=== PATIENT | female | born 1960 | race Caucasian/White ===

== ENCOUNTER → 2017-03-07 | Outpatient (CLI) | payer BC ==
--- NOTE | 2017-03-08 10:47 | MM ---
Reason for exam: screening (asymptomatic). Last mammogram was performed 7 years ago. History: Patient is postmenopausal and is nulliparous. Taking estrogen for 12 years beginning at age 45. Physical Findings: A clinical breast exam by your physician is recommended on an annual basis and results should be correlated with mammographic findings. MG 3D Screening Mammo W/Cad Bilateral CC and MLO view(s) were taken. Prior study comparison: March 09, 2010, bilateral digital screening mammogram. February 21, 2007, CAD bilateral diagnostic mammogram. The breast tissue is heterogeneously dense. This may lower the sensitivity of mammography. Benign calcifications. New nodular density far posterior right breast. No significant changes when compared with prior studies. ASSESSMENT: Incomplete: need additional imaging evaluation, BI-RAD 0 RECOMMENDATION: Special view mammogram of the right breast. If lesion persists on supplemental views, image directed ultrasound is recommended. [facility] will attempt to contact patient to return for supplemental views and ultrasound if indicated.
== END | disposition home or self-care (01) ==
LOC: RADMAMWWP 08:23
PROVIDERS: ATTEND Family Medicine
DX: Z12.31 Encounter for screening mammogram for malignant neoplasm of breast (principal)
CPT/HCPCS: 77063; G0202

== ENCOUNTER → 2017-03-13 | Outpatient (CLI) | payer BC ==
--- NOTE | 2017-03-13 09:51 | MM ---
Reason for exam: additional evaluation requested from abnormal screening. Last mammogram was performed less than 1 month ago. History: Patient is postmenopausal and is nulliparous. Taking estrogen for 12 years beginning at age 45. Physical Findings: Nurse did not find any significant physical abnormalities on exam. MG 3D Work Up W/Cad RT CC, MLO, ML, spot compression CC, and spot compression MLO view(s) were taken of the right breast. Prior study comparison: March 07, 2017, bilateral MG 3d screening mammo w/cad. March 09, 2010, bilateral digital screening mammogram. Density is improved. 6 month follow up is recommended. These results were verbally communicated with the patient and result sheet given to the patient on 03/13/17. ASSESSMENT: Probably benign, BI-RAD 3 RECOMMENDATION: Follow-up diagnostic mammogram of the right breast in 6 months.
== END | disposition home or self-care (01) ==
LOC: RADMAMWWP 08:43
PROVIDERS: ATTEND Family Medicine
DX: R92.8 Other abnormal and inconclusive findings on diagnostic imaging of breast (principal)
CPT/HCPCS: G0206; G0279

== ENCOUNTER 2017-07-13 09:19 | Day surgery (SDC) | payer BC ==
[2017-07-10 14:58] VITALS: BMI 20.7
[~2017-07-13 09:19] MED LIST: LACTATED RINGERS 1,000 ML IV SCH; LIDOCAINE 1% 20 ML VIAL (10MG/ML) FOR IV START INTRADERMA PRN
[2017-07-13 10:18] VITALS: RESP 16
[2017-07-13] MEDS ORDERED: ONDANSETRON 4 MG/2 ML VIAL IVP ONE (10:53)
[2017-07-13] MEDS ORDERED: GLYCOPYRROLATE 0.2 MG/ML 2 ML VIAL ONE (11:26)
[2017-07-13] MEDS ORDERED: PROPOFOL 10 MG/ML 20 ML VIAL IV ONE (11:26)
[2017-07-13] MEDS ORDERED: LIDOCAINE 1% INJ 10MG/ML (20 ML MDV) ONE (11:26)
--- NOTE | 2017-07-13 11:40 | P.GSHP ---
History of Present Illness H&P Date: 07/13/17 Chief Complaint: Diarrhea This a 56-year-old female who's had issues with diarrhea. Patient has had diarrhea for proximal. She's had some mild abdominal pain. Her last colonoscopy was over 5 years ago. She's had a previous bowel resection. - Constitutional Constitutional: Reports as per HPI Past Medical History Past Medical History: Hyperlipidemia, Hypertension Additional Past Medical History / Comment(s): MOTHER HAS COLON CA. POS WATERY LOOSE STOOLS SINCE 04/2017; HX "TWISTED BOWL, AFTER HYSTERECTOMY 2004." History of Any Multi-Drug Resistant Organisms: None Reported Past Surgical History: Appendectomy, Bowel Resection, Hysterectomy, Orthopedic Surgery Additional Past Surgical History / Comment(s): Mitral Valve Repair 2005. JAYANT ANKLE LIGAMENT REPAIR; RT KNEE MENISCUS; RT SHOULDER SURG; JAYANT ELBOW TENDINITIS SURG. JAYANT CATARACTS. Past Anesthesia/Blood Transfusion Reactions: Family History of Problems w/ Anesthesia, Postoperative Nausea & Vomiting (PONV) Additional Past Anesthesia/Blood Transfusion Reaction / Comment(s): MOTHER HAD PONV. Smoking Status: Never smoker - Past Family History Mother Family Medical History: Cancer Medications and Allergies Home Medications Medication Instructions Recorded Confirmed Type Aspirin 325 mg PO DAILY 09/25/14 07/10/17 History Estrogens, Conjugated [Premarin] 0.3 mg PO DAILY 09/25/14 07/13/17 History Lisinopril [Prinivil] 40 mg PO DAILY 09/25/14 07/10/17 History Metoprolol Succinate (ER) [Toprol 25 mg PO DAILY 07/10/17 07/10/17 History Xl] Multivit with Calcium,Iron,Min 1 each PO DAILY 07/10/17 07/10/17 History [Women's Multivitamin] Simvastatin [Simvastatin] 40 mg PO HS 07/10/17 07/13/17 History Allergies Allergy/AdvReac Type Severity Reaction Status Date / Time latex Allergy Rash/Hives Verified 09/25/14 05:23 Penicillins Allergy Rash/Hives Verified 09/25/14 05:23 acetaminophen [From Vicodin] AdvReac Confusion Verified 09/25/14 05:23 codeine AdvReac Confusion Verified 09/25/14 05:23 hydrocodone bitartrate AdvReac Confusion, Verified 07/10/17 14:35 [From Vicodin] ELEV HR, RASH Surgical - Exam Vital Signs Pulse Resp BP Pulse Ox 59 L 16 122/82 100 07/13/17 10:15 07/13/17 10:15 07/13/17 10:15 07/13/17 10:15 - General well developed - Eyes PERRL - ENT normal pinna - Neck no masses - Respiratory normal expansion - Abdomen Abdomen: soft, non tender Assessment and Plan Plan: Diarrhea. We'll perform colonoscopy.
--- NOTE | 2017-07-13 12:02 | P.OP ---
Date of Procedure: 07/13/17 Preoperative Diagnosis: Diarrhea Postoperative Diagnosis: Diarrhea Procedure(s) Performed: Colonoscopy Implants: Anesthesia: MAC Surgeon: Mendez Bull Pathology: other (Rectum) Condition: stable Disposition: PACU Indications for Procedure: Operative Findings: Description of Procedure: The patient's placed on the endoscopy table in the lateral position. She received IV sedation. Digital rectal exam was performed which revealed no abnormalities. The flexible colonoscope was then placed patient anus passed throughout the entire colon. The ileocecal valve was visualized. The patient had a previous right colectomy. The ileocolonic anastomosis visualized. The scope was withdrawn the remainder the ascending colon and transverse colon appeared normal. In the descending; was a few scattered diverticula. Scope was then brought back the rectum and this was questioned inflamed. A biopsies performed. Scope was then withdrawn remainder the rectum appeared normal. Scope was withdrawn for patient.
[2017-07-13 12:32] VITALS: BP 123/71; PULSE 54
== END 2017-07-13 12:37 | disposition home or self-care (01) ==
LOC: ORWHC2ENDO 09:19
PROVIDERS: ATTEND Surgery
DX: K57.30 Diverticulosis of large intestine without perforation or abscess without bleeding (principal); R19.7 Diarrhea, unspecified; Z90.49 Acquired absence of other specified parts of digestive tract; E78.5 Hyperlipidemia, unspecified; I10 Essential (primary) hypertension; Z80.0 Family history of malignant neoplasm of digestive organs; Z79.82 Long term (current) use of aspirin; Z79.899 Other long term (current) drug therapy; Z88.0 Allergy status to penicillin; Z91.040 Latex allergy status
CPT/HCPCS: 88305; 45380; J2405; J2001; J2704

== ENCOUNTER 2019-02-20 04:29 | Emergency (ER) | payer BC ==
[2019-02-20] MEDS ORDERED: ONDANSETRON 4 MG/2 ML VIAL IVP STA (04:53)
[2019-02-20] MEDS ORDERED: SODIUM CHLORIDE 0.9% 500 ML 500 ML IV STA (04:53)
[2019-02-20 05:13] LABS: Basophils % (A) 0 %; Eosinophils # (A) 0.1 k/uL (0-0.7); Eosinophils % (A) 2 %; HCT 38.4 % (34.0-46.0); HGB 12.8 gm/dL (11.4-16.0); Lymphocytes % (A) 22 %; MCH 31.3 pg (25.0-35.0); MCHC 33.3 g/dL (31.0-37.0); Mean Platelet Volume 6.7; Monocytes # (A) 0.4 k/uL (0-1.0); Monocytes % (A) 7 %; Neutrophils # (A) 3.1 k/uL (1.3-7.7); Neutrophils % (A) 67 %; Platelet Count 215 k/uL (150-450); RBC 4.09 m/uL (3.80-5.40); RDW 13.4 % (11.5-15.5); WBC 4.7 k/uL (3.8-10.6)
--- NOTE | 2019-02-20 05:22 | ED ---
Nausea/Vomiting/Diarrhea HPI - General Chief complaint: Abdominal Pain Stated complaint: back pain/headache Time Seen by Provider: 02/20/19 04:36 Source: patient Mode of arrival: ambulatory Limitations: no limitations - History of Present Illness Initial comments: This patient's 58-year-old woman who presents to be evaluated for nausea, diarrhea, and abdominal pain. The patient states that this had started on Monday, with some generalized abdominal cramping, nausea and diarrhea. She states that she was feeling a little bit better and went to work last night. While she was at work however she began to have a recurrence of the diarrhea and the cramping. I states she was also feeling somewhat lightheaded and felt she may be a bit dehydrated. She felt she should be evaluated for this. Patient denies fever or chills. She has not had vomiting though is having nausea. No bright red blood or dark tarry stools. MD complaint: nausea, diarrhea, abdominal pain - Related Data Home Medications Medication Instructions Recorded Confirmed Aspirin 325 mg PO DAILY 09/25/14 07/10/17 Estrogens, Conjugated [Premarin] 0.3 mg PO DAILY 09/25/14 07/13/17 Lisinopril [Prinivil] 40 mg PO DAILY 09/25/14 07/10/17 Metoprolol Succinate (ER) [Toprol 25 mg PO DAILY 07/10/17 07/10/17 Xl] Multivit with Calcium,Iron,Min 1 each PO DAILY 07/10/17 07/10/17 [Women's Multivitamin] Simvastatin 40 mg PO HS 07/10/17 07/13/17 Allergies Allergy/AdvReac Type Severity Reaction Status Date / Time latex Allergy Rash/Hives Verified 02/20/19 04:40 Penicillins Allergy Rash/Hives Verified 02/20/19 04:40 acetaminophen [From Vicodin] AdvReac Confusion Verified 02/20/19 04:40 codeine AdvReac Confusion Verified 02/20/19 04:40 hydrocodone bitartrate AdvReac Confusion, Verified 02/20/19 04:40 [From Vicodin] ELEV HR, RASH Review of Systems ROS Statement: Those systems with pertinent positive or pertinent negative responses have been documented in the HPI. ROS Other: All systems not noted in ROS Statement are negative. Constitutional: Denies: fever, chills, weakness Respiratory: Denies: cough, dyspnea Cardiovascular: Denies: chest pain, palpitations, edema Gastrointestinal: Reports: abdominal pain, nausea, diarrhea. Denies: vomiting, constipation, melena, hematochezia Genitourinary: Denies: dysuria, hematuria Musculoskeletal: Denies: back pain Skin: Denies: rash Neurological: Denies: headache Past Medical History Past Medical History: Hyperlipidemia, Hypertension Additional Past Medical History / Comment(s): MOTHER HAS COLON CA. POS WATERY LOOSE STOOLS SINCE 04/2017; HX "TWISTED BOWeL, AFTER HYSTERECTOMY 2004." History of Any Multi-Drug Resistant Organisms: None Reported Past Surgical History: Appendectomy, Bowel Resection, Hysterectomy, Orthopedic Surgery Additional Past Surgical History / Comment(s): Mitral Valve Repair 2005. JAYANT ANKLE LIGAMENT REPAIR; RT KNEE MENISCUS; RT SHOULDER SURG; JAYANT ELBOW TENDINITIS SURG. JAYANT CATARACTS. Past Anesthesia/Blood Transfusion Reactions: Family History of Problems w/ Anesthesia, Postoperative Nausea & Vomiting (PONV) Additional Past Anesthesia/Blood Transfusion Reaction / Comment(s): MOTHER HAD PONV. Past Psychological History: No Psychological Hx Reported Smoking Status: Never smoker - Past Family History Mother Family Medical History: Cancer General Exam Limitations: no limitations General appearance: alert, in no apparent distress Head exam: Present: atraumatic, normocephalic Eye exam: Present: normal appearance. Absent: scleral icterus, conjunctival injection ENT exam: Present: mucous membranes dry Respiratory exam: Present: normal lung sounds bilaterally. Absent: respiratory distress, wheezes, rales, rhonchi, stridor Cardiovascular Exam: Present: regular rate, normal rhythm, normal heart sounds. Absent: systolic murmur, diastolic murmur, rubs, gallop GI/Abdominal exam: Present: soft. Absent: distended, tenderness, guarding, rebound, rigid, mass Extremities exam: Present: normal inspection, normal capillary refill. Absent: pedal edema, calf tenderness Back exam: Present: normal inspection. Absent: CVA tenderness (R), CVA tenderness (L) Neurological exam: Present: alert Skin exam: Present: warm, dry, intact, normal color. Absent: rash Course Vital Signs 02/20/19 02/20/19 02/20/19 04:37 06:31 07:14 Temperature 97.4 F L 97.8 F Pulse Rate 69 51 L Respiratory 16 18 16 Rate Blood Pressure 98/64 96/56 O2 Sat by Pulse 100 100 Oximetry Medical Decision Making - Lab Data Result diagrams: 02/20/19 05:00 02/20/19 05:00 Lab Results 02/20/19 02/20/19 Range/Units 05:00 05:00 WBC 4.7 (3.8-10.6) k/uL RBC 4.09 (3.80-5.40) m/uL Hgb 12.8 (11.4-16.0) gm/dL Hct 38.4 (34.0-46.0) % MCV 94.0 (80.0-100.0) fL MCH 31.3 (25.0-35.0) pg MCHC 33.3 (31.0-37.0) g/dL RDW 13.4 (11.5-15.5) % Plt Count 215 (150-450) k/uL Neutrophils % 67 % Lymphocytes % 22 % Monocytes % 7 % Eosinophils % 2 % Basophils % 0 % Neutrophils # 3.1 (1.3-7.7) k/uL Lymphocytes # 1.0 (1.0-4.8) k/uL Monocytes # 0.4 (0-1.0) k/uL Eosinophils # 0.1 (0-0.7) k/uL Basophils # 0.0 (0-0.2) k/uL Sodium 138 (137-145) mmol/L Potassium 4.1 (3.5-5.1) mmol/L Chloride 112 H (98-107) mmol/L Carbon Dioxide 18 L (22-30) mmol/L Anion Gap 8 mmol/L BUN 15 (7-17) mg/dL Creatinine 1.15 H (0.52-1.04) mg/dL Est GFR (CKD-EPI)AfAm 60 (>60 ml/min/1.73 sqM) Est GFR (CKD-EPI)NonAf 52 (>60 ml/min/1.73 sqM) Glucose 95 (74-99) mg/dL Calcium 10.9 H (8.4-10.2) mg/dL Total Bilirubin 0.5 (0.2-1.3) mg/dL AST 30 (14-36) U/L ALT 35 (9-52) U/L Alkaline Phosphatase 72 (38-126) U/L Total Protein 6.4 (6.3-8.2) g/dL Albumin 4.0 (3.5-5.0) g/dL Amylase 47 (30-110) U/L Lipase 161 (23-300) U/L Disposition Clinical Impression: Abdominal pain Disposition: HOME SELF-CARE Condition: Good Instructions (If sedation given, give patient instructions): Abdominal Pain (ED) Is patient prescribed a controlled substance at d/c from ED?: No Referrals: Francisco Javier Malone DO [Primary Care Provider] - 1-2 days
[2019-02-20 05:24] LABS: Calcium 10.9 mg/dL (8.4-10.2); Potassium 4.1 mmol/L (3.5-5.1); Total Bilirubin 0.5 mg/dL (0.2-1.3); Total Protein 6.4 g/dL (6.3-8.2)
[2019-02-20 07:15] VITALS: BP 96/56; PULSE 51; RESP 16; TEMP 97.8
--- NOTE | 2019-02-20 07:17 | CT ---
EXAM: CT Abdomen and Pelvis Without Intravenous Contrast CLINICAL HISTORY: Diarrhea, nausea and vomiting TECHNIQUE: Axial computed tomography images of the abdomen and pelvis without intravenous contrast. CTDI is 5.87 mGy and DLP is 307.9 mGy-cm. This CT exam was performed using one or more of the following dose reduction techniques: automated exposure control, adjustment of the mA and/or kV according to patient size, and/or use of iterative reconstruction technique. COMPARISON: No relevant prior studies available. FINDINGS: Lung bases: Unremarkable. No mass. No consolidation. Heart: Evidence of mitral valve replacement is suggested. ABDOMEN: Liver: Unremarkable. Gallbladder and bile ducts: Unremarkable. No calcified stones. No ductal dilation. Pancreas: Unremarkable. No ductal dilation. Spleen: Unremarkable. No splenomegaly. Adrenals: Unremarkable. No mass. Kidneys and ureters: Unremarkable. No obstructing stones. No hydronephrosis. Stomach and bowel: Evaluation of bowel mucosa is limited without contrast. Postsurgical changes noted in the right lower quadrant near the ileocecal valve region. The stomach is predominantly decompressed. Scattered diverticulosis noted involving the distal colon. No obstruction. PELVIS: Appendix: The appendix is not clearly identified and may be surgically absent. Bladder: Unremarkable. No stones. Reproductive: The uterus is surgically absent. ABDOMEN and PELVIS: Intraperitoneal space: Unremarkable. No free air. No significant fluid collection. Bones/joints: No acute fracture. No dislocation. Soft tissues: Unremarkable. Vasculature: Mild atherosclerotic changes involving the aorta are noted. No abdominal aortic aneurysm. Lymph nodes: Nonspecific scattered mesenteric lymph nodes noted. IMPRESSION: Postsurgical changes involving the right lower quadrant. Negative noncontrast CT examination of the abdomen and pelvis without evidence for bowel obstruction. No free intraperitoneal fluid or pneumoperitoneum.
== END 2019-02-20 07:30 | disposition home or self-care (01) ==
LOC: EC 04:29
DX: R10.84 Generalized abdominal pain (principal); M54.9 Dorsalgia, unspecified; R51 Headache; R19.7 Diarrhea, unspecified; R11.0 Nausea; Z79.82 Long term (current) use of aspirin; Z79.890 Hormone replacement therapy; Z79.899 Other long term (current) drug therapy; Z91.040 Latex allergy status; Z88.0 Allergy status to penicillin; Z88.6 Allergy status to analgesic agent; Z88.5 Allergy status to narcotic agent; E78.5 Hyperlipidemia, unspecified; I10 Essential (primary) hypertension; Z90.710 Acquired absence of both cervix and uterus; Z90.49 Acquired absence of other specified parts of digestive tract; Z98.890 Other specified postprocedural states; Z80.0 Family history of malignant neoplasm of digestive organs
CPT/HCPCS: 36415; 74176; 80053; 82150; 83690; 85025; 96361; 96374; 99284

== ENCOUNTER → 2019-03-19 | Outpatient (CLI) | payer BC ==
--- NOTE | 2019-03-19 15:45 | US ---
EXAMINATION TYPE: US abdomen complete DATE OF EXAM: 03/19/2019 COMPARISON: CLINICAL HISTORY: K81.9,Cholecystitis R19.7 Diarrhea. Diarrhea, pain after eating EXAM MEASUREMENTS: Liver Length: 14.0 cm Gallbladder Wall: 0.2 cm CBD: 0.2 cm Spleen: 8.1 cm Right Kidney: 8.6 x 2.9 x 3.2 cm Left Kidney: 8.5 x 3.4 x 4.0 cm Pancreas: wnl Liver: wnl Gallbladder: wnl, fold seen Evidence for sonographic Felipe's sign: neg CBD: wnl Spleen: wnl Right Kidney: prominent pyramids Left Kidney: prominent pyramids Upper IVC: wnl Abd Aorta: No AAA visualized. Aorta tapers through its visualized course. IMPRESSION: 1. Normal abdomen ultrasound
== END | disposition home or self-care (01) ==
LOC: RADUSWWP 06:52
PROVIDERS: ATTEND Family Medicine
DX: R19.7 Diarrhea, unspecified (principal); K81.9 Cholecystitis, unspecified
CPT/HCPCS: 76700

== ENCOUNTER → 2019-04-22 | Outpatient (CLI) | payer BC ==
--- NOTE | 2019-04-22 15:24 | NM ---
EXAMINATION TYPE: NM hepatobiliary w CCK DATE OF EXAM: 04/22/2019 COMPARISON: Abdominal ultrasound dated 03/19/2019 HISTORY: Biliary dyskinesia TECHNIQUE: After the intravenous administration of 4.67 mCi Tc 99m Mebrofenin hepatobiliary scintigra phy is performed. Immediate images post injection. FINDINGS: There is satisfactory initial accumulation of tracer by the liver. The gallbladder is visualized wit hin 26 minutes. The small bowel activity is noted within the minutes. At one hour CCK was administe red, patient was injected with 1.0 mcg of Kinevac, and gallbladder ejection fraction is calculated at 58 %, in the normal range. Therefore there is no scintigraphic evidence of cystic or common bile du ct obstruction to suggest acute cholecystitis or gallbladder dyskinesia. IMPRESSION: No scintigraphic evidence of acute cholecystitis, chronic cholecystitis or biliary dyskin esia.
== END ==
LOC: RADNMMAIN 12:28
PROVIDERS: ATTEND Surgery
DX: K82.8 Other specified diseases of gallbladder (principal)
CPT/HCPCS: 78227; A9537; J2805

== ENCOUNTER 2019-04-29 09:19 | Day surgery (SDC) | payer BC ==
[2019-04-24 13:17] VITALS: BMI 20.1
[~2019-04-29 09:19] MED LIST changes: -LIDOCAINE 1% 20 ML VIAL (10MG/ML) FOR IV START INTRADERMA PRN
[2019-04-29 10:05] VITALS: TEMP 97.8
[2019-04-29] MEDS ORDERED: LIDOCAINE 1% 20 ML VIAL (10MG/ML) FOR IV START INTRADERMA ONE (10:05)
[2019-04-29] MEDS ORDERED: LACTATED RINGERS 1,000 ML IV ONE (10:05)
[2019-04-29] MEDS ORDERED: ONDANSETRON 4 MG/2 ML VIAL IVP ONE (10:14)
[2019-04-29] MEDS ORDERED: PROPOFOL 10 MG/ML 20 ML VIAL IV ONE (10:50)
--- NOTE | 2019-04-29 10:56 | P.GSHP ---
History of Present Illness H&P Date: 04/29/19 Chief Complaint: Epigastric abdominal pain, nausea, diarrhea This a 58-year-old female who presents today for EGD and colonoscopy. She's had complaints of epigastric dull pain, nausea and diarrhea. Past Medical History Past Medical History: Hyperlipidemia, Hypertension Additional Past Medical History / Comment(s): MOTHER HAS COLON CA. POS WATERY LOOSE STOOLS SINCE 04/2017; HX "TWISTED BOWeL, AFTER HYSTERECTOMY 2004." History of Any Multi-Drug Resistant Organisms: None Reported Past Surgical History: Appendectomy, Bowel Resection, Hysterectomy, Orthopedic Surgery Additional Past Surgical History / Comment(s): Mitral Valve Repair 2005. JAYANT ANKLE LIGAMENT REPAIR; RT KNEE MENISCUS; RT SHOULDER SURG; JAYANT ELBOW TENDINITIS SURG. JAYANT CATARACTS. Past Anesthesia/Blood Transfusion Reactions: Family History of Problems w/ Anesthesia, Postoperative Nausea & Vomiting (PONV) Additional Past Anesthesia/Blood Transfusion Reaction / Comment(s): MOTHER HAD PONV. Smoking Status: Never smoker - Past Family History Mother Family Medical History: Cancer Additional Family Medical History / Comment(s): colon cancer Medications and Allergies Home Medications Medication Instructions Recorded Confirmed Type Aspirin 325 mg PO DAILY 09/25/14 04/24/19 History Estrogens, Conjugated [Premarin] 0.3 mg PO Q48H 09/25/14 04/24/19 History Lisinopril [Prinivil] 10 mg PO DAILY 09/25/14 04/24/19 History Metoprolol Succinate (ER) [Toprol 25 mg PO DAILY 07/10/17 04/24/19 History Xl] Multivit with Calcium,Iron,Min 1 each PO DAILY 07/10/17 04/24/19 History [Women's Multivitamin] Simvastatin 10 mg PO Q48H 07/10/17 04/24/19 History ALPRAZolam [Xanax] 0.25 mg PO HS 04/24/19 04/24/19 History Cholecalciferol (Vitamin D3) 500 unit PO DAILY 04/24/19 04/24/19 History [Vitamin D3] Escitalopram [Lexapro] 5 mg PO DAILY 04/24/19 04/24/19 History Allergies Allergy/AdvReac Type Severity Reaction Status Date / Time latex Allergy Rash/Hives Verified 04/24/19 13:08 Penicillins Allergy Rash/Hives Verified 04/24/19 13:08 acetaminophen [From Vicodin] AdvReac Confusion Verified 04/24/19 13:08 codeine AdvReac Confusion Verified 04/24/19 13:08 hydrocodone bitartrate AdvReac Confusion, Verified 04/24/19 13:08 [From Vicodin] ELEV HR, RASH Surgical - Exam Vital Signs Temp Pulse Resp BP Pulse Ox 97.8 F 66 18 142/70 100 04/29/19 10:05 04/29/19 10:05 04/29/19 10:05 04/29/19 10:05 04/29/19 10:05 - General well developed, well nourished, no distress - Eyes PERRL - ENT normal pinna - Neck no masses - Respiratory normal expansion - Cardiovascular Rhythm: regular - Abdomen Abdomen: soft, non tender Assessment and Plan Assessment: History of epigastric abdominal pain, nausea, diarrhea. We'll perform EGD and colonoscopy.
--- NOTE | 2019-04-29 11:16 | P.OP ---
Date of Procedure: 04/29/19 Preoperative Diagnosis: Epigastric dull pain Nausea Diarrhea Postoperative Diagnosis: Antral gastritis No evidence of hernia Mild esophagitis Procedure(s) Performed: EGD Anesthesia: MAC Surgeon: Mendez Bull Pathology: other (Antrum, esophagus) Condition: stable Disposition: PACU Description of Procedure: Patient's placed on the endoscopy table in the lateral position. She received IV sedation. The gastroscope placed oropharynx and passed in the esophagus and into the stomach. Scope then placed through the pylorus. First and second portion of the duodenum appeared normal. The scope was then brought back the antrum this appeared Mildly inflamed. A biopsies performed. The scope was then retroflexed and the remainder of the stomach appeared normal. There is no significant hiatal hernia. The GE junction was at 40 cm. The distal esophagus appeared mildly inflamed and a biopsies performed. The proximal esophagus appeared normal. Scope withdrawn patient. Next digital rectal exam was performed, this revealed no rales. The flexible colonoscope was then placed patient anus and passed with colon. The patient appears right colectomy. The ileocolonic anastomosis cannot be well visualized. Several times made to maneuver the colonoscope however this wasn't possible. At this point scope withdrawn. The remainder of the transverse colon descending colon and sigmoid colon appeared normal. There is known to any inflammation throughout the colon. The scope was then brought back the rectum this appeared normal. Scope withdrawn for patient.
[2019-04-29 12:08] VITALS: BP 107/67; PULSE 50; RESP 15
== END 2019-04-29 12:01 | disposition home or self-care (01) ==
LOC: ORWHC2ENDO 09:19
PROVIDERS: ATTEND Surgery
DX: K29.50 Unspecified chronic gastritis without bleeding (principal); K20.9 Esophagitis, unspecified; R19.7 Diarrhea, unspecified; Z90.49 Acquired absence of other specified parts of digestive tract; Z98.0 Intestinal bypass and anastomosis status; Z80.0 Family history of malignant neoplasm of digestive organs; I10 Essential (primary) hypertension; E78.5 Hyperlipidemia, unspecified; F32.9 Major depressive disorder, single episode, unspecified; F41.9 Anxiety disorder, unspecified; Z90.710 Acquired absence of both cervix and uterus; Z79.82 Long term (current) use of aspirin; Z79.899 Other long term (current) drug therapy; Z88.0 Allergy status to penicillin; Z88.5 Allergy status to narcotic agent; Z91.040 Latex allergy status
CPT/HCPCS: 45378; 43239; 88305; J2405; J2704

== ENCOUNTER 2021-10-07 11:58 | Inpatient (IN) | payer BC ==
--- NOTE | 2021-10-07 12:23 | ED ---
General Adult HPI - General Chief complaint: Shortness of Breath Stated complaint: cardiac history with tachycardia Time Seen by Provider: 10/07/21 12:20 Source: patient, family Mode of arrival: ambulatory Limitations: no limitations - History of Present Illness Initial comments: Patient presents to the ED with her niece for evaluation. Patient states that for the past week or so, she has had exertional dyspnea, lightheadedness and symptoms of "acid reflux". Patient also states that she has had right scapular pain and left-sided neck pain for the past week or so. Patient also states that she had an elevated heart rate reading on her home monitor earlier today. Patient states that she has chronic and unchanged diarrhea. Patient's niece states that the patient's speech seemed a little slurred to her over the telephone when she called her earlier today, but she states that the patient's speech is now normal. Patient denies trauma or injury, fever or chills, headache, focal numbness/weakness/neuro deficit, visual changes, chest pain or p ressure, arm pain, jaw pain, lower back pain, pleuritic pain, cough or cold symptoms, palpitations, syncope, abdominal pain, nausea/vomiting, bloody or melanotic stool, dysuria/hematuria/urinary frequency/urinary symptoms, leg or calf swelling or pain, or any other symptoms or complaints. - Related Data Home Medications Medication Instructions Recorded Confirmed Aspirin 325 mg PO DAILY 09/25/14 10/07/21 Lisinopril [Prinivil] 10 mg PO DAILY 09/25/14 10/07/21 Metoprolol Succinate (ER) [Toprol 25 mg PO DAILY 07/10/17 10/07/21 Xl] Multivit with Calcium,Iron,Min 1 each PO DAILY 07/10/17 10/07/21 [Women's Multivitamin] ALPRAZolam [Xanax] 0.25 mg PO HS 04/24/19 10/07/21 Escitalopram [Lexapro] 10 mg PO DAILY 04/24/19 10/07/21 Atorvastatin [Lipitor] 10 mg PO DAILY 10/07/21 10/07/21 Allergies Allergy/AdvReac Type Severity Reaction Status Date / Time latex Allergy Rash/Hives Verified 10/07/21 14:06 Penicillins Allergy Rash/Hives Verified 10/07/21 14:06 acetaminophen [From Vicodin] AdvReac Confusion Verified 10/07/21 14:06 codeine AdvReac Confusion Verified 10/07/21 14:06 hydrocodone bitartrate AdvReac Confusion, Verified 10/07/21 14:06 [From Vicodin] ELEV HR, RASH Review of Systems ROS Statement: Those systems with pertinent positive or pertinent negative responses have been documented in the HPI. ROS Other: All systems not noted in ROS Statement are negative. Past Medical History Past Medical History: Hyperlipidemia, Hypertension Additional Past Medical History / Comment(s): MOTHER HAS COLON CA. POS WATERY LOOSE STOOLS SINCE 04/2017; HX "TWISTED BOWeL, AFTER HYSTERECTOMY 2004." History of Any Multi-Drug Resistant Organisms: None Reported Past Surgical History: Appendectomy, Bowel Resection, Hysterectomy, Orthopedic Surgery Additional Past Surgical History / Comment(s): Mitral Valve Repair 2005. JAYANT ANKLE LIGAMENT REPAIR; RT KNEE MENISCUS; RT SHOULDER SURG; JAYANT ELBOW TENDINITIS SURG. JAYANT CATARACTS. Past Anesthesia/Blood Transfusion Reactions: Family History of Problems w/ Anesthesia, Postoperative Nausea & Vomiting (PONV) Additional Past Anesthesia/Blood Transfusion Reaction / Comment(s): MOTHER HAD PONV. Past Psychological History: No Psychological Hx Reported Smoking Status: Never smoker Past Alcohol Use History: Rare Past Drug Use History: None Reported - Past Family History Mother Family Medical History: Cancer Additional Family Medical History / Comment(s): colon cancer General Exam Limitations: no limitations General appearance: alert, in no apparent distress Head exam: Present: atraumatic, normocephalic Eye exam: Present: normal appearance, PERRL, EOMI ENT exam: Present: mucous membranes dry Neck exam: Present: other (Trachea is in midline). Absent: tenderness, meningismus Respiratory exam: Present: normal lung sounds bilaterally. Absent: respiratory distress, wheezes, rales, rhonchi, stridor Cardiovascular Exam: Present: normal rhythm, tachycardia, normal heart sounds, other (1+ radial pulses bilaterally) GI/Abdominal exam: Present: soft. Absent: distended, tenderness, guarding Extremities exam: Present: full ROM, other (Negative Homans sign bilaterally). Absent: tenderness, pedal edema, calf tenderness Back exam: Absent: tenderness, CVA tenderness (R), CVA tenderness (L) Neurological exam: Present: alert, oriented X3, CN II-XII intact. Absent: motor sensory deficit Psychiatric exam: Present: normal affect, normal mood Skin exam: Present: warm, dry, intact, normal color Course Vital Signs 10/07/21 10/07/21 10/07/21 12:10 12:30 13:29 Temperature 96.4 F L Pulse Rate 110 H 98 Pulse Rate [ 99 [employer] ] Respiratory 18 18 Rate Blood Pressure 55/42 76/44 O2 Sat by Pulse 98 96 Oximetry 10/07/21 10/07/21 14:09 14:11 Temperature Pulse Rate Pulse Rate [ [employer] ] Respiratory 18 Rate Blood Pressure 84/51 O2 Sat by Pulse Oximetry - Reevaluation(s) Reevaluation #1: 10/07/21 14:52 Case, H&P, test results thus far and ED management thus far were discussed with Dr. Luong (cutting machine fixer). He agrees with the ED workup and treatment thus far. He agrees to see the patient in consultation. He has no further recommendations at this time. 10/07/21 15:07 Case, H&P, test results thus far, ED management thus far and my discussion with Dr. Luong as above were discussed with Dr. Davis. Dr. Davis has already seen the patient in the ED. He recommends continued IV fluid boluses given the patient's low blood pressure readings, but he accepts hospital floor admission. He states that he will follow-up with the patient's VQ scan results, and he does not recommend anticoagulation at this time. He has no further recommendations at this time. 10/07/21 15:22 Patient's blood pressure is improving with IV fluid boluses in the ED. Patient remains alert, breathing comfortably and in no acute distress. Patient denies development of any new symptoms while in the ED. Patient and niece are aware of the patient's test results thus far, and patient agrees with hospital admission at this time. EKG Findings - EKG Comments: EKG Findings:: Sinus tachycardia, ventricular rate 107 bpm, no ectopy, normal [place] and QRS intervals, normal QT interval, incomplete right bundle branch block, inferior and anterolateral lateral ST depressions and biphasic T waves, no old EKG is available for comparison Medical Decision Making - Medical Decision Making Patient is noted to have acute renal failure on laboratory evaluation. A CT abdomen/pelvis without contrast has been ordered for further evaluation of the patient's renal failure and is still pending at this time. Patient's d-dimer is mildly elevated, but given the patient's acute renal failure, a VQ scan was ordered to rule out PE in lieu of a CT scan with IV contrast. Dr. Davis has agreed to follow-up on the patient's VQ scan report. Patient's troponin is within normal limits. The etiology of the patient's acute renal failure is unclear at this time. Patient's blood pressure has improved with IV fluid hydration in the ED, and will continue to fluid rehydrate the patient. Dr. Davis has accepted hospital admission. Nephrology has been consulted. - Lab Data Result diagrams: 10/07/21 12:33 10/07/21 16:00 Lab Results 10/07/21 10/07/21 10/07/21 Range/Units 12:33 12:33 12:33 WBC 8.0 (3.8-10.6) k/uL RBC 4.17 (3.80-5.40) m/uL Hgb 13.3 (11.4-16.0) gm/dL Hct 41.4 (34.0-46.0) % MCV 99.3 (80.0-100.0) fL MCH 32.0 (25.0-35.0) pg MCHC 32.2 (31.0-37.0) g/dL RDW 12.5 (11.5-15.5) % Plt Count 337 (150-450) k/uL MPV 7.6 Neutrophils % 61 % Lymphocytes % 26 % Monocytes % 9 % Eosinophils % 1 % Basophils % 0 % Neutrophils # 4.9 (1.3-7.7) k/uL Lymphocytes # 2.1 (1.0-4.8) k/uL Monocytes # 0.7 (0-1.0) k/uL Eosinophils # 0.1 (0-0.7) k/uL Basophils # 0.0 (0-0.2) k/uL PT 10.0 (9.0-12.0) sec INR 0.9 (<1.2) APTT 23.1 (22.0-30.0) sec D-Dimer 0.82 H (<0.60) mg/L FEU Sodium 137 (137-145) mmol/L Potassium 3.9 (3.5-5.1) mmol/L Chloride 111 H (98-107) mmol/L Carbon Dioxide 7 L* (22-30) mmol/L Anion Gap 19 mmol/L BUN 69 H (7-17) mg/dL Creatinine 7.89 H* (0.52-1.04) mg/dL Est GFR (CKD-EPI)AfAm 6 (>60 ml/min/1.73 sqM) Est GFR (CKD-EPI)NonAf 5 (>60 ml/min/1.73 sqM) Glucose 119 H (74-99) mg/dL Plasma Lactic Acid Chava (0.7-2.0) mmol/L Calcium 11.4 H (8.4-10.2) mg/dL Magnesium 1.5 L (1.6-2.3) mg/dL Total Bilirubin 0.4 (0.2-1.3) mg/dL AST 16 (14-36) U/L ALT 13 (4-34) U/L Alkaline Phosphatase 87 (38-126) U/L Troponin I (0.000-0.034) ng/mL NT-Pro-B Natriuret Pep pg/mL Total Protein 7.8 (6.3-8.2) g/dL Albumin 4.5 (3.5-5.0) g/dL Coronavirus (PCR) (Not Detectd) 10/07/21 10/07/21 10/07/21 Range/Units 12:33 12:33 12:33 WBC (3.8-10.6) k/uL RBC (3.80-5.40) m/uL Hgb (11.4-16.0) gm/dL Hct (34.0-46.0) % MCV (80.0-100.0) fL MCH (25.0-35.0) pg MCHC (31.0-37.0) g/dL RDW (11.5-15.5) % Plt Count (150-450) k/uL MPV Neutrophils % % Lymphocytes % % Monocytes % % Eosinophils % % Basophils % % Neutrophils # (1.3-7.7) k/uL Lymphocytes # (1.0-4.8) k/uL Monocytes # (0-1.0) k/uL Eosinophils # (0-0.7) k/uL Basophils # (0-0.2) k/uL PT (9.0-12.0) sec INR (<1.2) APTT (22.0-30.0) sec D-Dimer (<0.60) mg/L FEU Sodium (137-145) mmol/L Potassium (3.5-5.1) mmol/L Chloride (98-107) mmol/L Carbon Dioxide (22-30) mmol/L Anion Gap mmol/L BUN (7-17) mg/dL Creatinine (0.52-1.04) mg/dL Est GFR (CKD-EPI)AfAm (>60 ml/min/1.73 sqM) Est GFR (CKD-EPI)NonAf (>60 ml/min/1.73 sqM) Glucose (74-99) mg/dL Plasma Lactic Acid Chava 1.3 (0.7-2.0) mmol/L Calcium (8.4-10.2) mg/dL Magnesium (1.6-2.3) mg/dL Total Bilirubin (0.2-1.3) mg/dL AST (14-36) U/L ALT (4-34) U/L Alkaline Phosphatase (38-126) U/L Troponin I <0.012 (0.000-0.034) ng/mL NT-Pro-B Natriuret Pep 1370 pg/mL Total Protein (6.3-8.2) g/dL Albumin (3.5-5.0) g/dL Coronavirus (PCR) (Not Detectd) 10/07/21 Range/Units 12:33 WBC (3.8-10.6) k/uL RBC (3.80-5.40) m/uL Hgb (11.4-16.0) gm/dL Hct (34.0-46.0) % MCV (80.0-100.0) fL MCH (25.0-35.0) pg MCHC (31.0-37.0) g/dL RDW (11.5-15.5) % Plt Count (150-450) k/uL MPV Neutrophils % % Lymphocytes % % Monocytes % % Eosinophils % % Basophils % % Neutrophils # (1.3-7.7) k/uL Lymphocytes # (1.0-4.8) k/uL Monocytes # (0-1.0) k/uL Eosinophils # (0-0.7) k/uL Basophils # (0-0.2) k/uL PT (9.0-12.0) sec INR (<1.2) APTT (22.0-30.0) sec D-Dimer (<0.60) mg/L FEU Sodium (137-145) mmol/L Potassium (3.5-5.1) mmol/L Chloride (98-107) mmol/L Carbon Dioxide (22-30) mmol/L Anion Gap mmol/L BUN (7-17) mg/dL Creatinine (0.52-1.04) mg/dL Est GFR (CKD-EPI)AfAm (>60 ml/min/1.73 sqM) Est GFR (CKD-EPI)NonAf (>60 ml/min/1.73 sqM) Glucose (74-99) mg/dL Plasma Lactic Acid Chava (0.7-2.0) mmol/L Calcium (8.4-10.2) mg/dL Magnesium (1.6-2.3) mg/dL Total Bilirubin (0.2-1.3) mg/dL AST (14-36) U/L ALT (4-34) U/L Alkaline Phosphatase (38-126) U/L Troponin I (0.000-0.034) ng/mL NT-Pro-B Natriuret Pep pg/mL Total Protein (6.3-8.2) g/dL Albumin (3.5-5.0) g/dL Coronavirus (PCR) Not Detected (Not Detectd) - Radiology Data Radiology results: report reviewed (Chest x-ray: No acute process. No significant change from prior.) Noncontrast head CT: No acute intracranial hemorrhage or midline shift. There is mild diffuse cerebral atrophy redemonstrated. No significant change from prior. CT abdomen/pelvis without contrast: No renal stones or hydronephrosis is seen bilaterally. Abnormal fluid in the proximal colon could reflect product of diarrhea and/or mild uncomplicated colitis. Correlate clinically. Otherwise no suspicious new or acute findings seen. VQ scan: No scintigraphic evidence for acute pulmonary embolism. Critical Care Time Critical Care Time: Yes Total Critical Care Time: 40 Disposition Clinical Impression: Acute renal failure Narrative: Hypotension Disposition: ADMITTED IP TO THIS HOSP Condition: Stable Is patient prescribed a controlled substance at d/c from ED?: No Time of Disposition: 14:53
[2021-10-07] MEDS ORDERED: SODIUM CHLORIDE 0.9% 1,000 ML IV STA (12:30)
[2021-10-07 12:55] LABS: Basophils % (A) 0 %; Eosinophils # (A) 0.1 k/uL (0-0.7); Eosinophils % (A) 1 %; HCT 41.4 % (34.0-46.0); HGB 13.3 gm/dL (11.4-16.0); Lymphocytes # (A) 2.1 k/uL (1.0-4.8); Lymphocytes % (A) 26 %; MCHC 32.2 g/dL (31.0-37.0); MCV 99.3 fL (80.0-100.0); Mean Platelet Volume 7.6; Monocytes # (A) 0.7 k/uL (0-1.0); Monocytes % (A) 9 %; Neutrophils # (A) 4.9 k/uL (1.3-7.7); Neutrophils % (A) 61 %; Platelet Count 337 k/uL (150-450); RBC 4.17 m/uL (3.80-5.40); RDW 12.5 % (11.5-15.5)
--- NOTE | 2021-10-07 12:58 | XR ---
EXAMINATION TYPE: XR chest 1V portable DATE OF EXAM: 10/07/2021 COMPARISON: Chest x-ray August 06, 2015 HISTORY: Dyspnea and atrial fibrillation. TECHNIQUE: Single AP portable frontal upright view of the chest is obtained. FINDINGS: Overlying sternal wires redemonstrated. Metallic cardiac valvular ring again seen. There is no suspicious new focal air space opacity, pleural effusion, or pneumothorax seen. The cardiac silh ouette size is stable and within normal limits. The osseous structures are demineralized. IMPRESSION: No acute process. No significant change from prior.
[2021-10-07 13:18] LABS: Albumin 4.5 g/dL (3.5-5.0); Calcium 11.4 mg/dL (8.4-10.2); Magnesium 1.5 mg/dL (1.6-2.3); Potassium 3.9 mmol/L (3.5-5.1); Total Bilirubin 0.4 mg/dL (0.2-1.3); Total Protein 7.8 g/dL (6.3-8.2)
--- NOTE | 2021-10-07 13:21 | CT ---
EXAMINATION TYPE: CT brain wo con DATE OF EXAM: 10/07/2021 HISTORY: Lightheadedness, tachycardia CT DLP: 1107.4 mGycm. Automated Exposure Control for Dose Reduction was Utilized. TECHNIQUE: CT scan of the head is performed without contrast. COMPARISON: CT brain September 25, 2014. FINDINGS: There is no acute intracranial hemorrhage or midline shift identified. There is mild diff use ventricular and sulcal prominence consistent with diffuse cerebral atrophy greatest over bilatera l frontal lobes redemonstrated. Guzman-white matter differentiation is maintained. Moderate calcificat ion distal internal carotid arteries bilaterally redemonstrated. The globes are intact and the visual ized sinuses are clear. IMPRESSION: No acute intracranial hemorrhage or midline shift. There is mild diffuse cerebral atrop hy redemonstrated. No significant change from prior.
[2021-10-07 13:31] LABS: INR 0.9 (<1.2); Partial Thromboplastin Time 23.1 sec (22.0-30.0)
[2021-10-07] MEDS ORDERED: Magnesium Replacement Protocol 1 EACH MISC MISCELLANE PRN (14:40)
[2021-10-07] MEDS ORDERED: Potassium Replacement Protocol 1 EACH MISC MISCELLANE PRN (14:40)
[2021-10-07] MEDS ORDERED: SODIUM CHLORIDE 0.9% 1,000 ML IV ONE (14:43)
--- NOTE | 2021-10-07 15:15 | HP ---
HISTORY AND PHYSICAL I am covering for Dr. Malone. DATE OF SERVICE: 10/07/2021 CHIEF COMPLAINT: Shortness of breath and weakness and renal failure. HISTORY OF PRESENT ILLNESS: This 60-year-old woman with a past medical history of hysterectomy and subsequently small bowel resection, being followed by Dr. Malone in the outpatient setting, also has a history of hypertension, hyperlipidemia, and the patient had an elective after hysterectomy in 2004 and surgery with bowel resection. Subsequently patient is having diarrhea on multiple occasions daily. 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 Evaluation showed creatinine 7.9, indicating acute renal failure with severe metabolic acidosis and magnesium was 1.4. Troponins area negative. NT pro proBNP is 1370. EKG which was reviewed personally by me showed sinus tachycardia, incomplete right bundle branch block and diffuse ST-T changes. The patient is admitted for further evaluation and treatment. There is no history of any fever, rigor or chills at this time. The patient also had a CT of the brain which showed no acute abnormalities. A midline shift was noted. Chest x-ray was also personally reviewed and showed no acute process. PAST MEDICAL HISTORY: Bowel resection, hypertension, hyperlipidemia, history of colon cancer in mother, history of appendectomy. HOME MEDICATIONS: Reviewed. They include multivitamin, Toprol-XL, Prinivil, Lexapro, Lipitor, aspirin, Xanax. Doses are reviewed. ALLERGIES: LATEX, PENICILLIN, VICODIN, CODEINE. FAMILY HISTORY: History of colon cancer in the family. SOCIAL HISTORY: No history of smoking. Occasional alcohol intake. REVIEW OF SYSTEMS: ENT: No diminished hearing. No diminished vision. CARDIOVASCULAR SYSTEM: As mentioned earlier. RESPIRATORY SYSTEM: As mentioned earlier. GI: As mentioned earlier. : As mentioned earlier. NERVOUS SYSTEM: As mentioned earlier. ALLERGY/IMMUNOLOGY: No asthma or hay fever. MUSCULOSKELETAL: As mentioned earlier. HEMATOLOGY/ONCOLOGY: No history of anemia. ENDOCRINE: No history of diabetes or hypothyroidism. CONSTITUTIONAL: As mentioned earlier. DERMATOLOGY: Negative. RHEUMATOLOGY: Negative. PSYCHIATRY: As mentioned earlier. PHYSICAL EXAMINATION: Patient alert and oriented x3. Pulse is 98, blood pressure ntd, respiration 18, temperature normal, pulse ox 96% on room air. HEENT: Conjunctivae normal. Oral mucosa dry. NECK: Jugular venous distention . CARDIOVASCULAR: S1, S2 muffled. No S3. No S4. RESPIRATION: Breath sounds diminished at the bases. A few scattered rhonchi. No crackles. ABDOMEN: Soft, scaphoid, nontender. No mass palpable. Status post old surgery, healed scars. LEGS: No edema. No swelling. NERVOUS SYSTEM: Higher functions as mentioned earlier. Moves all 4 limbs. No focal motor or sensory deficit. LYMPHATICS: No lymph node palpable in neck, axillae or groin. SKIN: No ulcer, rash, bleeding. JOINTS: No active deforming arthropathy. LABS: CBC within normal limits and D-dimer is 0.82. Sodium 137, potassium 3.9, CO2 7, and creatinine 7.9. ASSESSMENT: 1. Acute renal failure with acute tubular necrosis and prerenal renal factors secondary to possible dehydration. 2. Chest pain and neck pain for evaluation. 3. Severe dehydration and hypotension, hypovolemic shock, present on admission. 4. Severe diarrhea possibly secondary to short-bowel syndrome. 5. Elevated D-dimer. 6. Hypomagnesemia. 7. Hypercalcemia, possibly secondary dehydration. 8. History of hypertension. 9. History of hyperlipidemia. 10.History of distant bowel and intestinal resection. 11.History of hysterectomy. 12.History of bowel resection. 13.History of mitral valve repair 2005. 14.Incomplete right bundle branch block on EKG. 15.Family history of problems with anesthesia. 16.Family history of colon cancer. 17.Severe protein-calorie malnutrition. BMI 19.3. 18.FULL CODE. RECOMMENDATIONS AND DISCUSSION: In this 60-year-old woman who presented with multiple complex medical issues, we will monitor the patient closely, continue the current medications, continue symptomatic treatment. Will initiate IV fluids. Cardiology consultation. Nephrology evaluation. The exact etiology of renal failure is unknown at this time I would recommend continuing to monitor. I would also recommend a gastroenterology evaluation, probably as an outpatient, for further evaluation. Otherwise, repeat labs. Monitor electrolytes closely. Supplement magnesium. Supplement potassium. CT scan of the abdomen and pelvis was also ordered. Guarded prognosis because of multiple complex medical issues. Further recommendations to follow. A copy of this dictation is being forwarded to Dr. Malone, who is the primary physician. MMODL / IJN: [id number] / KAELYN
[2021-10-07] MEDS: SODIUM CHLORIDE 0.9% 1,000 ML IV SCH (15:57)
--- NOTE | 2021-10-07 16:13 | NM ---
EXAMINATION TYPE: NM pul vent and perfuse DATE OF EXAM: 10/07/2021 COMPARISON: Chest x-ray earlier today HISTORY: Dyspnea and cough. Recent surgery. TECHNIQUE: Utilizing inhalation of 67.8 mCi Tc 99m DTPA aerosol and intravenous injection of 5.0 mCi of Tc 99m MAA, ventilation and perfusion images are acquired post injection in multiple projections. FINDINGS: Normal radiotracer distribution is noted in the lungs. There is no evidence of mismatched defects. IMPRESSION: No scintigraphic evidence for acute pulmonary embolism.
[2021-10-07 16:37] LABS: Calcium 10.1 mg/dL (8.4-10.2)
--- NOTE | 2021-10-07 16:41 | CT ---
EXAMINATION TYPE: CT abdomen pelvis wo con DATE OF EXAM: 10/07/2021 HISTORY: flank pain CT DLP: 295.8 mGycm. Automated Exposure Control for Dose Reduction was Utilized. TECHNIQUE: CT scan of the abdomen and pelvis is performed without oral or IV contrast. COMPARISON: CT abdomen and pelvis February 20, 2019 FINDINGS: Within the limitations of a non-contrast study, the following observations are made. LUNG BASES: Surgical change at level of mitral valve is partially imaged. There is right coronary art shantell stent and/or calcification redemonstrated. Inferior sternal wire partially imaged.. LIVER/GB: Liver heterogeneously hypodense consistent with diffuse fatty infiltration. No biliary dila tation noted. PANCREAS: No significant abnormality is seen. SPLEEN: No significant abnormality is seen. ADRENALS: No significant abnormality is seen. KIDNEYS: No renal stones or hydronephrosis seen bilaterally. No intraluminal calculi in the bladder. BOWEL: Suboptimal evaluation without enteric contrast. Surgical sutures right lower quadrant from alex e-to-side bowel anastomosis redemonstrated. No suspicious small or large bowel dilatation. Few sigmoi d colonic diverticula. Abnormal fluid within the right and transverse colon with air-fluid levels cou ld reflect product of diarrhea and/or uncomplicated mild colitis. Correlate clinically. GENITAL ORGANS: Uterus surgically absent or atrophic in appearance. Scattered bilateral pelvic phlebo liths noted. LYMPH NODES: No greater than 1cm abdominal or pelvic lymph nodes are appreciated. OSSEOUS STRUCTURES: Facet arthropathy lower lumbar levels. OTHER: [id number] calcified plaque of the aorta extends into branch vessels. IMPRESSION: No renal stones or hydronephrosis is seen bilaterally. No abnormal fluid in the proximal colon could reflect product of diarrhea and/or mild uncomplicated colitis. Correlate clinically. Othe rwise no suspicious new or acute findings seen.
[2021-10-07 18:07] LABS: ABG Base Excess -22.2 mmol/L; ABG Oxygen Saturation 99.5 % (94-97); ABG PCO2 21 mmHg (35-45); ABG PO2 169 mmHg (83-108); ABG TCO2 8 mmol/L (19-24); Allen Test Performed? Yes
[2021-10-07 18:10] LABS: ABG HCO3 7 mmol/L (21-25); ABG PH 7.13 (7.35-7.45)
--- NOTE | 2021-10-07 18:41 | P.NPCON ---
History of Present Illness - Reason for Consult Consult date: 10/07/21 acute renal failure - Chief Complaint Diarrhea - History of Present Illness Coming to the hospital with the above complaints. She has history of short gut syndrome with frequent loose watery diarrhea. For the last 1 year it is getting worse to the point she has decreased urine output. Baseline creatinine about 1.0-1.1 MG per DL in August 2020. Denies any nausea vomiting. She always tries to hydrate herself well. History of hypertension on lisinopril. Denies diabetes. No history of NSAID use or recent contrast studies. Hypotensive episodes with systolic and 60s to 70s. Review of Systems Constitutional: Reports as per HPI Past Medical History Past Medical History: Hyperlipidemia, Hypertension Additional Past Medical History / Comment(s): MOTHER HAS COLON CA. POS WATERY LOOSE STOOLS SINCE 04/2017; HX "TWISTED BOWeL, AFTER HYSTERECTOMY 2004." History of Any Multi-Drug Resistant Organisms: None Reported Past Surgical History: Appendectomy, Bowel Resection, Hysterectomy, Orthopedic Surgery Additional Past Surgical History / Comment(s): Mitral Valve Repair 2005. JAYANT ANKLE LIGAMENT REPAIR; RT KNEE MENISCUS; RT SHOULDER SURG; JAYANT ELBOW TENDINITIS SURG. JAYANT CATARACTS. Past Anesthesia/Blood Transfusion Reactions: Family History of Problems w/ Anesthesia, Postoperative Nausea & Vomiting (PONV) Additional Past Anesthesia/Blood Transfusion Reaction / Comment(s): MOTHER HAD PONV. Past Psychological History: No Psychological Hx Reported Smoking Status: Never smoker Past Alcohol Use History: Rare Past Drug Use History: None Reported - Past Family History Mother Family Medical History: Cancer Additional Family Medical History / Comment(s): colon cancer Medications and Allergies Home Medications Medication Instructions Recorded Confirmed Type Aspirin 325 mg PO DAILY 09/25/14 10/07/21 History Lisinopril [Prinivil] 10 mg PO DAILY 09/25/14 10/07/21 History Metoprolol Succinate (ER) [Toprol 25 mg PO DAILY 07/10/17 10/07/21 History Xl] Multivit with Calcium,Iron,Min 1 each PO DAILY 07/10/17 10/07/21 History [Women's Multivitamin] ALPRAZolam [Xanax] 0.25 mg PO HS 04/24/19 10/07/21 History Escitalopram [Lexapro] 10 mg PO DAILY 04/24/19 10/07/21 History Atorvastatin [Lipitor] 10 mg PO DAILY 10/07/21 10/07/21 History Allergies Allergy/AdvReac Type Severity Reaction Status Date / Time latex Allergy Rash/Hives Verified 10/07/21 14:06 Penicillins Allergy Rash/Hives Verified 10/07/21 14:06 acetaminophen [From Vicodin] AdvReac Confusion Verified 10/07/21 14:06 codeine AdvReac Confusion Verified 10/07/21 14:06 hydrocodone bitartrate AdvReac Confusion, Verified 10/07/21 14:06 [From Vicodin] ELEV HR, RASH Physical Exam Vitals: Vital Signs Temp Pulse Pulse Resp BP Pulse Ox 10/07/21 17:50 93 18 92/57 98 10/07/21 17:38 97.6 F 86 17 81/46 100 10/07/21 14:11 84/51 10/07/21 14:09 18 10/07/21 13:29 98 18 76/44 96 10/07/21 12:30 99 10/07/21 12:10 96.4 F L 110 H 18 55/42 98 Intake and Output 10/07/21 10/07/21 10/07/21 06:59 14:59 22:59 Other: Weight 44.906 kg No acute distress S1-S2 heard Lungs clear No edema Results - Lab Results Most recent lab results ABG pH 7.13 (7.35-7.45) L* 10/07/21 18:00 ABG pCO2 21 mmHg (35-45) L 10/07/21 18:00 ABG pO2 169 mmHg (83-108) H 10/07/21 18:00 ABG HCO3 7 mmol/L (21-25) L* 10/07/21 18:00 ABG O2 Saturation 99.5 % (94-97) H 10/07/21 18:00 Calcium 10.1 mg/dL (8.4-10.2) 10/07/21 16:00 Magnesium 1.5 mg/dL (1.6-2.3) L 10/07/21 12:33 10/07/21 12:33 10/07/21 16:00 Assessment and Plan Assessment: #1 acute kidney injury suspect hemodynamic ATN with low blood pressures and concomitant use of lisinopril/volume depletion. #2 hypotensive episodes secondary to volume depletion #3 hypertension on lisinopril currently hypotensive #4 anion gap and non-anion gap metabolic acidosis secondary to acute kidney injury and diarrhea #5 shock and cut syndrome Plan: #1 agree with holding lisinopril. #2 aggressive IV fluids with normal saline at 125 ML's an hour. At sodium bicarbonate infusion 800 ML's an hour. #3 labs in the morning #4 no acute indication for renal replacement therapy at this time #4 check urine analysis and urine electrolytes.
[2021-10-07 19:24] LABS: Appearance,Urine Cloudy (Clear); Bacteria,Urine Rare /hpf; Bilirubin,Urine Negative (Negative); Blood,Urine Negative (Negative); Color,Urine Yellow; Glucose,Urine (UA) Negative (Negative); Hyaline Casts,Urine 38 /lpf (0-2); Ketones,Urine Negative (Negative); Leukocyte Esterase,Urine Negative (Negative); Mucus,Urine Occasional /hpf; Nitrite,Urine Negative (Negative); PH, Urine 5.5 (5.0-8.0); Protein,Urine 1+ (Negative); RBC,Urine 1 /hpf (0-5); Specific Gravity,Urine 1.017 (1.001-1.035); Squamous Epithelial Cell,Urine 2 /hpf (0-4); Urobilinogen,Urine <2.0 mg/dL (<2.0); WBC,Urine 5 /hpf (0-5)
[2021-10-07 20:19] LABS: Creatinine,Urine Random 309.7 mg/dL
[2021-10-07] MEDS: DEXTROSE 5% IN WATER 1,000 ML with SODIUM BICARB (1 MEQ/ML) 150 ML IV SCH (21:10)
[2021-10-07] MEDS: ALPRAZolam 0.25 MG TAB PO SCH (21:24)
[2021-10-07] MEDS: MAGNESIUM SULFATE-D5W PMX 1 GM in DEXTROSE/WATER 1 100ML.BAG IVPB SCH (23:08)
[2021-10-08] MEDS: MAGNESIUM SULFATE-D5W PMX 1 GM in DEXTROSE/WATER 1 100ML.BAG IVPB SCH (00:34)
[2021-10-08] MEDS: SODIUM CHLORIDE 0.9% 1,000 ML IV SCH ×3 (03:31→15:15)
[2021-10-08] MEDS: DEXTROSE 5% IN WATER 1,000 ML with SODIUM BICARB (1 MEQ/ML) 150 ML IV SCH ×2 (06:34→21:03)
[2021-10-08] MEDS: ATORVASTATIN 10 MG TAB PO SCH (07:33)
[2021-10-08] MEDS: METOPROLOL SUCCINATE (ER) 25 MG TAB.ER.24H PO SCH (07:33)
[2021-10-08] MEDS: ASPIRIN 325 MG TAB PO SCH (07:33)
[2021-10-08] MEDS: ESCITALOPRAM 10 MG TAB PO SCH (07:33)
[2021-10-08 08:18] LABS: Basophils % (A) 1 %; Eosinophils # (A) 0.1 k/uL (0-0.7); Eosinophils % (A) 2 %; HCT 31.2 % (34.0-46.0); HGB 10.7 gm/dL (11.4-16.0); Lymphocytes # (A) 1.2 k/uL (1.0-4.8); Lymphocytes % (A) 23 %; MCH 32.9 pg (25.0-35.0); MCHC 34.3 g/dL (31.0-37.0); MCV 95.9 fL (80.0-100.0); Mean Platelet Volume 7.1; Monocytes # (A) 0.5 k/uL (0-1.0); Monocytes % (A) 9 %; Neutrophils # (A) 3.3 k/uL (1.3-7.7); Neutrophils % (A) 63 %; Platelet Count 266 k/uL (150-450); RBC 3.25 m/uL (3.80-5.40); RDW 12.6 % (11.5-15.5); WBC 5.2 k/uL (3.8-10.6)
[2021-10-08 09:16] LABS: Albumin 3.1 g/dL (3.5-5.0); Calcium 9.4 mg/dL (8.4-10.2); Magnesium 2.3 mg/dL (1.6-2.3); Potassium 2.9 mmol/L (3.5-5.1); Total Bilirubin 0.4 mg/dL (0.2-1.3); Total Protein 5.7 g/dL (6.3-8.2)
[2021-10-08] MEDS ORDERED: Potassium Replacement Protocol 1 EACH MISC MISCELLANE PRN (09:22)
[2021-10-08] MEDS: POTASSIUM CHLORIDE 10 MEQ in WATER FOR INJECTION 1 100ML.BAG IVPB SCH ×6 (09:31→15:57)
--- NOTE | 2021-10-08 13:04 | P.PN ---
Subjective Progress Note Date: 10/08/21 For acute kidney injury. Feeling better. Good urine output in the [facility] bag. Objective - Vital Signs Vital signs: Vital Signs Temp 97.5 F L 10/08/21 11:45 Pulse 72 10/08/21 11:45 Resp 18 10/08/21 11:45 BP 86/56 10/08/21 11:45 Pulse Ox 99 10/08/21 11:45 Intake & Output 10/07/21 10/08/21 10/08/21 18:59 06:59 18:59 Intake Total 1200 Output Total 1080 1 Balance 120 -1 Weight 44.906 kg 46.3 kg Intake: Intake, IV Titration 1200 Amount Dextrose 5% in Water 1, 1000 000 ml @ 100 mls/hr IV . [id number] DARRIN with Sodium Bicarb (1 Meq/ml) 150 ml Rx#:[id number] Magnesium Sulfate-D5w Pmx 200 1 gm In Dextrose/Water 1 100ml.bag @ 100 mls/hr IVPB Q1H DARRIN Rx#: [id number] Output: Urine 1080 Stool 1 Other: Voiding Method Indwelling Catheter Indwelling Catheter # Bowel Movements 1 - Exam No acute distress S1-S2 heard Lungs clear No edema - Labs CBC & Chem 7: 10/08/21 07:48 10/08/21 07:48 Labs: Abnormal Lab Results - Last 24 Hours (Table) 10/07/21 10/07/21 10/07/21 Range/Units 12:33 12:33 16:00 RBC (3.80-5.40) m/uL Hgb (11.4-16.0) gm/dL Hct (34.0-46.0) % D-Dimer 0.82 H (<0.60) mg/L FEU ABG pH (7.35-7.45) ABG pCO2 (35-45) mmHg ABG pO2 (83-108) mmHg ABG HCO3 (21-25) mmol/L ABG Total CO2 (19-24) mmol/L ABG O2 Saturation (94-97) % Potassium (3.5-5.1) mmol/L Chloride 111 H 116 H (98-107) mmol/L Carbon Dioxide 7 L* 7 L* (22-30) mmol/L BUN 69 H 69 H (7-17) mg/dL Creatinine 7.89 H* 7.10 H* (0.52-1.04) mg/dL Glucose 119 H 100 H (74-99) mg/dL Calcium 11.4 H (8.4-10.2) mg/dL Magnesium 1.5 L (1.6-2.3) mg/dL Total Protein (6.3-8.2) g/dL Albumin (3.5-5.0) g/dL Urine Appearance (Clear) Urine Protein (Negative) Urine Bacteria (None) /hpf Hyaline Casts (0-2) /lpf Urine Mucus (None) /hpf Ur Random Sodium (40-220) mmol/L 10/07/21 10/07/21 10/07/21 Range/Units 18:00 18:45 18:45 RBC (3.80-5.40) m/uL Hgb (11.4-16.0) gm/dL Hct (34.0-46.0) % D-Dimer (<0.60) mg/L FEU ABG pH 7.13 L* (7.35-7.45) ABG pCO2 21 L (35-45) mmHg ABG pO2 169 H (83-108) mmHg ABG HCO3 7 L* (21-25) mmol/L ABG Total CO2 8 L (19-24) mmol/L ABG O2 Saturation 99.5 H (94-97) % Potassium (3.5-5.1) mmol/L Chloride (98-107) mmol/L Carbon Dioxide (22-30) mmol/L BUN (7-17) mg/dL Creatinine (0.52-1.04) mg/dL Glucose (74-99) mg/dL Calcium (8.4-10.2) mg/dL Magnesium (1.6-2.3) mg/dL Total Protein (6.3-8.2) g/dL Albumin (3.5-5.0) g/dL Urine Appearance Cloudy H (Clear) Urine Protein 1+ H (Negative) Urine Bacteria Rare H (None) /hpf Hyaline Casts 38 H (0-2) /lpf Urine Mucus Occasional H (None) /hpf Ur Random Sodium <20 L (40-220) mmol/L 10/08/21 10/08/21 Range/Units 07:48 07:48 RBC 3.25 L (3.80-5.40) m/uL Hgb 10.7 L (11.4-16.0) gm/dL Hct 31.2 L (34.0-46.0) % D-Dimer (<0.60) mg/L FEU ABG pH (7.35-7.45) ABG pCO2 (35-45) mmHg ABG pO2 (83-108) mmHg ABG HCO3 (21-25) mmol/L ABG Total CO2 (19-24) mmol/L ABG O2 Saturation (94-97) % Potassium 2.9 L (3.5-5.1) mmol/L Chloride 115 H (98-107) mmol/L Carbon Dioxide 14 L (22-30) mmol/L BUN 52 H (7-17) mg/dL Creatinine 3.02 H (0.52-1.04) mg/dL Glucose 102 H (74-99) mg/dL Calcium (8.4-10.2) mg/dL Magnesium (1.6-2.3) mg/dL Total Protein 5.7 L (6.3-8.2) g/dL Albumin 3.1 L (3.5-5.0) g/dL Urine Appearance (Clear) Urine Protein (Negative) Urine Bacteria (None) /hpf Hyaline Casts (0-2) /lpf Urine Mucus (None) /hpf Ur Random Sodium (40-220) mmol/L Assessment and Plan Assessment: #1 acute kidney injury suspect hemodynamic ATN with low blood pressures and concomitant use of lisinopril/volume depletion. #2 hypotensive episodes secondary to volume depletion #3 hypertension on lisinopril currently hypotensive #4 anion gap and non-anion gap metabolic acidosis secondary to acute kidney injury and diarrhea Plan: #1 agree with holding lisinopril. #2 aggressive IV fluids, continue with sodium bicarbonate at 100 ML's an hour. #3 renal function improving. #4 no acute indication for renal replacement therapy at this time.
[2021-10-08] MEDS: LOPERAMIDE 2 MG CAP PO PRN (15:56)
[2021-10-08] MEDS: CHOLESTYRAMINE (WITH SUGAR) 4 GM PACKET PO SCH (17:48)
[2021-10-08] MEDS ORDERED: SODIUM CHLORIDE 0.9% 500 ML 500 ML IV ONE (21:13)
[2021-10-08] MEDS: ALPRAZolam 0.25 MG TAB PO SCH (23:35)
--- NOTE | 2021-10-09 02:19 | P.PN ---
Subjective Progress Note Date: 10/08/21 This is a 60-year-old female who was recently admitted with weakness and frequent diarrhea and is being closely monitored. Patient is also being closely monitored by nephrology for acute renal failure and maintained on IV fluids with sodium bicarb as well. Patient diarrhea continues and was tested for cdiff and was negative. Will add questran and imodium as needed. Potassium found to be low today and will repeat and continue with potassium protocol. Repeat magnesium ordered for am as well. Labs: WBC is 5.2, hemoglobin is 10.7, platelets are 266, sodium is 138, potassium 2.9, creatinine 3.02 Review of systems: Constitutional: No reports of fatigue, fever, or chills Cardiovascular: No reports of chest pain or palpitations Respiratory: No reports of shortness of breath or cough GI: No reports of nausea, vomiting, reports continued diarrhea : No reports of dysuria or retention Neurovascular: No reports of numbness or weakness All medications have been reviewed Active Medications Alprazolam (Alprazolam 0.25 Mg Tab) 0.25 mg PO HS [facility] Last Admin: 10/07/21 21:24 Dose: 0.25 mg Documented by: Aspirin (Aspirin 325 Mg Tab) 325 mg PO DAILY [facility] Last Admin: 10/08/21 07:33 Dose: 325 mg Documented by: Atorvastatin Calcium (Atorvastatin 10 Mg Tab) 10 mg PO DAILY [facility] Last Admin: 10/08/21 07:33 Dose: 10 mg Documented by: Escitalopram Oxalate (Escitalopram 10 Mg Tab) 10 mg PO DAILY [facility] Last Admin: 10/08/21 07:33 Dose: 10 mg Documented by: Sodium Bicarbonate 150 ml/ (Dextrose/Water) 1,150 mls @ 100 mls/hr IV .[id number] [facility] Last Admin: 10/08/21 06:34 Dose: 100 mls/hr Documented by: Potassium Chloride 10 meq/ IV (Solution) 100 mls @ 100 mls/hr IVPB Q1HR [facility]; Protocol Stop: 10/08/21 15:59 Last Admin: 10/08/21 14:56 Dose: 100 mls/hr Documented by: Metoprolol Succinate (Metoprolol Succinate (Er) 25 Mg Tab.Er.24h) 25 mg PO DAILY [facility] Last Admin: 10/08/21 07:33 Dose: 25 mg Documented by: Miscellaneous Information (Magnesium Replacement Protocol 1 Each Misc) 1 each MISCELLANE DAILY PRN; Protocol PRN Reason: Per Protocol Miscellaneous Information (Potassium Replacement Protocol 1 Each Misc) 1 each MISCELLANE DAILY PRN; Protocol PRN Reason: Per Protocol Miscellaneous Information (Potassium Replacement Protocol 1 Each Misc) 1 each MISCELLANE DAILY PRN; Protocol PRN Reason: Per Protocol Physical exam: Gen: This is 60-year-old female who is awake, alert and oriented 3, well- developed, well-nourished.. Temp is 97.5F, pulse is 82, respirations are 18, blood pressure is 94/55, oxygen saturation is 100% on 2 L via nasal cannula HEENT: Head is atraumatic, normocephalic. Pupils equal, round. Sclerae is anicteric. NECK: Supple. No JVD. No lymphadenopathy. No thyromegaly. LUNGS: Breath sounds are diminished at the bases with no wheezing or rhonchi noted. No intercostal retractions. HEART: S1, S2 are muffled ABDOMEN: Soft. Bowel sounds are present. No masses. No tenderness. EXTREMITIES: No pedal edema. No calf tenderness. NEUROLOGICAL: Alert and oriented 3, no focal deficits Assessment: Acute renal failure with acute tubular necrosis and prerenal renal factors secondary to possible dehydration Chest pain and neck pain for evaluation hypokalemia Severe dehydration and hypotension, hypovolemic shock, present on admission Severe diarrhea possibly secondary to short-bowel syndrome Elevated d-dimer Hypomagnesemia hypercalcemia possible secondary dehydration History of hypertension History of hyperlipidemia History of distended bowel and intestinal resection History of hysterectomy history bowel resection history of mitral valve repair 2005 Incomplete right bundle branch block on EKG Family history of problems with anesthesia family history of colon cancer severe protein calorie malnutrition with a BMI of 19.9 Full code Plan: Recommend to continue with current medications and management and symptomatic treatment. Cdiff testing was negative and will add questran BID and imodium as needed. POtassium low at 2.9 today and will replace and repeat am labs. Nephrology following closely and patient is maintained on IV fluids and sodium bicarb. Encouraged increase activity as tolerated. Due to multiple complex medical issues prognosis is guarded. Will Continue to monitor closely and re peat labs. Possible discharge in 24-48 hours. Objective - Vital Signs Vital signs: Vital Signs Temp 97.5 F L 10/08/21 07:35 Pulse 82 10/08/21 08:00 Resp 18 10/08/21 08:00 BP 94/55 10/08/21 07:35 Pulse Ox 100 10/08/21 07:35 Intake & Output 10/07/21 10/08/21 10/08/21 18:59 06:59 18:59 Intake Total 1200 Output Total 1080 1 Balance 120 -1 Weight 44.906 kg 46.3 kg Intake: Intake, IV Titration 1200 Amount Dextrose 5% in Water 1, 1000 000 ml @ 100 mls/hr IV . [id number] DARRIN with Sodium Bicarb (1 Meq/ml) 150 ml Rx#:[id number] Magnesium Sulfate-D5w Pmx 200 1 gm In Dextrose/Water 1 100ml.bag @ 100 mls/hr IVPB Q1H DARRIN Rx#: [id number] Output: Urine 1080 Stool 1 Other: Voiding Method Indwelling Catheter Indwelling Catheter # Bowel Movements 1 - Labs CBC & Chem 7: 10/08/21 07:48 10/08/21 07:48 Labs: Abnormal Lab Results - Last 24 Hours (Table) 10/07/21 10/07/21 10/07/21 Range/Units 12:33 12:33 16:00 RBC (3.80-5.40) m/uL Hgb (11.4-16.0) gm/dL Hct (34.0-46.0) % D-Dimer 0.82 H (<0.60) mg/L FEU ABG pH (7.35-7.45) ABG pCO2 (35-45) mmHg ABG pO2 (83-108) mmHg ABG HCO3 (21-25) mmol/L ABG Total CO2 (19-24) mmol/L ABG O2 Saturation (94-97) % Potassium (3.5-5.1) mmol/L Chloride 111 H 116 H (98-107) mmol/L Carbon Dioxide 7 L* 7 L* (22-30) mmol/L BUN 69 H 69 H (7-17) mg/dL Creatinine 7.89 H* 7.10 H* (0.52-1.04) mg/dL Glucose 119 H 100 H (74-99) mg/dL Calcium 11.4 H (8.4-10.2) mg/dL Magnesium 1.5 L (1.6-2.3) mg/dL Total Protein (6.3-8.2) g/dL Albumin (3.5-5.0) g/dL Urine Appearance (Clear) Urine Protein (Negative) Urine Bacteria (None) /hpf Hyaline Casts (0-2) /lpf Urine Mucus (None) /hpf Ur Random Sodium (40-220) mmol/L 10/07/21 10/07/21 10/07/21 Range/Units 18:00 18:45 18:45 RBC (3.80-5.40) m/uL Hgb (11.4-16.0) gm/dL Hct (34.0-46.0) % D-Dimer (<0.60) mg/L FEU ABG pH 7.13 L* (7.35-7.45) ABG pCO2 21 L (35-45) mmHg ABG pO2 169 H (83-108) mmHg ABG HCO3 7 L* (21-25) mmol/L ABG Total CO2 8 L (19-24) mmol/L ABG O2 Saturation 99.5 H (94-97) % Potassium (3.5-5.1) mmol/L Chloride (98-107) mmol/L Carbon Dioxide (22-30) mmol/L BUN (7-17) mg/dL Creatinine (0.52-1.04) mg/dL Glucose (74-99) mg/dL Calcium (8.4-10.2) mg/dL Magnesium (1.6-2.3) mg/dL Total Protein (6.3-8.2) g/dL Albumin (3.5-5.0) g/dL Urine Appearance Cloudy H (Clear) Urine Protein 1+ H (Negative) Urine Bacteria Rare H (None) /hpf Hyaline Casts 38 H (0-2) /lpf Urine Mucus Occasional H (None) /hpf Ur Random Sodium <20 L (40-220) mmol/L 10/08/21 10/08/21 Range/Units 07:48 07:48 RBC 3.25 L (3.80-5.40) m/uL Hgb 10.7 L (11.4-16.0) gm/dL Hct 31.2 L (34.0-46.0) % D-Dimer (<0.60) mg/L FEU ABG pH (7.35-7.45) ABG pCO2 (35-45) mmHg ABG pO2 (83-108) mmHg ABG HCO3 (21-25) mmol/L ABG Total CO2 (19-24) mmol/L ABG O2 Saturation (94-97) % Potassium 2.9 L (3.5-5.1) mmol/L Chloride 115 H (98-107) mmol/L Carbon Dioxide 14 L (22-30) mmol/L BUN 52 H (7-17) mg/dL Creatinine 3.02 H (0.52-1.04) mg/dL Glucose 102 H (74-99) mg/dL Calcium (8.4-10.2) mg/dL Magnesium (1.6-2.3) mg/dL Total Protein 5.7 L (6.3-8.2) g/dL Albumin 3.1 L (3.5-5.0) g/dL Urine Appearance (Clear) Urine Protein (Negative) Urine Bacteria (None) /hpf Hyaline Casts (0-2) /lpf Urine Mucus (None) /hpf Ur Random Sodium (40-220) mmol/L
[2021-10-09] MEDS: DEXTROSE 5% IN WATER 1,000 ML with SODIUM BICARB (1 MEQ/ML) 150 ML IV SCH (06:25)
[2021-10-09] MEDS: LOPERAMIDE 2 MG CAP PO PRN (09:11)
[2021-10-09] MEDS: ASPIRIN 325 MG TAB PO SCH (09:11)
[2021-10-09] MEDS: METOPROLOL SUCCINATE (ER) 25 MG TAB.ER.24H PO SCH (09:11)
[2021-10-09] MEDS: CHOLESTYRAMINE (WITH SUGAR) 4 GM PACKET PO SCH ×2 (09:11→17:12)
[2021-10-09] MEDS: ATORVASTATIN 10 MG TAB PO SCH (09:11)
--- NOTE | 2021-10-09 09:24 | P.PN ---
Subjective Patient is seen in follow-up for acute kidney injury. Renal function improving. Morning labs pending. Complaining of diarrhea. Oral intake fair. Vital signs are stable. General: The patient appeared well nourished and normally developed. HEENT: Head exam is unremarkable. LUNGS: Breath sounds decreased. HEART: Rate and Rhythm are regular. ABDOMEN: Soft, no distention. EXTREMITITES: No edema. Objective - Vital Signs Vital signs: Vital Signs Temp 98.3 F 10/09/21 08:10 Pulse 83 10/09/21 08:10 Resp 17 10/09/21 08:10 BP 93/60 10/09/21 08:10 Pulse Ox 100 10/09/21 08:10 Intake & Output 10/08/21 10/09/21 10/09/21 18:59 06:59 18:59 Intake Total 240 Output Total 626 2 Balance -386 -2 Weight 45.1 kg Intake: Oral 240 Output: Urine 625 Stool 1 2 Other: Voiding Method Indwelling Catheter Indwelling Catheter # Bowel Movements 1 - Labs CBC & Chem 7: 10/08/21 07:48 10/08/21 07:48 Assessment and Plan Plan: Assessment: 1. Acute kidney injury secondary to ATN secondary to hypovolemia and hypotensio n. Creatinine 3.02 yesterday. Creatinine in June 2020 was 1.1. 2. Metabolic acidosis secondary to acute kidney injury and GI losses. On bicarb drip. 3. Hypokalemia from poor intake and intracellular shifting from IV bicarb. 4. Benign hypertension. Blood pressure currently on the lower side. 5. Diarrhea. C. diff negative. Plan: Maintain bicarb drip. Potassium was replaced. Follow-up morning labs. Avoid nephrotoxins. Consider GI consult.
[2021-10-09 09:38] LABS: Calcium 8.5 mg/dL (8.4-10.2); Magnesium 1.5 mg/dL (1.6-2.3)
[2021-10-09] MEDS ORDERED: Potassium Replacement Protocol 1 EACH MISC MISCELLANE PRN ×2 (10:00→16:53)
[2021-10-09] MEDS ORDERED: Magnesium Replacement Protocol 1 EACH MISC MISCELLANE PRN (10:01)
[2021-10-09] MEDS: MAGNESIUM SULFATE-D5W PMX 1 GM in DEXTROSE/WATER 1 100ML.BAG IVPB SCH ×4 (10:29→16:55)
[2021-10-09] MEDS: ESCITALOPRAM 10 MG TAB PO SCH (10:29)
[2021-10-09] MEDS: POTASSIUM CHLORIDE ER 20 MEQ TAB.ER PO SCH ×2 (10:29→16:54)
[2021-10-09] MEDS: PROCHLORPERAZINE INJ 10 MG/2 ML VIAL IVP PRN ×2 (12:11→17:43)
--- NOTE | 2021-10-09 14:13 | P.PN ---
Subjective Progress Note Date: 10/09/21 This is a 60-year-old female who was recently admitted with weakness and frequent diarrhea and is being closely monitored. Patient is also being closely monitored by nephrology for acute renal failure and maintained on IV fluids with sodium bicarb as well. Patient diarrhea continues and was tested for cdiff and was negative. Will add questran and imodium as needed. Potassium found to be low today and will repeat and continue with potassium protocol. Repeat magnesium ordered for am as well. 10/09/2021 She is seen and evaluated and follow-up this morning continues with diarrhea with no improvement. Patient states she has been having loose stool approximately every 2 hours with no relief from the Imodium or Questran. Patient also having some mild nausea this morning and will add Compazine. Patient's potassium repeat after protocol replacement is 3.0 today and will continue with replacement along with magnesium at 1.5 and will replace and repeat labs. Nephrology also following and kidney function significantly improved and current creatinine is 1.16. Patient denies any chest pain or shortness of breath. Patient is afebrile. Patient is tolerating diet. Patient believes her nausea is from the Questran packet. Labs: Sodium is 138, potassium is 3.0, BUN is 28, creatinine is 1.16, magnesium is 1.5 Review of systems: Constitutional: No reports of fatigue, fever, or chills Cardiovascular: No reports of chest pain or palpitations Respiratory: No reports of shortness of breath or cough GI: reports of nausea, no reports of vomiting, reports continued diarrhea no improvement : No reports of dysuria or retention Neurovascular: No reports of numbness or weakness All medications have been reviewed Active Medications Alprazolam (Alprazolam 0.25 Mg Tab) 0.25 mg PO HS [facility] Last Admin: 10/08/21 23:35 Dose: 0.25 mg Documented by: Aspirin (Aspirin 325 Mg Tab) 325 mg PO DAILY [facility] Last Admin: 10/09/21 09:11 Dose: 325 mg Documented by: Atorvastatin Calcium (Atorvastatin 10 Mg Tab) 10 mg PO DAILY [facility] Last Admin: 10/09/21 09:11 Dose: 10 mg Documented by: Cholestyramine Resin (Cholestyramine (With Sugar) 4 Gm Packet) 4 gm PO BID@1000,1800 [facility] Last Admin: 10/09/21 09:11 Dose: 4 gm Documented by: Escitalopram Oxalate (Escitalopram 10 Mg Tab) 10 mg PO DAILY [facility] Last Admin: 10/09/21 10:29 Dose: 10 mg Documented by: Sodium Bicarbonate 150 ml/ (Dextrose/Water) 1,150 mls @ 100 mls/hr IV .[id number] [facility] Last Admin: 10/09/21 06:25 Dose: 100 mls/hr Documented by: Loperamide HCl (Loperamide 2 Mg Cap) 2 mg PO QID PRN PRN Reason: Diarrhea Last Admin: 10/09/21 09:11 Dose: 2 mg Documented by: Metoprolol Succinate (Metoprolol Succinate (Er) 25 Mg Tab.Er.24h) 25 mg PO DAILY [facility] Last Admin: 10/09/21 09:11 Dose: 25 mg Documented by: Miscellaneous Information (Magnesium Replacement Protocol 1 Each Misc) 1 each MISCELLANE DAILY PRN; Protocol PRN Reason: Per Protocol Miscellaneous Information (Potassium Replacement Protocol 1 Each Misc) 1 each MISCELLANE DAILY PRN; Protocol PRN Reason: Per Protocol Miscellaneous Information (Potassium Replacement Protocol 1 Each Misc) 1 each MISCELLANE DAILY PRN; Protocol PRN Reason: Per Protocol Miscellaneous Information (Magnesium Replacement Protocol 1 Each Misc) 1 each M ISCELLANE DAILY PRN; Protocol PRN Reason: Per Protocol Octreotide Acetate (Octreotide 100 Mcg/Ml Inj) 200 mcg IVP Q8HR [facility] Prochlorperazine Edisylate (Prochlorperazine Inj 10 Mg/2 Ml Vial) 5 mg IVP Q4HR PRN PRN Reason: Nausea And Vomiting Last Admin: 10/09/21 12:11 Dose: 5 mg Documented by: Physical exam: Gen: This is 60-year-old female who is awake, alert and oriented 3, well-develo ped, well-nourished.. Temp is 98.3 F, pulse is 83, respirations are 17, blood pressure is 93/60, oxygen saturation is 100% on room air HEENT: Head is atraumatic, normocephalic. Pupils equal, round. Sclerae is anicteric. NECK: Supple. No JVD. No lymphadenopathy. No thyromegaly. LUNGS: Breath sounds are diminished at the bases with no wheezing or rhonchi noted. No intercostal retractions. HEART: S1, S2 are muffled ABDOMEN: Soft. Bowel sounds are present. No masses. No tenderness. EXTREMITIES: No pedal edema. No calf tenderness. NEUROLOGICAL: Alert and oriented 3, no focal deficits Assessment: Acute renal failure with acute tubular necrosis and prerenal renal factors secondary to possible dehydration Chest pain and neck pain for evaluation hypokalemia Severe dehydration and hypotension, hypovolemic shock, present on admission Severe diarrhea possibly secondary to short-bowel syndrome Elevated d-dimer Hypomagnesemia hypercalcemia possible secondary dehydration History of hypertension History of hyperlipidemia History of distended bowel and intestinal resection History of hysterectomy history bowel resection history of mitral valve repair 2005 Incomplete right bundle branch block on EKG Family history of problems with anesthesia family history of colon cancer severe protein calorie malnutrition with a BMI of 19.9 Full code Plan: Recommend to continue with current medications and management and symptomatic treatment. Was started on Questran and Imodium although having some nausea with the Questran packet and denies any improvement in amount of bowel movements she is having. Patient states she is going approximately every 2 hours with continued loose stool. Will add octreotide for the continued diarrhea. Patient states she has never followed with GI in the outpatient setting and will provide resources with an appointment once stabilized and discharged. Kidney function significantly improved and nephrology following closely. She is maintained on dextrose in water with sodium bicarbonate. Repeat potassium today is 3.0 and will continue with protocol replacement along with magnesium at 1.5 and will repeat labs. Encouraged oral intake and continue with renal diet. Encouraged increase activity as tolerated. Due to multiple complex medical issues, prognosis is guarded. Will Continue to monitor closely and repeat labs. Possible discharge in 24-48 hours. Objective - Vital Signs Vital signs: Vital Signs Temp 98.3 F 10/09/21 08:10 Pulse 83 10/09/21 08:10 Resp 17 10/09/21 08:10 BP 93/60 10/09/21 08:10 Pulse Ox 100 10/09/21 08:10 Intake & Output 10/08/21 10/09/21 10/09/21 18:59 06:59 18:59 Intake Total 240 Output Total 626 2 Balance -386 -2 Weight 45.1 kg Intake: Oral 240 Output: Urine 625 Stool 1 2 Other: Voiding Method Indwelling Catheter Indwelling Catheter # Bowel Movements 1 - Labs CBC & Chem 7: 10/08/21 07:48 10/09/21 07:47
[2021-10-09] MEDS ORDERED: POTASSIUM CHLORIDE ER 20 MEQ TAB.ER PO STA (14:48)
[2021-10-09] MEDS: POTASSIUM CHLORIDE 10 MEQ in WATER FOR INJECTION 1 100ML.BAG IVPB SCH ×4 (17:17→22:41)
[2021-10-09] MEDS: SODIUM CHLORIDE 0.9% 1,000 ML IV SCH (17:17)
[2021-10-09] MEDS: OCTREOTIDE 100 MCG/ML INJ IVP SCH (17:17)
[2021-10-09] MEDS: ALPRAZolam 0.25 MG TAB PO SCH (22:42)
[2021-10-10] MEDS: OCTREOTIDE 100 MCG/ML INJ IVP SCH ×3 (00:05→16:46)
[2021-10-10] MEDS: SODIUM CHLORIDE 0.9% 1,000 ML IV SCH ×2 (06:19→18:10)
[2021-10-10 08:37] LABS: Calcium 8.2 mg/dL (8.4-10.2); Magnesium 1.8 mg/dL (1.6-2.3); Potassium 3.9 mmol/L (3.5-5.1)
--- NOTE | 2021-10-10 09:38 | P.PN ---
Subjective Patient is seen in follow-up for acute kidney injury. Renal function improved. Still having diarrhea. Oral intake good. No vomiting. Had dry heaving yesterday. Vital signs stable. HEENT: Head exam is unremarkable. LUNGS: Breath sounds decreased. HEART: Rate and Rhythm are regular. ABDOMEN: Soft, no distention. EXTREMITITES: No edema. Objective - Vital Signs Vital signs: Vital Signs Temp 97.8 F 10/10/21 08:50 Pulse 71 10/10/21 08:50 Resp 18 10/10/21 08:50 BP 99/54 10/10/21 08:50 Pulse Ox 99 10/10/21 08:50 Intake & Output 10/09/21 10/10/21 10/10/21 18:59 06:59 18:59 Intake Total 965 420 Output Total 700 5 Balance 265 -5 420 Intake: Intake, IV Titration 725 Amount Magnesium Sulfate-D5w Pmx 100 1 gm In Dextrose/Water 1 100ml.bag @ 100 mls/hr IVPB Q1H REPLACED BY [facility] Rx#: [id number] Magnesium Sulfate-D5w Pmx 100 1 gm In Dextrose/Water 1 100ml.bag @ 100 mls/hr IVPB Q1H [facility] Rx#: [id number] Sodium Chloride 0.9% 1, 525 000 ml @ 75 mls/hr IV . [id number] REPLACED BY [facility] Rx#:[id number] Oral 240 420 Output: Urine 700 Stool 5 Other: Voiding Method Indwelling Catheter Indwelling Catheter # Bowel Movements 3 - Labs CBC & Chem 7: 10/08/21 07:48 10/10/21 07:14 Labs: Abnormal Lab Results - Last 24 Hours (Table) 10/09/21 10/10/21 Range/Units 07:47 07:14 Potassium 3.0 L (3.5-5.1) mmol/L BUN 28 H 19 H (7-17) mg/dL Creatinine 1.16 H 1.16 H (0.52-1.04) mg/dL Glucose 119 H 121 H (74-99) mg/dL Calcium 8.2 L (8.4-10.2) mg/dL Magnesium 1.5 L (1.6-2.3) mg/dL Assessment and Plan Plan: Assessment: 1. Acute kidney injury secondary to ATN secondary to hypovolemia and hypotension. Improved. Creatinine 1.16 today. 2. Metabolic acidosis secondary to acute kidney injury and GI losses. S/p bicarb drip. Resolved. 3. Hypokalemia from poor intake and intracellular shifting from IV bicarb. Replaced. Better. 4. Benign hypertension. Blood pressure on the lower side. 5. Diarrhea. C. diff negative. Plan: Maintain normal saline. Avoid nephrotoxins.
[2021-10-10] MEDS: CHOLESTYRAMINE (WITH SUGAR) 4 GM PACKET PO SCH ×2 (10:33→16:16)
[2021-10-10] MEDS: METOPROLOL SUCCINATE (ER) 25 MG TAB.ER.24H PO SCH (10:44)
[2021-10-10] MEDS: ESCITALOPRAM 10 MG TAB PO SCH (10:44)
[2021-10-10] MEDS: ATORVASTATIN 10 MG TAB PO SCH (10:44)
[2021-10-10] MEDS: ASPIRIN 325 MG TAB PO SCH (10:44)
--- NOTE | 2021-10-10 15:36 | P.PN ---
Subjective Progress Note Date: 10/10/21 This is a 60-year-old female who was recently admitted with weakness and frequent diarrhea and is being closely monitored. Patient is also being closely monitored by nephrology for acute renal failure and maintained on IV fluids with sodium bicarb as well. Patient diarrhea continues and was tested for cdiff and was negative. Will add questran and imodium as needed. Potassium found to be low today and will repeat and continue with potassium protocol. Repeat magnesium ordered for am as well. 10/09/2021 She is seen and evaluated and follow-up this morning continues with diarrhea with no improvement. Patient states she has been having loose stool approximately every 2 hours with no relief from the Imodium or Questran. Patient also having some mild nausea this morning and will add Compazine. Patient's potassium repeat after protocol replacement is 3.0 today and will continue with replacement along with magnesium at 1.5 and will replace and repeat labs. Nephrology also following and kidney function significantly improved and current creatinine is 1.16. Patient denies any chest pain or shortness of breath. Patient is afebrile. Patient is tolerating diet. Patient believes her nausea is from the Questran packet. 10/10/2021 Patient is seen this morning and being closely monitored. Kidney functions improving and patient is maintained on IV normal saline. Sodium bicarb drip has been discontinued. Patient continues with diarrhea approximately every two hours. Patient states the consistency of the stool is somewhat less liquid. Patient has been refusing questran as it makes her nauseous. Patient continues with indwelling loja catheter and will discontinue and monitor for retention. Encouraged oral intake and increased activity as tolerated. Labs: Sodium is 137, potassium is 3.9, BUN is 19, creatinine is 1.16, calcium is 8.2, magnesium is 1.8 Review of systems: Constitutional: No reports of fatigue, fever, or chills Cardiovascular: No reports of chest pain or palpitations Respiratory: No reports of shortness of breath or cough GI: reports of continued intermittent nausea, no reports of vomiting, reports continued diarrhea : No reports of dysuria or retention Neurovascular: No reports of numbness or weakness All medications have been reviewed Active Medications Alprazolam (Alprazolam 0.25 Mg Tab) 0.25 mg PO HS [facility] Last Admin: 10/09/21 22:42 Dose: 0.25 mg Documented by: Aspirin (Aspirin 325 Mg Tab) 325 mg PO DAILY [facility] Last Admin: 10/10/21 10:44 Dose: 325 mg Documented by: Atorvastatin Calcium (Atorvastatin 10 Mg Tab) 10 mg PO DAILY [facility] Last Admin: 10/10/21 10:44 Dose: 10 mg Documented by: Cholestyramine Resin (Cholestyramine (With Sugar) 4 Gm Packet) 4 gm PO BID@1000,1800 [facility] Last Admin: 10/10/21 10:33 Dose: Not Given Documented by: Escitalopram Oxalate (Escitalopram 10 Mg Tab) 10 mg PO DAILY [facility] Last Admin: 10/10/21 10:44 Dose: 10 mg Documented by: Sodium Chloride (Saline 0.9%) 1,000 mls @ 75 mls/hr IV .[id number] [facility] Last Admin: 10/10/21 06:19 Dose: 75 mls/hr Documented by: Loperamide HCl (Loperamide 2 Mg Cap) 2 mg PO QID PRN PRN Reason: Diarrhea Last Admin: 10/09/21 09:11 Dose: 2 mg Documented by: Metoprolol Succinate (Metoprolol Succinate (Er) 25 Mg Tab.Er.24h) 25 mg PO DAILY [facility] Last Admin: 10/10/21 10:44 Dose: 25 mg Documented by: Miscellaneous Information (Magnesium Replacement Protocol 1 Each Misc) 1 each MISCELLANE DAILY PRN; Protocol PRN Reason: Per Protocol Miscellaneous Information (Potassium Replacement Protocol 1 Each Misc) 1 each MISCELLANE DAILY PRN; Protocol PRN Reason: Per Protocol Miscellaneous Information (Potassium Replacement Protocol 1 Each Misc) 1 each MISCELLANE DAILY PRN; Protocol PRN Reason: Per Protocol Miscellaneous Information (Magnesium Replacement Protocol 1 Each Misc) 1 each MISCELLANE DAILY PRN; Protocol PRN Reason: Per Protocol Miscellaneous Information (Potassium Replacement Protocol 1 Each Misc) 1 each MISCELLANE DAILY PRN; Protocol PRN Reason: Per Protocol Octreotide Acetate (Octreotide 100 Mcg/Ml Inj) 200 mcg IVP Q8HR [facility] Last Admin: 10/10/21 10:44 Dose: 200 mcg Documented by: Prochlorperazine Edisylate (Prochlorperazine Inj 10 Mg/2 Ml Vial) 5 mg IVP Q4HR PRN PRN Reason: Nausea And Vomiting Last Admin: 10/09/21 17:43 Dose: 5 mg Documented by: Physical exam: Gen: This is 60-year-old female who is awake, alert and oriented 3, well- developed, well-nourished.. Temp is 97.8 F, pulse is 71, respirations are 18, blood pressure is 99/54, oxygen saturation is 100% on room air HEENT: Head is atraumatic, normocephalic. Pupils equal, round. Sclerae is anicteric. NECK: Supple. No JVD. No lymphadenopathy. No thyromegaly. LUNGS: Breath sounds are diminished at the bases with no wheezing or rhonchi noted. No intercostal retractions. HEART: S1, S2 are muffled ABDOMEN: Soft. Bowel sounds are present. No masses. No tenderness. EXTREMITIES: No pedal edema. No calf tenderness. NEUROLOGICAL: Alert and oriented 3, no focal deficits Assessment: Acute renal failure with acute tubular necrosis and prerenal renal factors secondary to possible dehydration Chest pain and neck pain for evaluation hypokalemia, improved Severe dehydration and hypotension, hypovolemic shock, present on admission Severe diarrhea possibly secondary to short-bowel syndrome Elevated d-dimer Hypomagnesemia, improved hypercalcemia possible secondary dehydration History of hypertension, currently hypotensive History of hyperlipidemia History of distended bowel and intestinal resection History of hysterectomy history bowel resection history of mitral valve repair 2005 Incomplete right bundle branch block on EKG Family history of problems with anesthesia family history of colon cancer severe protein calorie malnutrition with a BMI of 19.9 Full code Plan: Recommend to continue with current medications and management and symptomatic treatment. Patient continues with diarrhea and has been refusing questran as it makes her extremely nauseated. Patient has also been maintained on Octreotide and will continue for now. Nephrology following and maintained on IV normal saline showing significant renal function improvement. Patient did have indwelling loja catheter for close I & O monitoring and will discontinue and monitor for retention. Will consult GI in am as we have coverage for GI this week starting Monday. Patient states she has never followed with GI in the outpatient setting. Will also consult dietitian for short gut dietary recommendations. Encouraged oral intake and continue with renal diet. Encouraged increase activity as tolerated. Due to multiple complex medical issues, prognosis is guarded. Will Continue to monitor closely and repeat labs. Possible discharge in 24-48 hours. Objective - Vital Signs Vital signs: Vital Signs Temp 98.0 F 10/10/21 04:00 Pulse 69 10/10/21 04:00 Resp 18 10/10/21 04:00 BP 88/52 10/10/21 04:00 Pulse Ox 100 10/10/21 04:00 Intake & Output 10/09/21 10/10/21 10/10/21 18:59 06:59 18:59 Intake Total 965 Output Total 700 5 Balance 265 -5 Intake: Intake, IV Titration 725 Amount Magnesium Sulfate-D5w Pmx 100 1 gm In Dextrose/Water 1 100ml.bag @ 100 mls/hr IVPB Q1H [facility] Rx#: [id number] Magnesium Sulfate-D5w Pmx 100 1 gm In Dextrose/Water 1 100ml.bag @ 100 mls/hr IVPB Q1H [facility] Rx#: [id number] Sodium Chloride 0.9% 1, 525 000 ml @ 75 mls/hr IV . [id number] [facility] Rx#:[id number] Oral 240 Output: Urine 700 Stool 5 Other: Voiding Method Indwelling Catheter Indwelling Catheter # Bowel Movements 3 - Labs CBC & Chem 7: 10/08/21 07:48 10/10/21 07:14 Labs: Abnormal Lab Results - Last 24 Hours (Table) 10/09/21 Range/Units 07:47 Potassium 3.0 L (3.5-5.1) mmol/L BUN 28 H (7-17) mg/dL Creatinine 1.16 H (0.52-1.04) mg/dL Glucose 119 H (74-99) mg/dL Magnesium 1.5 L (1.6-2.3) mg/dL
[2021-10-11] MEDS: ALPRAZolam 0.25 MG TAB PO SCH ×2 (00:32→23:21)
[2021-10-11] MEDS: OCTREOTIDE 100 MCG/ML INJ IVP SCH ×3 (00:32→16:13)
[2021-10-11] MEDS: SODIUM CHLORIDE 0.9% 1,000 ML IV SCH ×2 (03:50→20:09)
[2021-10-11 07:24] LABS: Potassium 3.2 mmol/L (3.5-5.1)
[2021-10-11 08:41] LABS: Magnesium 1.6 mg/dL (1.6-2.3)
[2021-10-11] MEDS: ATORVASTATIN 10 MG TAB PO SCH (09:31)
[2021-10-11] MEDS: ASPIRIN 325 MG TAB PO SCH (09:31)
[2021-10-11] MEDS: METOPROLOL SUCCINATE (ER) 25 MG TAB.ER.24H PO SCH (09:31)
[2021-10-11] MEDS: ESCITALOPRAM 10 MG TAB PO SCH (09:31)
[2021-10-11] MEDS: CHOLESTYRAMINE (WITH SUGAR) 4 GM PACKET PO SCH ×2 (09:46→16:13)
--- NOTE | 2021-10-11 10:55 | P.CONS ---
History of Present Illness - Reason for Consult Consult date: 10/11/21 Diarrhea Requesting physician: Francisco Javier Malone - Chief Complaint chronic diarrhea - History of Present Illness This is a 60-year-old white female who presented to the emergency department on with complaints of shortness of breath. The patient had been experiencing exertional dyspnea with lightheadedness and acid reflux. The patient was found to have acute renal failure and was admitted to the hospital. [facility] is following patient closely. The patient also is with complaints of recurrent chronic diarrhea therefore gastroenterology was consulted. The pat artem states she had a hysterectomy in 2005 and one week following she had a twisted bowel with obstruction and underwent a bowel resection which she beleives 18 inches was removed. Since that time she has had chronic diarrhea. Patient states over the last 1-2 years she has loose watery bowel movements which can be explosive at times up to every 2 hours. She denies any new medications. She states that they are yellow/orange and oily. Patient denies taking any antidiarrheals for her chronic diarrhea. States she reports 8-12 hours a day and drinks protein milk and has a poor diet due to being afraid she will have to go to the bathroom more often. She had a colonoscopy in [address] Bull which showed scattered diverticulosis. In April 2019 she underwent EGD and colonoscopy for frequent diarrhea and acid reflux. EGD showed antral gastritis and mild esophagitis. Colonoscopy showed a normal colon. She states that she has not seen a private duty nurse in the past regarding her diarrhea. Denies any abdominal pain but states she sometimes gets cramping with her diarrhea. C. difficile toxin negative. On admission WBC 8.0 hemoglobin 13.3 sodium 138 potassium 4.0 total bilirubin 0.4 AST 16 ALT 13 alk phosphatase 87. She was started on octreotide 200 g every 8 hours, Imodium as needed and Questran. However the patient has been refusing her Questran due to some nausea. had a CT of the abdomen and pelvis that showed some fluid in the proximal colon that could reflect product of diarrhea and her mild uncomplicated colitis. Review of Systems REVIEW OF SYSTEMS: CARDIOPULMONARY: No chest pain or shortness of breath. Gastrointestinal: No abdominal pain. No nausea or vomiting. No hematemesis, coffee-ground emesis. No rectal bleeding, or melena. Frequent diarrhea. GENITOURINARY: No dysuria or hematuria. MUSCULOSKELETAL: Reports normal range of motion., Joint pain. SKIN: No rashes. No jaundice. ENDOCRINE: No chills, fevers. No excessive weight gain or loss. No polydipsia or polyuria. PSYCHIATRIC: Unremarkable. NEUROLOGY: No change in mental status. Denies dizziness, headache. ENT: Vision unremarkable. CONSTITUTIONAL: No recent weight loss. No fever, chills, night sweats. Past Medical History Past Medical History: Hyperlipidemia, Hypertension Additional Past Medical History / Comment(s): MOTHER HAS COLON CA. POS WATERY LOOSE STOOLS SINCE 04/2017; HX "TWISTED BOWeL, AFTER HYSTERECTOMY 2004." History of Any Multi-Drug Resistant Organisms: None Reported Past Surgical History: Appendectomy, Bowel Resection, Hysterectomy, Orthopedic Surgery Additional Past Surgical History / Comment(s): Mitral Valve Repair 2005. JAYANT ANKLE LIGAMENT REPAIR; RT KNEE MENISCUS; RT SHOULDER SURG; JAYANT ELBOW TENDINITIS SURG. JAYANT CATARACTS. Past Anesthesia/Blood Transfusion Reactions: Previous Problems w/ Anesthesia, Family History of Problems w/ Anesthesia, Postoperative Nausea & Vomiting (PONV) Additional Past Anesthesia/Blood Transfusion Reaction / Comm: MOTHER HAD PONV., low blood pressures after anesthesia Past Psychological History: No Psychological Hx Reported, Anxiety Smoking Status: Never smoker Past Alcohol Use History: Rare Past Drug Use History: None Reported - Past Family History Mother Family Medical History: Cancer Additional Family Medical History / Comment(s): colon cancer Medications and Allergies Home Medications Medication Instructions Recorded Confirmed Type Aspirin 325 mg PO DAILY 09/25/14 10/07/21 History Lisinopril [Prinivil] 10 mg PO DAILY 09/25/14 10/07/21 History Metoprolol Succinate (ER) [Toprol 25 mg PO DAILY 07/10/17 10/07/21 History Xl] Multivit with Calcium,Iron,Min 1 each PO DAILY 07/10/17 10/07/21 History [Women's Multivitamin] ALPRAZolam [Xanax] 0.25 mg PO HS 04/24/19 10/07/21 History Escitalopram [Lexapro] 10 mg PO DAILY 04/24/19 10/07/21 History Atorvastatin [Lipitor] 10 mg PO DAILY 10/07/21 10/07/21 History Allergies Allergy/AdvReac Type Severity Reaction Status Date / Time latex Allergy Rash/Hives Verified 10/07/21 14:06 Penicillins Allergy Rash/Hives Verified 10/07/21 14:06 acetaminophen [From Vicodin] AdvReac Confusion Verified 10/07/21 14:06 codeine AdvReac Confusion Verified 10/07/21 14:06 hydrocodone bitartrate AdvReac Confusion, Verified 10/07/21 14:06 [From Vicodin] ELEV HR, RASH Physical Exam Vitals: Vital Signs Temp Pulse Resp BP Pulse Ox 10/11/21 04:00 98.1 F 65 16 99/57 97 10/11/21 02:00 68 17 10/10/21 23:50 98.0 F 68 17 107/66 98 10/10/21 20:00 97.7 F 58 L 17 98/62 98 10/10/21 16:45 98.1 F 67 18 95/51 97 10/10/21 14:00 18 10/10/21 12:20 98.7 F 69 18 96/60 98 10/10/21 08:50 97.8 F 71 18 99/54 99 Intake and Output 10/10/21 10/11/21 10/11/21 22:59 06:59 14:59 Intake Total 360 240 Output Total 450 Balance 360 -450 240 Intake: Oral 360 240 Output: Urine 450 Other: Voiding Method Indwelling Catheter Indwelling Catheter # Bowel Movements 1 2 Weight 47 kg General appearance: The patient is alert, oriented, appears in no acute distress. HET: Head is normocephalic and atraumatic. Conjunctiva pink. Sclera anicteric. Neck: Supple without lymphadenopathy. Trachea midline. Heart: S1 S2. Regular rate and rhythm. Lungs: Clear to auscultation. Abdomen: Soft, nontender, nondistended with bowel sounds. No guarding or rigidity. Skin: No rashes. No jaundice. Extremities: Normal skin color and turgor. No pedal edema. Neurological: No focal deficits. Alert and oriented x3. Results CBC & Chem 7: 10/08/21 07:48 10/11/21 05:29 Labs: Abnormal Lab Results - Last 24 Hours (Table) 10/10/21 10/11/21 Range/Units 07:14 05:29 Potassium 3.2 L (3.5-5.1) mmol/L Chloride 109 H (98-107) mmol/L BUN 19 H (7-17) mg/dL Creatinine 1.16 H (0.52-1.04) mg/dL Glucose 121 H 112 H (74-99) mg/dL Calcium 8.2 L 8.0 L (8.4-10.2) mg/dL CT scan - abdomen: report reviewed (CT abdomen and pelvis reports no renal stones or hydronephrosis seen bilaterally. No abnormal fluid in the proximal colon could reflect product of diarrhea and or mild uncomplicated colitis. Correlate clinically. Otherwise no suspicious new or acute finding seen.) Assessment and Plan (1) Chronic diarrhea Narrative/Plan: 60-year-old female with a history of bowel resection in 2005 who has had chronic diarrhea since. Patient was admitted to the hospital with complaints of shortness of breath and found to be in acute renal failure. The patient also was with complaints of frequent diarrhea as frequent as every 2 hours. Patient states she's been living like this for years, and does not take any antidiarrheal medications at home. She has not had any outpatient follow-ups with gastroenterology. Her last colonoscopies were in 2017 and 2019 done by which were unremarkable other than some scattered diverticulosis. Patient had a C. difficile test which was negative. She is currently on octreotide 200 mcg every 8 hours IV, Questran ordered and Imodium, however antonina dean is refusing Questran at this time. 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 Need to consider possible etiologies of microscopic and endogenous colitis, celiac panel, and also need to consider Exocrine pancreatic insufficiency. Will order stool studies, fecal elastase as well as celiac panel. Will schedule patient for EGD and colonoscopy with biopsies. Current Visit: Yes Status: Acute Code(s): K52.9 - NONINFECTIVE GASTROENTERITIS AND COLITIS, UNSPECIFIED SNOMED Code(s): 765885397 (2) History of bowel resection Current Visit: Yes Status: Acute Code(s): Z90.49 - ACQUIRED ABSENCE OF OTHER SPECIFIED PARTS OF DIGESTIVE TRACT SNOMED Code(s): 688756430 (3) Acute renal failure Current Visit: Yes Status: Acute Code(s): N17.9 - ACUTE KIDNEY FAILURE, UNSPECIFIED SNOMED Code(s): 44173266 Plan: 1. Clear liquid diet, NPO after midnight 2. Will change Imodium 2 tablets every six hours scheduled after colonoscopy 3. Recommend discontinuing octreotide 4. Stool studies ordered, fecal elastase ordered 5. Plan for EGD and colonoscopy tomorrow with biopsies 6. Bowel prep today 7. Celiac panel ordered Thank you for this consultation, we will continue to follow. Dr. Day Jean I agree with the dictator's note, documented as a scribe by Gabriela Panchal.
[2021-10-11] MEDS: POTASSIUM CHLORIDE ER 20 MEQ TAB.ER PO SCH (12:27)
--- NOTE | 2021-10-11 12:36 | PN ---
PROGRESS NOTE Patient is seen for followup for acute kidney injury. Renal function has improved significantly with creatinine down to 1.0 from 7.8 on initial admission. Currently patient is being hydrated. She is maintained on normal saline at 75 mL an hour. No significant complaints today. PHYSICAL EXAMINATION: Blood pressure 106/61, heart rate 67 per minute, she is afebrile. Examination of the heart S1, S2. Examination of the lungs, decreased breath sounds at the bases. Abdomen is soft, nontender. Examination of lower extremities shows no significant edema. LAB: Show sodium 138, potassium 3.2, BUN 12, serum creatinine 1.0. ASSESSMENT: 1. Acute kidney injury, prerenal and associated with hypovolemia and hypotension, currently improved. 2. Metabolic acidosis secondary to acute kidney injury and GI fluid loss, status post bicarb drip, now resolved. 3. Hypokalemia associated with poor oral intake, being replaced. 4. Hypertension. 5. Chronic diarrhea. C diff toxin is negative. PLAN: Encourage increased oral intake. Continue with the IV fluids for now. Replace potassium. MMODL / IJN: [id number] /
[2021-10-11] MEDS ORDERED: PEG 3350-NA SULF,BICARB,CL/KCL 4,000 ML BOTTLE PO ONE (13:00)
[2021-10-11 13:06] VITALS: BMI 20.2
[2021-10-11] MEDS: LOPERAMIDE 2 MG CAP PO SCH ×3 (13:46→20:05)
--- NOTE | 2021-10-11 16:46 | P.PN ---
Subjective Progress Note Date: 10/11/21 This is a 60-year-old female admitted with hypovolemic shock ,acute renal failure, dehydration, chronic diarrhea 1-2 years-frequency reported as every couple of hours-even during sleep, in a patient with history of bowel resection, [address] Bull reporting scattered diverticulosis, EGD /colonoscopy 2019 reporting antral gastritis, mild esophagitis and multiple other medical issues. Patient reports diet intake poor at home and at work as it leads to increased diarrhea. States has not been able to take Questran, actually takes no antidiarrheals at home. Reports Questran makes her nauseated. Denies abdominal pain, only cramping during diarrhea episodes .Currently patient consuming 50-75%. Reports diarrhea as yellow with oily appearance on top, odiferous. C. difficile colitis ruled out. Maintained on IV fluid hydration. Renal function improving, stable. Potassium 3.2, magnesium 1.6 receiving supplementation as per replacement protocols. Afebrile. Objective - Vital Signs Vital signs: Vital Signs Temp 98.0 F 10/11/21 12:25 Pulse 58 L 10/11/21 12:25 Resp 18 10/11/21 13:53 BP 113/65 10/11/21 12:25 Pulse Ox 98 10/11/21 12:25 Intake & Output 10/10/21 10/11/21 10/11/21 18:59 06:59 18:59 Intake Total 1200 240 Output Total 375 450 250 Balance 825 -450 -10 Weight 47 kg 47 kg Intake: Oral 1200 240 Output: Urine 375 450 250 Other: Voiding Method Indwelling Catheter Indwelling Catheter Indwelling Catheter # Voids 2 # Bowel Movements 1 2 - Exam PHYSICAL EXAM: VITAL SIGNS: As above GENERAL: Sitting up in bed, no acute distress, oral mucosa moist HEENT: Conjunctivae normal. eyes normal. NECK: Supple, No JVD. CARDIOVASCULAR: S1, S2 regular. No murmur RESPIRATION: Breath sounds diminished in the bases. No rhonchi or crackles. ABDOMEN: Soft, nontender, nondistended . No guarding. no masses palpable. Positive Bowel sounds heard. LEGS: No edema. no swelling PSYCHIATRY: Alert and oriented X3, mood and affect normal. NERVOUS SYSTEM: Cranial N 2-12 grossly normal. Moves all 4 limbs. No focal deficits. Strength and sensation grossly intact. Skin: no lesions, no rash - Labs CBC & Chem 7: 10/08/21 07:48 10/11/21 05:29 Labs: Abnormal Lab Results - Last 24 Hours (Table) 10/11/21 Range/Units 05:29 Potassium 3.2 L (3.5-5.1) mmol/L Chloride 109 H (98-107) mmol/L Glucose 112 H (74-99) mg/dL Calcium 8.0 L (8.4-10.2) mg/dL Assessment and Plan Assessment: Hypovolemic shock, present on admission, related to severe dehydration, severe diarrhea Hypotension secondary to the above Acute renal failure secondary to ATN secondary to dehydration, hypotension Chronic diarrhea, negative for C. difficile colitis History of bowel resection Family history of colon cancer Hypokalemia Hypomagnesemia Severe protein calorie malnutrition, BMI 20.2 Plan: Continue on current medication regime ,monitoring and symptomatic treatment. Potassium and magnesium supplementation as per previously ordered potassium and magnesium replacement protocols. Sandostatin discontinued. Evaluated by GI and patient is scheduled for both EGD and colonoscopy tomorrow as well as additional stool studies. Maintain IV fluid hydration. Avoid nephrotoxins. Close monitoring of electrolytes, renal function, hemoglobin with repeat labs ordered for a.m. The impression and plan of care has been dictated as directed. : I performed a history and examination of this patient, discussed the same with the dictator. I agree with the dictator's note ,documented as a scribe. Any additional findings or plans will be noted.
[2021-10-11 20:58] LABS: Magnesium 1.5 mg/dL (1.6-2.3); Potassium 3.6 mmol/L (3.5-5.1)
[2021-10-11] MEDS ORDERED: POTASSIUM CHLORIDE ER 20 MEQ TAB.ER PO SCH (22:00)
[2021-10-11] MEDS: MAGNESIUM SULFATE-D5W PMX 1 GM in DEXTROSE/WATER 1 100ML.BAG IVPB SCH ×2 (22:02→23:21)
[2021-10-12] MEDS: LACTATED RINGERS 1,000 ML IV SCH (06:42)
[2021-10-12 07:31] LABS: Basophils % (A) 1 %; Eosinophils # (A) 0.1 k/uL (0-0.7); Eosinophils % (A) 2 %; HCT 24.5 % (34.0-46.0); Lymphocytes % (A) 17 %; MCH 32.9 pg (25.0-35.0); MCHC 34.3 g/dL (31.0-37.0); MCV 95.9 fL (80.0-100.0); Mean Platelet Volume 7.6; Monocytes # (A) 0.4 k/uL (0-1.0); Monocytes % (A) 6 %; Neutrophils # (A) 4.2 k/uL (1.3-7.7); Neutrophils % (A) 70 %; Platelet Count 156 k/uL (150-450); RBC 2.55 m/uL (3.80-5.40); RDW 12.2 % (11.5-15.5)
[2021-10-12 07:48] LABS: HGB 8.4 gm/dL (11.4-16.0)
[2021-10-12 07:55] LABS: Calcium 8.7 mg/dL (8.4-10.2); Magnesium 2.1 mg/dL (1.6-2.3); Potassium 3.7 mmol/L (3.5-5.1)
[2021-10-12] MEDS: LOPERAMIDE 2 MG CAP PO SCH ×4 (08:23→19:41)
[2021-10-12] MEDS: METOPROLOL SUCCINATE (ER) 25 MG TAB.ER.24H PO SCH (08:26)
[2021-10-12] MEDS: ATORVASTATIN 10 MG TAB PO SCH (08:26)
[2021-10-12] MEDS: ASPIRIN 325 MG TAB PO SCH (08:26)
[2021-10-12] MEDS: ESCITALOPRAM 10 MG TAB PO SCH (08:26)
[2021-10-12] MEDS ORDERED: POTASSIUM CHLORIDE ER 20 MEQ TAB.ER PO SCH (09:00)
[2021-10-12] MEDS: CHOLESTYRAMINE (WITH SUGAR) 4 GM PACKET PO SCH ×2 (12:11→17:30)
[2021-10-12] MEDS ORDERED: PROPOFOL 10 MG/ML 50 ML VIAL IV ONE (12:22)
[2021-10-12] MEDS ORDERED: LIDOCAINE 1% INJ 10MG/ML (20 ML MDV) ONE (12:22)
[2021-10-12] MEDS ORDERED: ONDANSETRON 4 MG/2 ML VIAL ONE (12:22)
[2021-10-12] MEDS ORDERED: IV FLUID CONTINUATION 1,000 ML IV ONE ×2 (12:24)
--- NOTE | 2021-10-12 12:49 | P.PCN ---
Date of Procedure: 10/12/21 Procedure(s) Performed: Brief history: Patient is a pleasant 60-year-old white female admitted hospital with severe chronic diarrhea of last 2 years duration. She lost 30 pounds since onset of the symptoms. She is been having problems anywhere from 10-12 a day which are loose to watery in consistency and no blood or mucus in the stool. Stool testing were negative. She is scheduled for an upper endoscopy as well as colonoscopy as a part of evaluation ofchronic diarrhea and progressive weight l ossure performed: Procedures performed EsophagogastroduodenoscopyBiopsy Colonoscopy with the biopsy Preoperative diagnosis: chronic diarrhea and progressive weight loss of 2 years duration Anesthesia: MAC Procedure: After informed consent was obtained from the patient was brought into the endoscopy unit and IV sedation was administered by anesthesia under continuous monitoring. Initially upper endoscopy was done. The Olympus GF 160 video endoscope was inserted inserted into the mouth and esophagus intubated without any difficulty and was gradually advanced into the stomach and duodenum and carefully examined. The bulb and second part of the duodenum appeared normal. biopsies were done from the duodenum to rule out celiac disease. The scope was then withdrawn into the stomach adequately insufflated with air and upon careful examination the antrum had mild diffuse gastritis and biopsies were done from this area. The body, cardia and fundus appeared normal. The scope was then withdrawn into the esophagus. The GE junction was located at 40 cm to the incisors. It appeared regular with no erythema erosions or ulcerations. Rest of the esophagus appeared normal. Patient tolerated the procedure well. At this time the patient continued to remain sedation. Initial digital rectal examination was normal. Olympus CF 160 video colonoscope was then inserted into the rectum and gradually advanced to the colonhout any difficulty. Careful examination was performed as the scope was gradually being withdrawn. The prep was excellent. The ileocolic anastomosis appeared normal. The distal ileum appeared normal. Mucosa of the, ascending colon, transverse colon, descending colon, sigmoid colon and rectum appeared normal. random biopsies were done from the ascending and descending colon to rule out microscopic/collagenous colitis. Retroflexion was performed in the rectum and no lesions were noted. Patient tolerated the procedure well. Impression: 1. upper endoscopy revealed mild antral gastritis 2. colonoscopy was within normal limits with no colitis or colorectal neoplasia Recommendations: Findings of this examination were discussed with the patient . At this time will await biopsy results. Diet will be advanced as tolerated. Start her on Imodium 2 tablets 4 times daily.
--- NOTE | 2021-10-12 17:44 | P.PN ---
Subjective Progress Note Date: 10/12/21 This is a 60-year-old female admitted with hypovolemic shock ,acute renal failure, dehydration, chronic diarrhea 1-2 years-frequency reported as every couple of hours-even during sleep, in a patient with history of bowel resection, [address] Bull reporting scattered diverticulosis, EGD /colonoscopy 2019 reporting antral gastritis, mild esophagitis and multiple other medical issues. Patient reports diet intake poor at home and at work as it leads to increased diarrhea. States has not been able to take Questran, actually takes no antidiarrheals at home. Reports Questran makes her nauseated. Denies abdominal pain, only cramping during diarrhea episodes .Currently patient consuming 50-75%. Reports diarrhea as yellow with oily appearance on top, odiferous. C. difficile colitis ruled out. Maintained on IV fluid hydration. Renal function improving, stable. Potassium 3.2, magnesium 1.6 receiving supplementation as per replacement protocols. Afebrile. 10/12/2021 NPO, scheduled for EGD and colonoscopy this afternoon.completed prep, reported clear per RN. Hemoglobin decreased to 8.4 with no signs or symptoms of bleed. Electrolytes within normal limits. VSS. Denies chest pain, palpitations or shortness of breath. Denies abdominal pain. No diarrhea reported since 0. Objective - Vital Signs Vital signs: Vital Signs Temp 97.8 F 10/12/21 15:42 Pulse 78 10/12/21 15:42 Resp 18 10/12/21 15:42 BP 114/78 10/12/21 15:42 Pulse Ox 98 10/12/21 15:42 Intake & Output 10/11/21 10/12/21 10/12/21 18:59 06:59 18:59 Intake Total 958 1999 100 Output Total 650 1 Balance 308 1999 99 Weight 47 kg 50 kg Intake: IV 100 Oral 958 1999 Output: Urine 650 Stool 1 Other: Voiding Method Indwelling Catheter Toilet Toilet Bedside Commode Bedside Commode # Voids 1 2 # Bowel Movements 1 - Exam PHYSICAL EXAM: VITAL SIGNS: As above GENERAL: Alert and oriented 3, Sitting up in bed, no acute distress, oral mucosa dry. HEENT: Conjunctivae normal. eyes normal. NECK: Supple, No JVD. CARDIOVASCULAR: S1, S2 regular. No murmur RESPIRATION: Breath sounds diminished in the bases. No rhonchi or crackles. ABDOMEN: Soft, nontender, nondistended . No guarding. no masses palpable. Positive Bowel sounds heard. LEGS: No edema. no swelling NERVOUS SYSTEM: Cranial N 2-12 grossly normal. Moves all 4 limbs. No focal deficits. Strength and sensation grossly intact. Skin: Warm and dry no rash - Labs CBC & Chem 7: 10/12/21 06:30 10/12/21 06:30 Labs: Abnormal Lab Results - Last 24 Hours (Table) 10/11/21 10/12/21 10/12/21 Range/Units 20:33 06:30 06:30 RBC 2.55 L (3.80-5.40) m/uL Hgb 8.4 L D (11.4-16.0) gm/dL Hct 24.5 L (34.0-46.0) % Chloride 108 H 110 H (98-107) mmol/L Glucose 105 H (74-99) mg/dL Magnesium 1.5 L (1.6-2.3) mg/dL Microbiology - Last 24 Hours (Table) 10/11/21 20:20 Stool Culture - Preliminary Stool Assessment and Plan Assessment: Hypovolemic shock, present on admission, related to severe dehydration, severe diarrhea Hypotension secondary to the above Acute renal failure secondary to ATN secondary to dehydration, hypotension Chronic diarrhea, negative for C. difficile colitis History of bowel resection Family history of colon cancer Hypokalemia Hypomagnesemia Severe protein calorie malnutrition, BMI 20.2 Plan: Continue on current medication regime ,monitoring and symptomatic treatment. NPO, scheduled for both EGD and colonoscopy with BX this afternoon. stool studies in progress. Maintain IV fluid hydration. Discharge planning in progress for tomorrow pending endoscopy results, final DC recommendations and clearance per GI. The impression and plan of care has been dictated as directed. : I performed a history and examination of this patient, discussed the same with the dictator. I agree with the dictator's note ,documented as a scribe. Any additional findings or plans will be noted.
[2021-10-12] MEDS: SODIUM CHLORIDE 0.9% 1,000 ML IV SCH (19:35)
[2021-10-12] MEDS: ALPRAZolam 0.25 MG TAB PO SCH (23:30)
[2021-10-13] MEDS: LACTATED RINGERS 1,000 ML IV SCH (05:52)
[2021-10-13] MEDS: METOPROLOL SUCCINATE (ER) 25 MG TAB.ER.24H PO SCH (08:25)
[2021-10-13] MEDS: ATORVASTATIN 10 MG TAB PO SCH (08:25)
[2021-10-13] MEDS: ESCITALOPRAM 10 MG TAB PO SCH (08:25)
[2021-10-13] MEDS: LOPERAMIDE 2 MG CAP PO SCH ×2 (08:25→12:04)
[2021-10-13] MEDS: ASPIRIN 325 MG TAB PO SCH (08:26)
--- NOTE | 2021-10-13 10:59 | P.PN ---
Subjective Progress Note Date: 10/13/21 Principal diagnosis: Diarrhea This is a 60-year-old white female who presented to the emergency department on with complaints of shortness of breath. The patient had been experiencing exertional dyspnea with lightheadedness and acid reflux. The patient was found to have acute renal failure and was admitted to the hospital. [facility] is following patient closely. The patient also is with complaints of recurrent chronic diarrhea therefore gastroenterology was consulted. The patient states she had a hysterectomy in 2005 and one week following she had a twisted bowel with obstruction and underwent a bowel resection which she beleives 18 inches was removed. Since that time she has had chronic diarrhea. Patient states over the last 1-2 years she has loose watery bowel movements which can be explosive at times up to every 2 hours. She denies any new medic ations. She states that they are yellow/orange and oily. Patient denies taking any antidiarrheals for her chronic diarrhea. States she reports 8-12 hours a day and drinks protein milk and has a poor diet due to being afraid she will have to go to the bathroom more often. She had a colonoscopy in [address] Bull which showed scattered diverticulosis. In April 2019 she underwent EGD and colonoscopy for frequent diarrhea and acid reflux. EGD showed antral gastritis and mild esophagitis. Colonoscopy showed a normal colon. She states that she has not seen a physicist solid earth in the past regarding her diarrhea. Denies any abdominal pain but states she sometimes gets cramping with her diarrhea. C. difficile toxin negative. On admission WBC 8.0 hemoglobin 13.3 sodium 138 potassium 4.0 total bilirubin 0.4 AST 16 ALT 13 alk phosphatase 87. She was started on octreotide 200 g every 8 hours, Imodium as needed and Questran. However the patient has been refusing her Questran due to some nausea. She had a CT of the abdomen and pelvis that showed some fluid in the proximal colon that could reflect product of diarrhea and her mild uncomplicated colitis. 10/13/2021 Yesterday the patient underwent an daily and colonoscopy. The EGD revealed mild antral gastritis. Colonoscopy was within normal limits with no colitis or colorectal neoplasia. Biopsies were obtained. Today the patient states she has had 2-3 episodes of diarrhea once this morning at 2:30 again at 6:30. She denies any blood in her stool, abdominal pain, nausea, or vomiting. She is tolerating a regular diet. Objective - Vital Signs Vital signs: Vital Signs Temp 98.1 F 10/13/21 08:00 Pulse 92 10/13/21 08:00 Resp 17 10/13/21 08:00 BP 112/43 10/13/21 08:00 Pulse Ox 95 10/13/21 08:00 Intake & Output 10/12/21 10/13/21 10/13/21 18:59 06:59 18:59 Intake Total 340 240 240 Output Total 1 Balance 339 240 240 Weight 50.5 kg Intake: IV 100 Oral 240 240 240 Output: Stool 1 Other: Voiding Method Toilet Toilet Toilet Bedside Commode Bedside Commode Bedside Commode # Voids 2 1 # Bowel Movements 1 1 - Exam General appearance: The patient is alert, oriented, appears in no acute distress. HET: Head is normocephalic and atraumatic. Conjunctiva pink. Sclera anicteric. Neck: Supple without lymphadenopathy. Abdomen: Soft, nontender, nondistended with bowel sounds. No guarding or rigidity. Extremities: Normal skin color and turgor. No pedal edema Skin: No rashes, no jaundice Neurological: No focal deficits. Alert and oriented -3. - Labs CBC & Chem 7: 10/12/21 06:30 10/12/21 06:30 Labs: Microbiology - Last 24 Hours (Table) 10/11/21 20:20 Stool Culture - Preliminary Stool Assessment and Plan (1) Chronic diarrhea Narrative/Plan: 60-year-old female with a history of bowel resection in 2006 who has had chronic diarrhea since. Patient was admitted to the hospital with complaints of shortness of breath and found to be in acute renal failure. The patient also was with complaints of frequent diarrhea as frequent as every 2 hours. Patient states she's been living like this for years, and does not take any antidiarrheal medications at home. She has not had any outpatient follow-ups with gastroenterology. Her last colonoscopies were in 2017 and 2019 done by which were unremarkable other than some scattered diverticulosis. Patient had a C. difficile test which was negative. She is currently on octreotide 200 mcg every 8 hours IV, Questran ordered and Imodium, however patient is refusing Questran at this time. 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 Need to consider possible etiologies of microscopic and endogenous colitis, celiac panel, and also need to consider Exocrine pancreatic insufficiency. Will order stool studies, fecal elastase as well as celiac panel. Will schedule patient for EGD and colonoscopy with biopsies. Status post EGD and colonoscopy. EGD showed mild gastritis and colonoscopy showed normal colon with no colitis or signs of colorectal neoplasia. Biopsies were obtained. Patient is to follow-up in the office next week Monday for biopsy results. Was discussed with patient to take 2 tablets of Imodium every 6 hours. Current Visit: Yes Status: Acute Code(s): K52.9 - NONINFECTIVE GAS TROENTERITIS AND COLITIS, UNSPECIFIED SNOMED Code(s): 990904871 (2) History of bowel resection Current Visit: Yes Status: Acute Code(s): Z90.49 - ACQUIRED ABSENCE OF OTHER SPECIFIED PARTS OF DIGESTIVE TRACT SNOMED Code(s): 397682832 (3) Acute renal failure Current Visit: Yes Status: Acute Code(s): N17.9 - ACUTE KIDNEY FAILURE, UNSPECIFIED SNOMED Code(s): 39835268 Plan: 1. Diet has tolerated 2. Continue Imodium 2 tablets every six hours scheduled 3. Stool studies ordered, fecal elastase ordered 4. Celiac panel ordered Thank you for this consultation, it is cleared for discharge from gastroenterology. Patient to follow-up with Dr. Jean next Monday. Dr. Day Jean I agree with the dictator's note, documented as a scribe by Gabriela Panchal.
[2021-10-13 11:05] LABS: HCT 24.7 % (34.0-46.0); HGB 8.4 gm/dL (11.4-16.0); MCH 32.7 pg (25.0-35.0); MCHC 33.9 g/dL (31.0-37.0); MCV 96.5 fL (80.0-100.0); Mean Platelet Volume 7.6; Platelet Count 164 k/uL (150-450); RBC 2.56 m/uL (3.80-5.40); RDW 12.5 % (11.5-15.5); WBC 5.8 k/uL (3.8-10.6)
[2021-10-13] MEDS: CHOLESTYRAMINE (WITH SUGAR) 4 GM PACKET PO SCH (12:04)
[2021-10-13 12:06] VITALS: BP 109/68; PULSE 77; RESP 16; TEMP 97.7
--- NOTE | 2021-10-13 15:54 | PN ---
PROGRESS NOTE Patient is seen for followup for acute kidney injury. Renal function has improved significantly with IV hydration. Plans for possible discharge today. PHYSICAL EXAMINATION: Blood pressure 109/68, heart rate 77 per minute. Patient is afebrile. Examination of lower extremities shows no evidence of edema. Abdomen is soft, nontender. SEC[employer] exam grossly intact. LABS: On October 12 show sodium 139, potassium 3.7, BUN 9, serum creatinine 0.9. ASSESSMENT: 1. Acute kidney injury, prerenal, currently improved. 2. Metabolic acidosis associated with acute kidney injury and GI fluid loss, status post bicarb drip, now resolved. 3. Chronic diarrhea. C diff toxin negative. 4. Hypokalemia status post replacement. PLAN: Patient can be discharged from nephrology standpoint. Repeat labs as outpatient for monitoring renal function. MMODL / IJN: [id number] /
[2021-10-13 17:35] LABS: Gliadin AB IgA, Deaminated NEGATIVE (NEGATIVE); Gliadin AB IgG, Deaminated NEGATIVE (NEGATIVE)
== END 2021-10-13 13:55 | disposition home or self-care (01) | DRG 682 ==
LOC: EC 11:58 → 3SCARD 14:56
PROVIDERS: ADMIT Family Medicine; ATTEND Family Medicine
PROC: 0DB98ZX Excision of Duodenum, Via Natural or Artificial Opening Endoscopic, Diagnostic (ICD-10-PCS; principal; 2021-10-12 12:00)
PROC: 0DBK8ZX Excision of Ascending Colon, Via Natural or Artificial Opening Endoscopic, Diagnostic (ICD-10-PCS; principal; 2021-10-12 12:00)
PROC: 0DB78ZX Excision of Stomach, Pylorus, Via Natural or Artificial Opening Endoscopic, Diagnostic (ICD-10-PCS; principal; 2021-10-12 12:00)
PROC: 0DBM8ZX Excision of Descending Colon, Via Natural or Artificial Opening Endoscopic, Diagnostic (ICD-10-PCS; principal; 2021-10-12 12:00)
DX: N17.0 Acute kidney failure with tubular necrosis (principal); E43 Unspecified severe protein-calorie malnutrition; R57.1 Hypovolemic shock; E87.2 Acidosis; Z68.1 Body mass index [BMI] 19.9 or less, adult; Z20.822 Contact with and (suspected) exposure to COVID-19; E78.5 Hyperlipidemia, unspecified; E83.42 Hypomagnesemia; E83.52 Hypercalcemia; E86.0 Dehydration; E86.1 Hypovolemia; E87.6 Hypokalemia; I10 Essential (primary) hypertension; I45.10 Unspecified right bundle-branch block; K21.00 Gastro-esophageal reflux disease with esophagitis, without bleeding; K29.70 Gastritis, unspecified, without bleeding; K52.9 Noninfective gastroenteritis and colitis, unspecified; Z79.82 Long term (current) use of aspirin; Z79.899 Other long term (current) drug therapy; Z80.0 Family history of malignant neoplasm of digestive organs; Z82.49 Family history of ischemic heart disease and other diseases of the circulatory system; Z90.49 Acquired absence of other specified parts of digestive tract; Z90.710 Acquired absence of both cervix and uterus
CPT/HCPCS: 36415; 43239; 45380; 70450; 71045; 74176; 78582; 80048; 80053; 81001; 82570; 82805; 83516; 83605; 83735; 83880; 84300; 84484; 84540; 85025; 85027; 85379; 85610; 85730; 87045; 87046; 87324; 87635; 88305; 88313; 88342; 93005; 96360; 99291

== ENCOUNTER 2021-10-22 01:36 | Inpatient (IN) | payer BC ==
[2021-10-22] MEDS ORDERED: SODIUM CHLORIDE 0.9% 1,000 ML IV STA ×2 (02:11)
--- NOTE | 2021-10-22 02:50 | ED ---
SOB HPI - General Chief Complaint: Shortness of Breath Stated Complaint: SOB, tachycardia Time Seen by Provider: 10/22/21 01:57 Source: patient Mode of arrival: ambulatory Limitations: no limitations - History of Present Illness Initial Comments: This patient is a 60-year-old woman who presents with complaint that approximately 24 hours ago she was awakened from sleep because she is finding it difficult to breathe. She states that this over the course of the day she has seemed to have more difficulty in breathing. She notes that it is worse when s he attempts to lie down or to sleep. She has not noted relieving factors other than sitting more upright. Patient denies fever or chills. No productive cough. Denies chest pain. Tonight she has noted that it feels like there is muscle spasm located in her back. She indicates inferior and medial to her right scapula. She denies injury but states that it does feel tender there. MD Complaint: shortness of breath Onset/Timin -: hour(s) Radiation: back, right arm Severity: mild Quality: other Consistency: constant (Cramping) Improves With: nothing Worsens With: lying flat, other (Palpation) Associated Symptoms: denies other symptoms Treatments Prior to Arrival: none - Related Data Home Medications Medication Instructions Recorded Confirmed Aspirin 325 mg PO DAILY 09/25/14 10/07/21 Metoprolol Succinate (ER) [Toprol 25 mg PO DAILY 07/10/17 10/07/21 XL] Multivit with Calcium,Iron,Min 1 each PO DAILY 07/10/17 10/07/21 [Women's Multivitamin] ALPRAZolam [Xanax] 0.25 mg PO HS 04/24/19 10/07/21 Escitalopram [Lexapro] 10 mg PO DAILY 04/24/19 10/07/21 Atorvastatin [Lipitor] 10 mg PO DAILY 10/07/21 10/07/21 Previous Rx's Medication Instructions Recorded Cholestyramine (with Sugar) 4 gm PO BID@1000,1800 #60 packet 10/13/21 [Questran Packet] Loperamide [Imodium] 4 mg PO QID #0 cap 10/13/21 Allergies Allergy/AdvReac Type Severity Reaction Status Date / Time latex Allergy Rash/Hives Verified 10/22/21 01:49 Penicillins Allergy Rash/Hives Verified 10/22/21 01:49 acetaminophen [From Vicodin] AdvReac Confusion Verified 10/22/21 01:49 codeine AdvReac Confusion Verified 10/22/21 01:49 hydrocodone bitartrate AdvReac Confusion, Verified 10/22/21 01:49 [From Vicodin] ELEV HR, RASH Review of Systems ROS Statement: Those systems with pertinent positive or pertinent negative responses have been documented in the HPI. ROS Other: All systems not noted in ROS Statement are negative. Constitutional: Denies: fever, chills Respiratory: Reports: dyspnea. Denies: cough, wheezes, hemoptysis Cardiovascular: Denies: chest pain, palpitations, orthopnea, edema, syncope Gastrointestinal: Reports: diarrhea. Denies: abdominal pain, vomiting, constipation Genitourinary: Denies: dysuria, hematuria Musculoskeletal: Denies: back pain Skin: Denies: rash Neurological: Denies: headache, weakness, numbness Past Medical History Past Medical History: Hyperlipidemia, Hypertension Additional Past Medical History / Comment(s): MOTHER HAS COLON CA. POS WATERY LOOSE STOOLS SINCE 04/2017; HX "TWISTED BOWeL, AFTER HYSTERECTOMY 2004." History of Any Multi-Drug Resistant Organisms: None Reported Past Surgical History: Appendectomy, Bowel Resection, Hysterectomy, Orthopedic Surgery Additional Past Surgical History / Comment(s): Mitral Valve Repair 2005. JAYANT ANKLE LIGAMENT REPAIR; RT KNEE MENISCUS; RT SHOULDER SURG; JAYANT ELBOW TENDINITIS SURG. JAYANT CATARACTS. Past Anesthesia/Blood Transfusion Reactions: Previous Problems w/ Anesthesia, F amily History of Problems w/ Anesthesia, Postoperative Nausea & Vomiting (PONV) Additional Past Anesthesia/Blood Transfusion Reaction / Comment(s): MOTHER HAD PONV., low blood pressures after anesthesia Past Psychological History: No Psychological Hx Reported, Anxiety Smoking Status: Never smoker Past Alcohol Use History: Rare Past Drug Use History: None Reported - Past Family History Mother Family Medical History: Cancer Additional Family Medical History / Comment(s): colon cancer General Exam Limitations: no limitations General appearance: alert, in no apparent distress Head exam: Present: atraumatic, normocephalic Eye exam: Present: normal appearance. Absent: scleral icterus, conjunctival injection Respiratory exam: Present: normal lung sounds bilaterally, rales (Bilateral bases). Absent: respiratory distress, wheezes, rhonchi, stridor, accessory muscle use, decreased breath sounds Cardiovascular Exam: Present: regular rate, normal rhythm, normal heart sounds. Absent: systolic murmur, diastolic murmur, rubs, gallop GI/Abdominal exam: Present: soft. Absent: distended, tenderness, guarding, rebound, rigid, mass Extremities exam: Present: normal inspection, normal capillary refill. Absent: pedal edema, calf tenderness Back exam: Present: normal inspection, tenderness (Right thoracic back medial to the scapula). Absent: CVA tenderness (R), CVA tenderness (L) Neurological exam: Present: alert Skin exam: Present: warm, dry, intact, normal color. Absent: rash Course Vital Signs 10/22/21 01:46 Temperature 98.6 F Pulse Rate 105 H Respiratory 24 Rate Blood Pressure 115/77 O2 Sat by Pulse 99 Oximetry Medical Decision Making - Medical Decision Making This patient is 60-year-old woman presenting with dyspnea that does appear at this point to be multifactorial. The patient clinically does manifest congestive heart failure. The workup also reveals bilateral pulmonary embolism and bilateral pleural effusions. There is not appear to be right ventricular strain, per the radiologist. Patient be admitted. Patient will have echocardiogram and cardiology and pulmonology consults. Started on heparin. - Lab Data Result diagrams: 10/22/21 02:48 10/22/21 02:48 Lab Results 10/22/21 10/22/21 10/22/21 Range/Units 02:48 02:48 02:48 WBC 9.2 (3.8-10.6) k/uL RBC 2.95 L (3.80-5.40) m/uL Hgb 9.4 L (11.4-16.0) gm/dL Hct 29.7 L (34.0-46.0) % MCV 100.6 H (80.0-100.0) fL MCH 31.9 (25.0-35.0) pg MCHC 31.7 (31.0-37.0) g/dL RDW 13.7 (11.5-15.5) % Plt Count 331 D (150-450) k/uL MPV 8.3 Neutrophils % 75 % Lymphocytes % 16 % Monocytes % 5 % Eosinophils % 3 % Basophils % 0 % Neutrophils # 6.9 (1.3-7.7) k/uL Lymphocytes # 1.5 (1.0-4.8) k/uL Monocytes # 0.4 (0-1.0) k/uL Eosinophils # 0.2 (0-0.7) k/uL Basophils # 0.0 (0-0.2) k/uL Hypochromasia Moderate Macrocytosis Slight D-Dimer (<0.60) mg/L FEU Sodium 140 (137-145) mmol/L Potassium 3.8 (3.5-5.1) mmol/L Chloride 112 H (98-107) mmol/L Carbon Dioxide 18 L (22-30) mmol/L Anion Gap 10 mmol/L BUN 14 (7-17) mg/dL Creatinine 1.09 H (0.52-1.04) mg/dL Est GFR (CKD-EPI)AfAm 64 (>60 ml/min/1.73 sqM) Est GFR (CKD-EPI)NonAf 55 (>60 ml/min/1.73 sqM) Glucose 99 (74-99) mg/dL Calcium 9.6 (8.4-10.2) mg/dL Total Bilirubin 0.4 (0.2-1.3) mg/dL AST 32 (14-36) U/L ALT 16 (4-34) U/L Alkaline Phosphatase 81 (38-126) U/L Troponin I (0.000-0.034) ng/mL NT-Pro-B Natriuret Pep pg/mL Total Protein 5.7 L (6.3-8.2) g/dL Albumin 3.0 L (3.5-5.0) g/dL Coronavirus (PCR) (Not Detectd) Influenza Type A RNA Not Detected (Not Detectd) Influenza Type B (PCR) Not Detected (Not Detectd) 10/22/21 10/22/21 10/22/21 Range/Units 02:48 02:48 02:48 WBC (3.8-10.6) k/uL RBC (3.80-5.40) m/uL Hgb (11.4-16.0) gm/dL Hct (34.0-46.0) % MCV (80.0-100.0) fL MCH (25.0-35.0) pg MCHC (31.0-37.0) g/dL RDW (11.5-15.5) % Plt Count (150-450) k/uL MPV Neutrophils % % Lymphocytes % % Monocytes % % Eosinophils % % Basophils % % Neutrophils # (1.3-7.7) k/uL Lymphocytes # (1.0-4.8) k/uL Monocytes # (0-1.0) k/uL Eosinophils # (0-0.7) k/uL Basophils # (0-0.2) k/uL Hypochromasia Macrocytosis D-Dimer (<0.60) mg/L FEU Sodium (137-145) mmol/L Potassium (3.5-5.1) mmol/L Chloride (98-107) mmol/L Carbon Dioxide (22-30) mmol/L Anion Gap mmol/L BUN (7-17) mg/dL Creatinine (0.52-1.04) mg/dL Est GFR (CKD-EPI)AfAm (>60 ml/min/1.73 sqM) Est GFR (CKD-EPI)NonAf (>60 ml/min/1.73 sqM) Glucose (74-99) mg/dL Calcium (8.4-10.2) mg/dL Total Bilirubin (0.2-1.3) mg/dL AST (14-36) U/L ALT (4-34) U/L Alkaline Phosphatase (38-126) U/L Troponin I 0.212 H* (0.000-0.034) ng/mL NT-Pro-B Natriuret Pep 27853 pg/mL Total Protein (6.3-8.2) g/dL Albumin (3.5-5.0) g/dL Coronavirus (PCR) Not Detected (Not Detectd) Influenza Type A RNA (Not Detectd) Influenza Type B (PCR) (Not Detectd) 10/22/21 Range/Units 02:55 WBC (3.8-10.6) k/uL RBC (3.80-5.40) m/uL Hgb (11.4-16.0) gm/dL Hct (34.0-46.0) % MCV (80.0-100.0) fL MCH (25.0-35.0) pg MCHC (31.0-37.0) g/dL RDW (11.5-15.5) % Plt Count (150-450) k/uL MPV Neutrophils % % Lymphocytes % % Monocytes % % Eosinophils % % Basophils % % Neutrophils # (1.3-7.7) k/uL Lymphocytes # (1.0-4.8) k/uL Monocytes # (0-1.0) k/uL Eosinophils # (0-0.7) k/uL Basophils # (0-0.2) k/uL Hypochromasia Macrocytosis D-Dimer 5.49 H (<0.60) mg/L FEU Sodium (137-145) mmol/L Potassium (3.5-5.1) mmol/L Chloride (98-107) mmol/L Carbon Dioxide (22-30) mmol/L Anion Gap mmol/L BUN (7-17) mg/dL Creatinine (0.52-1.04) mg/dL Est GFR (CKD-EPI)AfAm (>60 ml/min/1.73 sqM) Est GFR (CKD-EPI)NonAf (>60 ml/min/1.73 sqM) Glucose (74-99) mg/dL Calcium (8.4-10.2) mg/dL Total Bilirubin (0.2-1.3) mg/dL AST (14-36) U/L ALT (4-34) U/L Alkaline Phosphatase (38-126) U/L Troponin I (0.000-0.034) ng/mL NT-Pro-B Natriuret Pep pg/mL Total Protein (6.3-8.2) g/dL Albumin (3.5-5.0) g/dL Coronavirus (PCR) (Not Detectd) Influenza Type A RNA (Not Detectd) Influenza Type B (PCR) (Not Detectd) - EKG Data -: EKG Interpreted by Fl EKG shows normal: sinus rhythm, axis (Normal), intervals (Prolonged QT), QRS complexes (Possible right ventricular conduction delay.), ST-T waves (Possible inferolateral ischemia) Rate: normal (Rate 96 bpm) Disposition Clinical Impression: Pulmonary embolism, Congestive heart failure, Pleural effusion Disposition: ADMITTED IP TO THIS [facility] Condition: Serious Referrals: Francisco Javier Malone DO [Primary Care Provider] - 1-2 days
[2021-10-22] MEDS ORDERED: MORPHINE SULFATE 4 MG/ML SYRINGE IV STA ×2 (03:15→05:28)
[2021-10-22 03:25] LABS: Calcium 9.6 mg/dL (8.4-10.2); Potassium 3.8 mmol/L (3.5-5.1); Total Bilirubin 0.4 mg/dL (0.2-1.3); Total Protein 5.7 g/dL (6.3-8.2)
--- NOTE | 2021-10-22 03:25 | XR ---
EXAMINATION TYPE: XR chest 1V portable DATE OF EXAM: 10/22/2021 COMPARISON: 10/07/2021 HISTORY: Short of breath TECHNIQUE: FINDINGS: There is pulmonary interstitial edema. There is mild cardiomegaly. There are sternal wires. Costophrenic angles show slight blunting IMPRESSION: Cardiomegaly and pulmonary edema with small pleural effusions. This is consistent with [place] heart failure and is a change compared to recent exam.
[2021-10-22 03:45] LABS: Basophils % (A) 0 %; Eosinophils # (A) 0.2 k/uL (0-0.7); Eosinophils % (A) 3 %; HCT 29.7 % (34.0-46.0); HGB 9.4 gm/dL (11.4-16.0); Hypochromasia Moderate; Lymphocytes # (A) 1.5 k/uL (1.0-4.8); Lymphocytes % (A) 16 %; MCH 31.9 pg (25.0-35.0); MCHC 31.7 g/dL (31.0-37.0); MCV 100.6 fL (80.0-100.0); Macrocytosis Slight; Mean Platelet Volume 8.3; Monocytes # (A) 0.4 k/uL (0-1.0); Monocytes % (A) 5 %; Neutrophils # (A) 6.9 k/uL (1.3-7.7); Neutrophils % (A) 75 %; RBC 2.95 m/uL (3.80-5.40); RDW 13.7 % (11.5-15.5); WBC 9.2 k/uL (3.8-10.6)
[2021-10-22 03:52] LABS: Platelet Count 331 k/uL (150-450)
[2021-10-22] MEDS ORDERED: NITROGLYCERIN OINT 1 INCH/GM PACKET TOPICAL STA (04:00)
[2021-10-22] MEDS ORDERED: ASPIRIN 81 MG PO STA (04:01)
--- NOTE | 2021-10-22 05:17 | CT ---
EXAMINATION TYPE: CT chest angio for PE DATE OF EXAM: 10/22/2021 COMPARISON: None HISTORY: elevated d-dimer CT DLP: 180.4 mGycm Automated exposure control for dose reduction was used. CONTRAST: Performed with IV Contrast, patient injected with 60 mL of Isovue 370. There are 3-D post processed images. There are mild to moderate bilateral pleural effusions. Heart is borderline enlarged. There is no per icardial effusion. There is some patchy infiltrate and atelectasis at the lung bases. There is some d iffuse pulmonary interstitial edema. Thoracic aorta is intact. There is no aneurysm or dissection. There is filling defects in the right lower lobe pulmonary artery posterior basal segment branch. The re are filling defects in the left lower lobe pulmonary artery in the anterior basal segment branches . The thoracic spine is intact. There is no compression fracture. There are sternal wires. IMPRESSION: Bilateral lower lobe pulmonary emboli. Pleural effusions with pulmonary edema that could relate to co ngestive heart failure. This exam was discussed with emergency room staff at 5:15 AM.
[2021-10-22] MEDS ORDERED: HEPARIN SODIUM 1,000 UN/ML (10ML VL) IV ONE (05:19)
[2021-10-22] MEDS ORDERED: HEPARIN SODIUM 1,000 UN/ML (10ML VL) IV PRN (05:19)
[2021-10-22] MEDS: HEPARIN SOD,PORK IN 0.45% NACL 25,000 UNIT in 0.45% NACL 1 250ML.BAG IV SCH (06:42)
[2021-10-22 07:29] LABS: Partial Thromboplastin Time 22.8 sec (22.0-30.0)
[2021-10-22] MEDS: FUROSEMIDE 10 MG/ML 4 ML VIAL IV SCH ×2 (08:29→18:31)
[2021-10-22] MEDS: SODIUM CHLORIDE 0.9% 1,000 ML IV SCH ×2 (08:30→09:43)
--- NOTE | 2021-10-22 09:45 | P.CRDCN ---
History of Present Illness Consult date: 10/22/21 History of present illness: HISTORY OF PRESENT ILLNESS: This is a 60-year-old female with a past medical history significant for hypertension, hyperlipidemia, colitis, chronic diarrhea, and mitral valve repair in 2005 at [facility]. 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 We have been asked to see the patient in consultation for congestive heart failure. Patient examined at the bedside in the emergency room. Patient ivania chowdary she presented to the hospital yesterday with a chief complaint of shortness of breath. She states that yesterday it felt like someone was sitting on her chest when she laid flat and felt like she was not getting enough air. Patient states she was evaluated around [facility] for similar symptoms and was diagnosed with acute renal failure and colitis. The patient denies having any chest pain or pressure. She does report feeling slightly lightheaded yesterday but denies any syncopal episodes at home. She denies any fever or chills. The patient was found to have bilateral pulmonary emboli and was started on IV heparin. She was also found to be in congestive heart failure and started on IV Lasix. The patient denies any history of PE or DVT. She denies any prolonged immobility. Denies any recent travel. She denies a history of congestive heart failure. She reports having a cardiac catheterization in 2005 before her mitral valve repair and reports she did not require any stenting. EKG reveals sinus mechanism with diffuse T-wave inversions, present on previous EKG from September 2021 Chest xray cardiomegaly and pulmonary edema with small pleural effusions. This is consistent with acute heart failure and is a change compared to recent exam. Chest CTA: Bilateral lower lobe pulmonary emboli. Pleural effusions with pulmonary edema that could relate to congestive heart failure. Laboratory data: WBC 9.2. Hemoglobin 9.4. Platelet count 331. D-dimer 5.49. Sodium 140. Potassium 3.8. BUN 14. Creatinine 1.09. Troponin 0.212. 0.211. ProBNP 35,000 Current home cardiac medications include aspirin 325 mg daily, Lipitor 10 mg daily, lisinopril 10 mg daily, metoprolol succinate 25 mg daily REVIEW OF SYSTEMS: At the time of my exam: CONSTITUTIONAL: Denies fever or chills. HEENT: Denies blurred vision, vision changes, or eye pain. Denies hemoptysis CARDIOVASCULAR: Denies chest pain. Denies orthopnea. Denies PND. Denies palpita tions RESPIRATORY: + shortness of breath. GASTROINTESTINAL: Denies abdominal pain. Denies nausea or vomiting. HEMATOLOGIC: Denies bleeding disorders. GENITOURINARY: Denies any blood in urine. SKIN: Denies pruitis. Denies rash. PHYSICAL EXAM: VITAL SIGNS: Reviewed. GENERAL: Well-developed in no acute distress. HEENT: Head is normocephalic. Pupils are equal, round. Sclerae anicteric. Mucous membranes of the mouth are moist. Neck supple. No JVD or thyromegaly LUNGS: Respirations even and unlabored. Lungs diminished with bibasilar rales HEART: Regular rate and rhythm. S1 and S2 heard. ABDOMEN: Soft. Nondistended. Nontender. EXTREMITIES: Normal range of motion. No clubbing or cyanosis. Peripheral pulses intact. No lower extremity edema NEUROLOGIC: Awake and alert. Oriented x 3. ASSESSMENT: Shortness of breath Acute bilateral PE, per CTA, with elevated d-dimer of 5.49 Abnormal troponins, likely secondary to above, ACS ruled out Acute congestive heart failure, type unknown, echo pending History of mitral valve repair in 2005 at [facility] Hypertension Hyperlipidemia History of colitis Chronic diarrhea PLAN: Obtain 2D echo to assess cardiac structure and function Monitor kidney function Daily weights Accurate I&O Continue IV heparin. Pulmonary following for PE Add aspirin 81 mg daily. Resume home dose of atorvastatin Hold beta abilio in lieu of acute congestive heart failure Resume Lisinopril. Will decrease dose to 5mg due to blood pressures running on the lower side Further recommendations pending patient course Nurse practitioner note has been reviewed by physician. Signing provider agrees with the documented findings, assessment, and plan of care. Past Medical History Past Medical History: Hyperlipidemia, Hypertension Additional Past Medical History / Comment(s): MOTHER HAS COLON CA. POS WATERY LOOSE STOOLS SINCE 04/2017; HX "TWISTED BOWeL, AFTER HYSTERECTOMY 2004." History of Any Multi-Drug Resistant Organisms: None Reported Past Surgical History: Appendectomy, Bowel Resection, Hysterectomy, Orthopedic Surgery Additional Past Surgical History / Comment(s): Mitral Valve Repair 2005. JAYANT ANKLE LIGAMENT REPAIR; RT KNEE MENISCUS; RT SHOULDER SURG; JAYANT ELBOW TENDINITIS SURG. JAYANT CATARACTS. Past Anesthesia/Blood Transfusion Reactions: Previous Problems w/ Anesthesia, Family History of Problems w/ Anesthesia, Postoperative Nausea & Vomiting (PONV) Additional Past Anesthesia/Blood Transfusion Reaction / Comment(s): MOTHER HAD PONV., low blood pressures after anesthesia Past Psychological History: No Psychological Hx Reported, Anxiety Smoking Status: Never smoker Past Alcohol Use History: Rare Past Drug Use History: None Reported - Past Family History Mother Family Medical History: Cancer Additional Family Medical History / Comment(s): colon cancer Medications and Allergies Home Medications Medication Instructions Recorded Confirmed Type Aspirin 325 mg PO DAILY 09/25/14 10/22/21 History Metoprolol Succinate (ER) [Toprol 25 mg PO DAILY 07/10/17 10/22/21 History XL] Multivit with Calcium,Iron,Min 1 tab PO DAILY 07/10/17 10/22/21 History [Women's Multivitamin] ALPRAZolam [Xanax] 0.25 mg PO HS 04/24/19 10/22/21 History Escitalopram [Lexapro] 5 mg PO DAILY 04/24/19 10/22/21 History Atorvastatin [Lipitor] 10 mg PO DAILY 10/07/21 10/22/21 History Budesonide [Budesonide EC] 9 mg PO DAILY 10/22/21 10/22/21 History Ibuprofen [Motrin] 800 mg PO TID PRN 10/22/21 10/22/21 History Lisinopril [Prinivil] 10 mg PO DAILY 10/22/21 10/22/21 History Loperamide [Imodium] 4 mg PO QID PRN 10/22/21 10/22/21 History Allergies Allergy/AdvReac Type Severity Reaction Status Date / Time latex Allergy Rash/Hives Verified 10/22/21 07:20 Penicillins Allergy Rash/Hives Verified 10/22/21 07:20 acetaminophen [From Vicodin] AdvReac Confusion Verified 10/22/21 07:20 codeine AdvReac Confusion Verified 10/22/21 07:20 hydrocodone bitartrate AdvReac Confusion, Verified 10/22/21 07:20 [From Vicodin] ELEV HR, RASH Physical Exam Vitals: Vital Signs Temp Pulse Resp BP Pulse Ox 10/22/21 08:38 95 10/22/21 08:33 96 18 102/77 91 L 10/22/21 01:46 98.6 F 105 H 24 115/77 99 Intake and Output 10/21/21 10/22/21 10/22/21 22:59 06:59 14:59 Other: Weight 46.72 kg Results 10/22/21 02:48 10/22/21 02:48 Cardiac Enzymes 10/22/21 10/22/21 10/22/21 Range/Units 02:48 02:48 06:49 AST 32 (14-36) U/L Troponin I 0.212 H* 0.211 H* (0.000-0.034) ng/mL Coagulation 10/22/21 Range/Units 06:48 PT 11.0 (9.0-12.0) sec APTT 22.8 (22.0-30.0) sec CBC 10/22/21 Range/Units 02:48 WBC 9.2 (3.8-10.6) k/uL RBC 2.95 L (3.80-5.40) m/uL Hgb 9.4 L (11.4-16.0) gm/dL Hct 29.7 L (34.0-46.0) % Plt Count 331 D (150-450) k/uL Comprehensive Metabolic Panel 10/22/21 Range/Units 02:48 Sodium 140 (137-145) mmol/L Potassium 3.8 (3.5-5.1) mmol/L Chloride 112 H (98-107) mmol/L Carbon Dioxide 18 L (22-30) mmol/L BUN 14 (7-17) mg/dL Creatinine 1.09 H (0.52-1.04) mg/dL Glucose 99 (74-99) mg/dL Calcium 9.6 (8.4-10.2) mg/dL AST 32 (14-36) U/L ALT 16 (4-34) U/L Alkaline Phosphatase 81 (38-126) U/L Total Protein 5.7 L (6.3-8.2) g/dL Albumin 3.0 L (3.5-5.0) g/dL Current Medications Generic Name Dose Route Start Last Admin Trade Name Freq PRN Reason Stop Dose Admin Aspirin 325 mg 10/23/21 09:00 Aspirin 325 Mg Tab PO DAILY DARRIN Furosemide 40 mg 10/22/21 06:00 10/22/21 08:29 Furosemide 10 Mg/Ml 4 Ml Vial IV 40 mg Q12H DARRIN Administration Heparin Sodium (Porcine) 0 unit 10/22/21 05:19 Heparin Sodium 1,000 Un/Ml (10ml Vl) IV PER PROTOCOL PRN Low PTT Protocol Sodium Chloride 1,000 mls @ 130 mls/hr 10/22/21 02:11 10/22/21 06:35 Saline 0.9% IV 10/22/21 09:52 130 mls/hr .Q7H42M STA Administration Heparin Sodium/Sodium Chloride 250 mls @ 8.41 mls/hr 10/22/21 05:30 10/22/21 06:42 25,000 unit/ Sodium Chloride IV 18 units/kg/hr .Q24H DARRIN 8.41 mls/hr Administration Protocol 18 UNITS/KG/HR Sodium Chloride 1,000 mls @ 20 mls/hr 10/22/21 06:00 10/22/21 08:30 Saline 0.9% IV Not Given .Q24H DARRIN Intake and Output 10/21/21 10/22/21 10/22/21 22:59 06:59 14:59 Other: Weight 46.72 kg 10/22/21 02:48 10/22/21 02:48
--- NOTE | 2021-10-22 10:36 | ECHOF ---
Referral Reason:Heart Failure MEASUREMENTS -------- HEIGHT: 152.4 cm WEIGHT: 46.7 kg BP: IVSd: 0.8 cm (0.6 - 1.1) LVIDd: 4.5 cm (3.9 - 5.3) LVPWd: 0.9 cm (0.6 - 1.1) EDV(Teich): 93 ml IVSs: 0.9 cm LVIDs: 4.2 cm LVPWs: 0.9 cm %IVS Thck: 18 % ESV(Teich): 79 ml EF(Teich): 15 % %FS: 7 % SV(Teich): 14 ml IVC: 11.07 mm Ao Diam: 3.0 cm (2.0 - 3.7) LA Diam: 3.5 cm (2.7 - 3.8) AV Cusp: 1.7 cm (1.5 - 2.6) MV E [place]: 1.58 m/s MV DecT: 211 ms MV Dec [place]: 7.5 m/s MV A [place]: 0.26 m/s MV E/A Ratio: 6.14 MV PHT: 61 ms MV Vmax: 1.53 m/s MV Vmean: 0.61 m/s MV maxP.37 mmHg MV meanP.21 mmHg MV VTI: 30.0 cm MR Vmax: 3.58 m/s MR maxP.27 mmHg AV Vmax: 1.05 m/s AV maxP.41 mmHg TR Vmax: 3.00 m/s TR maxP.00 mmHg RAP: 5.00 mmHg RVSP: 41.00 mmHg %FS: 26.11 % EDV(Teich): 144.29 ml EF(Teich): 50.73 % ESV(Teich): 71.09 ml IVSd: 0.83 cm (0.6 - 1.1) IVSs: 0.83 cm LVIDd: 5.45 cm (3.9 - 5.3) LVIDs: 4.03 cm LVPWd: 1.28 cm (0.6 - 1.1) LVPWs: 1.56 cm SV(Teich): 73.20 ml FINDINGS -------- This was a technically good study. There is mild concentric left ventricular hypertrophy. Overall left ventricular systolic function i s severely impaired with, an EF between 20 - 25 %. Mid anterior LV wall motion is hypokinetic. M id lateral LV wall motion is hypokinetic. Mid posterior LV wall motion is hypokinetic. Mid infe rior LV wall motion is hypokinetic. Mid inferoseptal LV wall motion is hypokinetic. Mid anteros eptal LV wall motion is hypokinetic. Apical anterior LV wall motion is hypokinetic. Apical late ral LV wall motion is hypokinetic. Apical inferior LV wall motion is hypokinetic. Apical septum LV wall motion is hypokinetic. The right ventricle is normal in size. The left atrial size is normal. The right atrial size is normal. The aortic valve is trileaflet and appears structurally normal. Moderate mitral regurgitation is present. Mitral ring annulloplasty is in place. The tricuspid valve appears structurally normal. [id number] tricuspid regurgitation present. There is mild pulmonary hypertension. The right ventricular systolic pressure, as measured by Dop pler, is 41.00mmHg. There is no pulmonic regurgitation present. The aortic root size is normal. Normal inferior vena cava with normal inspiratory collapse consistent with estimated right atrial pre ssure of 5 mmHg. There is a small, generalized pericardial effusion present. CONCLUSIONS -------- 1. There is mild concentric left ventricular hypertrophy. 2. Overall left ventricular systolic function is severely impaired with, an EF between 20 - 25 %. 3. Mid anterior LV wall motion is hypokinetic. 4. Mid lateral LV wall motion is hypokinetic. 5. Mid posterior LV wall motion is hypokinetic. 6. Mid inferior LV wall motion is hypokinetic. 7. Mid inferoseptal LV wall motion is hypokinetic. 8. Mid anteroseptal LV wall motion is hypokinetic. 9. Apical anterior LV wall motion is hypokinetic. 10. Apical lateral LV wall motion is hypokinetic. 11. Apical inferior LV wall motion is hypokinetic. 12. Apical septum LV wall motion is hypokinetic. 13. Moderate mitral regurgitation is present. 14. Mitral ring annulloplasty is in place. 15. [id number] tricuspid regurgitation present. 16. There is mild pulmonary hypertension. 17. The right ventricular systolic pressure, as measured by Doppler, is 41.00mmHg. 18. There is a small, generalized pericardial effusion present. ACTUARIAL MATHEMATICIAN: Zuleyka Gautam RDCS
--- NOTE | 2021-10-22 10:49 | P.HPIM ---
History of Present Illness H&P Date: 10/22/21 Chief Complaint: Dyspnea, palpitations This is a 60-year-old female with past medical history of mitral valve repair 2006 , hypertension,recently admitted with hypovolemic shock, acute renal failure, dehydration, chronic diarrhea, underwent EGD and colonoscopy reportedly mild gastritis with normal colonoscopy, presented to the ER with complaints of worsening shortness of breath that awakened patient from sleep, accompanied by any palpitations. Reported generalized chest pressure when lying flat. He reports yesterday her O2 sat was within normal limits but heart rate averaging 90-100. On admission patient tachycardic heart rate 105, respiratory rate 24, maintaining O2 sats of 99% on room air. Currently maintaining O2 sats of 95% on 2 L nasal cannula. Afebrile normal WBC, hemoglobin 9.4, platelets 331, d-dimer 5.49. Chest CTA reported bilateral lower lobe pulmonary emboli, pleural effusions, and possible CHF. Heparin drip initiated. Chest x-ray reporting ca rdiomegaly, pulmonary edema with small pleural effusions, consistent with acute heart failure. ProBNP 35,000. EKG reported normal sinus rhythm, anterior infarct, age undetermined, ST and T-wave abnormality inferior lateral. Elevated troponin 0.2.2, 0.211. Sodium 140, potassium 3.8, chloride 112 bicarb 18 BUN 14, creatinine 1.09-baseline. Coronavirus not detected. Echo currently being completed at bedside. Review of Systems ROS Statement: Those systems with pertinent positive or pertinent negative responses have been documented in the HPI. ROS Other: All systems not noted in ROS Statement are negative. Past Medical History Past Medical History: Hyperlipidemia, Hypertension Additional Past Medical History / Comment(s): MOTHER HAS COLON CA. POS WATERY L OOSE STOOLS SINCE 04/2017; HX "TWISTED BOWeL, AFTER HYSTERECTOMY 2004." History of Any Multi-Drug Resistant Organisms: None Reported Past Surgical History: Appendectomy, Bowel Resection, Hysterectomy, Orthopedic Surgery Additional Past Surgical History / Comment(s): Mitral Valve Repair 2005. JAYANT ANKLE LIGAMENT REPAIR; RT KNEE MENISCUS; RT SHOULDER SURG; JAYANT ELBOW TENDINITIS SURG. JAYANT CATARACTS. Past Anesthesia/Blood Transfusion Reactions: Previous Problems w/ Anesthesia, Family History of Problems w/ Anesthesia, Postoperative Nausea & Vomiting (PONV) Additional Past Anesthesia/Blood Transfusion Reaction / Comment(s): MOTHER HAD PONV., low blood pressures after anesthesia Past Psychological History: No Psychological Hx Reported, Anxiety Smoking Status: Never smoker Past Alcohol Use History: Rare Past Drug Use History: None Reported - Past Family History Mother Family Medical History: Cancer Additional Family Medical History / Comment(s): colon cancer Medications and Allergies Home Medications Medication Instructions Recorded Confirmed Type Aspirin 325 mg PO DAILY 09/25/14 10/22/21 History Metoprolol Succinate (ER) [Toprol 25 mg PO DAILY 07/10/17 10/22/21 History XL] Multivit with Calcium,Iron,Min 1 tab PO DAILY 07/10/17 10/22/21 History [Women's Multivitamin] ALPRAZolam [Xanax] 0.25 mg PO HS 04/24/19 10/22/21 History Escitalopram [Lexapro] 5 mg PO DAILY 04/24/19 10/22/21 History Atorvastatin [Lipitor] 10 mg PO DAILY 10/07/21 10/22/21 History Budesonide [Budesonide EC] 9 mg PO DAILY 10/22/21 10/22/21 History Ibuprofen [Motrin] 800 mg PO TID PRN 10/22/21 10/22/21 History Lisinopril [Prinivil] 10 mg PO DAILY 10/22/21 10/22/21 History Loperamide [Imodium] 4 mg PO QID PRN 10/22/21 10/22/21 History Allergies Allergy/AdvReac Type Severity Reaction Status Date / Time latex Allergy Rash/Hives Verified 10/22/21 07:20 Penicillins Allergy Rash/Hives Verified 10/22/21 07:20 acetaminophen [From Vicodin] AdvReac Confusion Verified 10/22/21 07:20 codeine AdvReac Confusion Verified 10/22/21 07:20 hydrocodone bitartrate AdvReac Confusion, Verified 10/22/21 07:20 [From Vicodin] ELEV HR, RASH Physical Exam Vitals: Vital Signs Temp Pulse Resp BP Pulse Ox 10/22/21 08:38 95 10/22/21 08:33 96 18 102/77 91 L 10/22/21 01:46 98.6 F 105 H 24 115/77 99 Intake and Output 10/21/21 10/22/21 10/22/21 22:59 06:59 14:59 Other: Weight 46.72 kg - Exam PHYSICAL EXAM: VITAL SIGNS: As above GENERAL: Alert and oriented 3, Sitting up in bed, no acute distress, oral mucosa dry. HEENT: Conjunctivae normal. eyes normal. NECK: Supple, No JVD. CARDIOVASCULAR: S1, S2 regular. No murmur RESPIRATION: Breath sounds diminished in the bases. Fine bibasilar crackles. ABDOMEN: Soft, nontender, nondistended . No guarding. no masses palpable. Positive Bowel sounds heard. LEGS: No edema. no swelling NERVOUS SYSTEM: Cranial N 2-12 grossly normal. No focal deficits. Strength and sensation grossly intact. Skin: Warm and dry no rash Results CBC & Chem 7: 10/22/21 02:48 10/22/21 02:48 Labs: Abnormal Lab Results - Last 24 Hours (Table) 10/22/21 10/22/21 10/22/21 Range/Units 02:48 02:48 02:48 RBC 2.95 L (3.80-5.40) m/uL Hgb 9.4 L (11.4-16.0) gm/dL Hct 29.7 L (34.0-46.0) % MCV 100.6 H (80.0-100.0) fL D-Dimer (<0.60) mg/L FEU Chloride 112 H (98-107) mmol/L Carbon Dioxide 18 L (22-30) mmol/L Creatinine 1.09 H (0.52-1.04) mg/dL Troponin I 0.212 H* (0.000-0.034) ng/mL Total Protein 5.7 L (6.3-8.2) g/dL Albumin 3.0 L (3.5-5.0) g/dL 10/22/21 10/22/21 Range/Units 02:55 06:49 RBC (3.80-5.40) m/uL Hgb (11.4-16.0) gm/dL Hct (34.0-46.0) % MCV (80.0-100.0) fL D-Dimer 5.49 H (<0.60) mg/L FEU Chloride (98-107) mmol/L Carbon Dioxide (22-30) mmol/L Creatinine (0.52-1.04) mg/dL Troponin I 0.211 H* (0.000-0.034) ng/mL Total Protein (6.3-8.2) g/dL Albumin (3.5-5.0) g/dL Assessment and Plan Assessment: Acute bilateral PE Acute CHF, systolic dysfunction, Acute hypoxic respiratory failure secondary to all the above Elevated troponins, ruling out acute coronary syndrome, cardiology following History of mitral valve repair at [facility],2005 Recently admitted with Hypovolemic shock, related to severe dehydration, severe diarrhea, anemia. EGD reported mild antral gastritis, normal colonoscopy. Hypertension hyperlipidemia Chronic renal failure, stage III Anemia of chronic disease Chronic diarrhea, tested negative for C. difficile colitis on prior admission History of bowel resection Family history of colon cancer Severe protein calorie malnutrition, BMI 20.1 Plan continue current medication regime ,monitoring and symptomatic treatment. Maintain heparin drip. Protonix ordered for GI prophylaxis. Cardiology and pulmonary consulted with recommendations pending. Echo in progress. CHF pathway, strict I&O's, diuretics- Lasix IV push. Prognosis guarded given multiple complex medical issues. The impression and plan of care has been dictated as directed. : I performed a history and examination of this patient, discussed the same with the dictator. I agree with the dictator's note ,documented as a scribe. Any additional findings or plans will be noted.
[2021-10-22] MEDS: PANTOPRAZOLE 40 MG/10 ML VIAL IVP SCH (12:19)
--- NOTE | 2021-10-22 13:19 | P.CNPUL ---
History of Present Illness Consult date: 10/22/21 Requesting physician: Francisco Javier Malone Reason for consult: dyspnea, abnormal CXR/CT Chief complaint: Orthopnea History of present illness: Is a very pleasant 60-year-old female patient with history of chronic diarrhea, previous bowel resection, severe protein calorie malnutrition. She was just discharged from here on 10/13/2021 following a episode of hypovolemic shock, acute renal failure, dehydration and chronic diarrhea for the past 1-2 years. She did undergo a bowel resection in 2017. This past admission she had undergone EGD and colonoscopy that regards revealed only mild antral gastritis and colonoscopy within normal limits and no colitis or colorectal neoplasia. She presented here to the emergency room early this morning with rather acute episode of orthopnea and shortness of breath. She had not been having able to lay down to sleep without becoming more short of breath. She also felt there is some muscle spasm in her back. Near her right scapula. Chest x-ray reveals evidence of cardiomegaly and pulmonary edema with small pleural effusions consistent with acute heart failure. DT angiogram also found evidence of bilateral pulmonary emboli. Pleural effusions with pulmonary edema. The lady EKG reveals ST and T wave abnormalities in the lateral leads. A cardiogram re veals severely impaired left and consistent ventricular systolic function with ejection fraction 20-25%. Global hypokinesia. White count 9.2. Hemoglobin 9.1. D-dimer 5.49. Sodium 140. Potassium 3.8. Bicarb 18. Creatinine 1.09. AST 32. ALT 16. Troponin 0.212, 0.211, 0.215. ProBNP 35,000. Herrera virus by PCR not detected. She is seen today in the emergency department. Currently sitting up in bed. Awake and alert in no acute distress. She is fairly comfortable and maintaining O2 saturations in the 90s on room air. She's afebrile. Hemodynamically stable. Review of Systems REVIEW OF SYSTEMS: CONSTITUTIONAL: Denies any recent significant weight loss or weight gain. EYES: Denies change in vision. EARS, NOSE, MOUTH, THROAT: Denies headaches, denies sore throat. CARDIOVASCULAR: Denies chest pain, palpitations or syncopal episodes. RESPIRATORY: Positive for shortness of breath while lying flat, no cough, congestion or hemoptysis. GASTROINTESTINAL: Denies change in appetite, denies abdominal pain GENITOURINARY: Denies hematuria, denies infections. MUSKULOSKELETAL: Denies pain, denies swelling. INTEGUMENTARY: Denies rash, denies eczema. NEUROLOGICAL: Denies recent memory loss, no recent seizure activity. PSYCHIATRIC: Denies anxiety, denies depression. HEMATOLOGIC/LYMPHATIC: Denies anemia, denies enlarged lymph nodes. Past Medical History Past Medical History: Hyperlipidemia, Hypertension Additional Past Medical History / Comment(s): Pt recently admitted to [facility] on 10/07/21 with hypovolemic shock r/t severe dehydration/severe diarrhea/hypotension/acute renal failure, hypomagnesemia/hypokalemia and severe protein calorie malnutrition. 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 History of Any Multi-Drug Resistant Organisms: None Reported Past Surgical History: Appendectomy, Bowel Resection, Hysterectomy, Orthopedic Surgery Additional Past Surgical History / Comment(s): EGDs, colonoscopies, bowel resection, D&C, mitral valve repair, bilateral ankle ligament repair, R knee menicsus surgery, R shoulder surgery, bilateral elbow surgery for tendonitis, bilateral cataract removals, surgery for deviated septum. Past Anesthesia/Blood Transfusion Reactions: Previous Problems w/ Anesthesia, Family History of Problems w/ Anesthesia, Postoperative Nausea & Vomiting (PONV) Additional Past Anesthesia/Blood Transfusion Reaction / Comment(s): Pt has PONV. MOTHER HAD PONV, low blood pressures after anesthesia Smoking Status: Never smoker - Past Family History Mother Family Medical History: Cancer Additional Family Medical History / Comment(s): Mother is . She had colon cancer Father Family Medical History: Myocardial Infarction (IA) Additional Family Medical History / Comment(s): Father of a IA at the age of 54 yrs. Medications and Allergies Home Medications Medication Instructions Recorded Confirmed Type Aspirin 325 mg PO DAILY 09/25/14 10/22/21 History Metoprolol Succinate (ER) [Toprol 25 mg PO DAILY 07/10/17 10/22/21 History XL] Multivit with Calcium,Iron,Min 1 tab PO DAILY 07/10/17 10/22/21 History [Women's Multivitamin] ALPRAZolam [Xanax] 0.25 mg PO HS 04/24/19 10/22/21 History Escitalopram [Lexapro] 5 mg PO DAILY 04/24/19 10/22/21 History Atorvastatin [Lipitor] 10 mg PO DAILY 10/07/21 10/22/21 History Budesonide [Budesonide EC] 9 mg PO DAILY 10/22/21 10/22/21 History Ibuprofen [Motrin] 800 mg PO TID PRN 10/22/21 10/22/21 History Lisinopril [Prinivil] 10 mg PO DAILY 10/22/21 10/22/21 History Loperamide [Imodium] 4 mg PO QID PRN 10/22/21 10/22/21 History Allergies Allergy/AdvReac Type Severity Reaction Status Date / Time latex Allergy Rash/Hives Verified 10/22/21 07:20 Penicillins Allergy Rash/Hives Verified 10/22/21 07:20 acetaminophen [From Vicodin] AdvReac Confusion Verified 10/22/21 07:20 codeine AdvReac Confusion Verified 10/22/21 07:20 hydrocodone bitartrate AdvReac Confusion, Verified 10/22/21 07:20 [From Vicodin] ELEV HR, RASH Physical Exam Vitals: Vital Signs Temp Pulse Resp BP Pulse Ox 10/22/21 11:31 97.8 F 98 18 95/67 93 L 10/22/21 08:38 95 10/22/21 08:33 96 18 102/77 91 L 10/22/21 01:46 98.6 F 105 H 24 115/77 99 Intake and Output 10/21/21 10/22/21 10/22/21 22:59 06:59 14:59 Intake Total 46.676 Balance 46.676 Intake: Intake, IV Titration 46.676 Amount Heparin Sod,Pork in 0.45% 46.676 NaCl 25,000 unit In 0.45 % NaCl 1 250ml.bag @ 18 UNITS/KG/HR 8.41 mls/hr IV .Q24H COUNT INCLUDES THE [facility] Rx#: [id number] Other: Weight 46.72 kg 46.72 kg GENERAL EXAM: Alert, pleasant 60-year-old female, on room air, comfortable in no apparent distress. HEAD: Normocephalic. EYES: Normal reaction of pupils, equal size. NOSE: Clear with pink turbinates. THROAT: No erythema or exudates. NECK: No masses, no JVD. CHEST: No chest wall deformity. LUNGS: Equal air entry with crackles in the bilateral bases. CVS: S1 and S2 normal with no audible murmur, regular rhythm. ABDOMEN: No hepatosplenomegaly, normal bowel sounds, no guarding or rigidity. SPINE: No scoliosis or deformity SKIN: No rashes CENTRAL NERVOUS SYSTEM: No focal deficits, tone is normal in all 4 extremities. EXTREMITIES: There is no peripheral edema. No clubbing, no cyanosis. Peripheral pulses are intact. Results - Laboratory Findings CBC and BMP: 10/22/21 02:48 10/22/21 02:48 PT/INR, D-dimer PT 11.0 sec (9.0-12.0) 10/22/21 06:48 INR 1.0 (<1.2) 10/22/21 06:48 D-Dimer 5.49 mg/L FEU (<0.60) H 10/22/21 02:55 Abnormal lab findings: Abnormal Labs 10/22/21 10/22/21 10/22/21 02:48 02:48 02:48 RBC 2.95 L Hgb 9.4 L Hct 29.7 L MCV 100.6 H APTT D-Dimer Chloride 112 H Carbon Dioxide 18 L Creatinine 1.09 H Troponin I 0.212 H* Total Protein 5.7 L Albumin 3.0 L 10/22/21 10/22/21 10/22/21 02:55 06:49 08:50 RBC Hgb Hct MCV APTT D-Dimer 5.49 H Chloride Carbon Dioxide Creatinine Troponin I 0.211 H* 0.215 H* Total Protein Albumin 10/22/21 11:18 RBC Hgb Hct MCV APTT 72.8 H D-Dimer Chloride Carbon Dioxide Creatinine Troponin I Total Protein Albumin - Diagnostic Findings Chest x-ray: image reviewed CT scan - chest: image reviewed Assessment and Plan Assessment: 1 Acute exacerbation of systolic congestive heart failure in a patient found to have severely impaired left ventricular systolic function with ejection fraction 20-25%, severe global hypokinesia, troponin leak. 2 Acute bilateral pulmonary emboli, currently on a heparin drip. 3 Recent discharge for acute renal failure, dehydration, septic shock, chronic diarrhea status post EGD/colonoscopy without significant findings 4 Acute on chronic anemia 5 History of chronic diarrhea 6 Previous bowel resection 7 History of hypertension 8 History of hyperlipidemia 9 History of chronic renal failure, stage III 10 Severe protein calorie malnutrition Plan: The patient was seen and evaluated Chest x-ray, CAT scan and labs reviewed Echocardiogram ordered Diuretics given Heparin drip Currently stable and on room air Cardiology consult We will continue to follow and make further recommendations based on her clinical status I, the cosigning physician, performed a history & physical examination of the patient. Lungs sounds crackles in the bilateral bases. Maintaining good O2 saturations in the 90s on room air. I discussed the assessment and plan of care with my nurse practitioner, Bharati Chow. I attest to the above consultation as dictated by her. Time with Patient: Greater than 30
[2021-10-22] MEDS ORDERED: MORPHINE SULFATE 4 MG/ML SYRINGE IVP PRN (17:48)
[2021-10-22] MEDS: ALPRAZolam 0.25 MG TAB PO SCH (22:23)
[2021-10-23] MEDS: HEPARIN SOD,PORK IN 0.45% NACL 25,000 UNIT in 0.45% NACL 1 250ML.BAG IV SCH (05:41)
[2021-10-23] MEDS: SODIUM CHLORIDE 0.9% 1,000 ML IV SCH (05:42)
[2021-10-23] MEDS: FUROSEMIDE 10 MG/ML 4 ML VIAL IV SCH (05:43)
--- NOTE | 2021-10-23 07:22 | P.PN ---
Subjective Progress Note Date: 10/23/21 Principal diagnosis: Shortness of breath The patient is a 60-year-old female patient with a past medical history significant for mitral valve repair was performed at [facility] and the patient follows with a grip assembler out of the town as an outpatient as well as multiple comorbid conditions including chronic anemia and chronic renal failure who was admitted to the hospital with increasing shortness of breath and she was diagnosed with acute bilateral PE. Computed tomography scan of the chest and also she was found to be in heart failure exacerbation. The echo revealed impaired LV function was EF around 20% with moderate mitral regurgitation and mitral valve repair. No prior medical records to indicate what is her prior echo showed. Beside that her troponin came in to be slightly elevated but flat across support. The EKG showed sinus mechanism with diffuse T-wave inversion throughout concerning for global ischemia. She was seen this morning. She stated that she is feeling better indeterminable shortness of breath which she has been diuresing well. The blood pressure has been marginal for that reason I'm decreasing the dose of Lasix and also decreasing the dose of lisinopril. We did not start the patient on any beta abilio yesterday because she was in exacerbation of heart failure. She continues to be on heparin IV at this point regarding treating the pulmonary embolism. We need to obtain a copy of her previous medical records and also an old EKG to compare it to this EKG. If the EKG changes are new and or the cardiomyopathy she may to undergo heart catheterization to rule out severe coronary artery disease. Objective - Vital Signs Vital signs: Vital Signs Temp 98.5 F 10/23/21 03:29 Pulse 83 10/23/21 03:29 Resp 20 10/23/21 03:29 BP 99/66 10/23/21 03:29 Pulse Ox 94 L 10/23/21 03:29 Intake & Output 10/22/21 10/23/21 10/23/21 18:59 06:59 18:59 Intake Total 46.676 130.314 Balance 46.676 130.314 Weight 46.72 kg 46.2 kg Intake: Intake, IV Titration 46.676 130.314 Amount Heparin Sod,Pork in 0.45% 46.676 130.314 NaCl 25,000 unit In 0.45 % NaCl 1 250ml.bag @ 18 UNITS/KG/HR 8.41 mls/hr IV .Q24H [facility] Rx#: [id number] Other: Voiding Method Toilet - Constitutional General appearance: Present: no acute distress - Respiratory Respiratory: bilateral: diminished - Cardiovascular Rhythm: regular Heart sounds: normal: S1, S2 Abnormal Heart Sounds: Present: systolic murmur - Labs CBC & Chem 7: 10/22/21 02:48 10/22/21 02:48 Labs: Abnormal Lab Results - Last 24 Hours (Table) 10/22/21 10/22/21 10/22/21 Range/Units 06:49 08:50 11:18 APTT 72.8 H (22.0-30.0) sec Troponin I 0.211 H* 0.215 H* (0.000-0.034) ng/mL 10/22/21 Range/Units 16:49 APTT 45.4 H (22.0-30.0) sec Troponin I (0.000-0.034) ng/mL Assessment and Plan Assessment: Assessment #1 shortness of breath which is multifocality of #2 bilateral pulmonary embolism #3 heart failure exacerbation secondary to heart failure with reduced ejection fraction #4 history of mitral valve repair #5 severe cardiomyopathy differential new diagnosis or the patient is known to have cardiomyopathy #5 EKG changes concerning for global ischemia #6 abnormal troponin Plan Decrease the dose of Lasix in view of the marginal blood pressure Decrease the dose of lisinopril as well Continue holding any beta abilio at this point Continue IV heparin Consider oral anticoagulation Consider coronary angiogram if the cardiomyopathy is new to the patient Follow-up with the patient
[2021-10-23 07:50] LABS: Basophils % (A) 0 %; Eosinophils # (A) 0.3 k/uL (0-0.7); Eosinophils % (A) 5 %; HCT 31.6 % (34.0-46.0); HGB 10.2 gm/dL (11.4-16.0); Hypochromasia Moderate; Lymphocytes # (A) 1.7 k/uL (1.0-4.8); Lymphocytes % (A) 26 %; MCH 32.8 pg (25.0-35.0); MCHC 32.2 g/dL (31.0-37.0); Macrocytosis Slight; Mean Platelet Volume 7.9; Monocytes # (A) 0.4 k/uL (0-1.0); Monocytes % (A) 5 %; Neutrophils # (A) 3.9 k/uL (1.3-7.7); Neutrophils % (A) 60 %; Platelet Count 376 k/uL (150-450); RDW 14.4 % (11.5-15.5); WBC 6.5 k/uL (3.8-10.6)
[2021-10-23 08:08] LABS: Potassium 3.5 mmol/L (3.5-5.1)
[2021-10-23] MEDS: ASPIRIN 81 MG PO SCH (09:00)
[2021-10-23] MEDS ORDERED: lisinopriL 5 MG TAB PO SCH (09:00)
[2021-10-23] MEDS: PANTOPRAZOLE 40 MG/10 ML VIAL IVP SCH (09:00)
[2021-10-23] MEDS: ATORVASTATIN 10 MG TAB PO SCH (09:00)
[2021-10-23] MEDS ORDERED: ASPIRIN 325 MG TAB PO SCH (09:00)
--- NOTE | 2021-10-23 13:00 | P.PN ---
Subjective From records This is a 60-year-old female with past medical history of mitral valve repair 2005 , hypertension,recently admitted with hypovolemic shock, acute renal failure, dehydration, chronic diarrhea, underwent EGD and colonoscopy reportedly mild gastritis with normal colonoscopy, presented to the ER with complaints of worsening shortness of breath that awakened patient from sleep, accompanied by any palpitations. Reported generalized chest pressure when lying flat. He reports yesterday her O2 sat was within normal limits but heart rate averaging 90-100. On admission patient tachycardic heart rate 105, respiratory rate 24, maintaining O2 sats of 99% on room air. Currently maintaining O2 sats of 95% on 2 L nasal cannula. Afebrile normal WBC, hemoglobin 9.4, platelets 331, d-dimer 5.49. Chest CTA reported bilateral lower lobe pulmonary emboli, pleural effusions, and possible CHF. Heparin drip initiated. Chest x-ray reporting c ardiomegaly, pulmonary edema with small pleural effusions, consistent with acute heart failure. ProBNP 35,000. EKG reported normal sinus rhythm, anterior infarct, age undetermined, ST and T-wave abnormality inferior lateral. Elevated troponin 0.2.2, 0.211. Sodium 140, potassium 3.8, chloride 112 bicarb 18 BUN 14, creatinine 1.09-baseline. Coronavirus not detected. Echo currently being completed at bedside. Subjective: 10/23/2021 This is a pleasant 60 years old female who presents with dyspnea and found to have bilateral pulmonary embolism with severely impaired left ventricular function with ejection fraction 20-25%. Also her echocardiogram showing moderate mitral regurgitation with [id number] tricuspid regurgitation Troponin leak was noted by front desk. Also there was some evidence of pulmonary hypertension with mildly nutrition. Patient is been evaluated by front desk and bi data architect and she is currently on IV Lasix 40 mg twice daily, also she is on heparin drip area Because of her weak heart beta abilio was stopped and lisinopril dose was lowered to 5 mg. Also she was placed on aspirin 81 mg. Today she is pleasant, looks comfortable, mildly tachypneic while she is sitting up in bed. No significant chest pain. No hemoptysis. No significant basal crepitation or like edema on exam. Also patient has been complaining of from chronic diarrhea for times yesterday and it was watery, but this is a chronic for many years as per patient. She underwent EGD by Dr. Davis recently and told her she has microscopic colitis, they sent her prescription to [facility] pharmacy but it hasn't been picked up.. Walking fine but she eats little bit Objective - Vital Signs Vital signs: Vital Signs Temp 97.3 F L 10/23/21 08:00 Pulse 91 10/23/21 08:00 Resp 16 10/23/21 08:00 BP 95/61 10/23/21 08:00 Pulse Ox 94 L 10/23/21 03:29 Intake & Output 10/22/21 10/23/21 10/23/21 18:59 06:59 18:59 Intake Total 46.676 130.314 263.92 Output Total 1600 Balance 46.676 130.314 -1336.08 Weight 46.72 kg 46.2 kg 46.2 kg Intake: Intake, IV Titration 46.676 130.314 23.92 Amount Heparin Sod,Pork in 0.45% 46.676 130.314 23.92 NaCl 25,000 unit In 0.45 % NaCl 1 250ml.bag @ 18 UNITS/KG/HR 8.41 mls/hr IV .Q24H [facility] Rx#: [id number] Oral 240 Output: Urine 1600 Other: Voiding Method Toilet Toilet - Exam -GENERAL: The patient is alert and oriented x3, not in any acute distress. this build HEENT: Pupils are round and equally reacting to light. EOMI. No scleral icterus. No conjunctival pallor. Normocephalic, atraumatic. No pharyngeal erythema. No th yromegaly. CARDIOVASCULAR: S1 and S2 present. No murmurs, rubs, or gallops. PULMONARY: Chest is clear to auscultation, no wheezing or crackles. ABDOMEN: Soft, nontender, nondistended, normoactive bowel sounds. No palpable organomegaly. MUSCULOSKELETAL: No joint swelling or deformity. EXTREMITIES: No cyanosis, clubbing, or pedal edema. NEUROLOGICAL: Gross neurological examination did not reveal any focal deficits. SKIN: No rashes. no petechiae. - Labs CBC & Chem 7: 10/23/21 06:25 10/23/21 06:25 Labs: Abnormal Lab Results - Last 24 Hours (Table) 12/10/21 12/10/21 12/11/21 Range/Units 11:18 16:49 06:25 RBC (3.80-5.40) m/uL Hgb (11.4-16.0) gm/dL Hct (34.0-46.0) % MCV (80.0-100.0) fL APTT 72.8 H 45.4 H 36.6 H (22.0-30.0) sec Creatinine (0.52-1.04) mg/dL 10/23/21 10/23/21 Range/Units 06:25 06:25 RBC 3.10 L (3.80-5.40) m/uL Hgb 10.2 L (11.4-16.0) gm/dL Hct 31.6 L (34.0-46.0) % MCV 102.0 H (80.0-100.0) fL APTT (22.0-30.0) sec Creatinine 1.06 H (0.52-1.04) mg/dL Assessment and Plan Assessment: Bilateral pulmonary embolism Acute severe systolic CHF, cardiomyopathy and ejection fraction 20-25% Moderate mitral regurgitation and tricuspid regurgitation Moderate pulmonary hypertension Troponin leak with no evidence of acute coronary syndrome mild to moderate calories protein malnutrition Chronic diarrhea secondary to microscopic colitis per patient Plan: This is a pleasant 60 years old female who presents with PE and CHF Continue with heparin drip and Lasix Monitor creatinine and electrolytes Aspirin Cardiology and pulmonary team on the case Continue with smaller dose of lisinopril and pulled and beta abilio Labs and medication were reviewed.. Continue same treatment. Continue with symptomatic treatment. Resume home medication. Monitor lytes and vitals. DVT and GI prophylaxis. Further recommendationsas per clinical course of the patient DVT prophylaxis: heparin GI Prophylaxis: Ppi PT/OT: Pending Prognosis is guarded
--- NOTE | 2021-10-23 13:38 | P.PN ---
Subjective Progress Note Date: 10/23/21 Principal diagnosis: Exacerbation of systolic congestive heart failure Is a very pleasant 60-year-old female patient with history of chronic diarrhea, previous bowel resection, severe protein calorie malnutrition. She was just discharged from here on 10/13/2021 following a episode of hypovolemic shock, acute renal failure, dehydration and chronic diarrhea for the past 1-2 years. She did undergo a bowel resection in 2017. This past admission she had undergone EGD and colonoscopy that regards revealed only mild antral gastritis and colonoscopy within normal limits and no colitis or colorectal neoplasia. She presented here to the emergency room early this morning with rather acute episode of orthopnea and shortness of breath. She had not been having able to lay down to sleep without becoming more short of breath. She also felt there is some muscle spasm in her back. Near her right scapula. Chest x-ray reveals evidence of cardiomegaly and pulmonary edema with small pleural effusions consistent with acute heart failure. DT angiogram also found evidence of bert ateral pulmonary emboli. Pleural effusions with pulmonary edema. The lady EKG reveals ST and T wave abnormalities in the lateral leads. A cardiogram reveals severely impaired left and consistent ventricular systolic function with ejection fraction 20-25%. Global hypokinesia. White count 9.2. Hemoglobin 9.1. D-dimer 5.49. Sodium 140. Potassium 3.8. Bicarb 18. Creatinine 1.09. AST 32. ALT 16. Troponin 0.212, 0.211, 0.215. ProBNP 35,000. Herrera virus by PCR not detected. She is seen today in the emergency department. Currently sitting up in bed. Awake and alert in no acute distress. She is fairly comfortable and maintaining O2 saturations in the 90s on room air. She's afebr ile. Hemodynamically stable. The patient is seen today 10/23/2021 in follow-up on the elective care unit. She is currently sitting up in bed. Awake and alert in no acute distress. She is maintaining good O2 saturations in the mid 90s on room air. She's been afebrile. Hemodynamically stable. White count 6.5. Hemoglobin 10.2. Sodium 139. Potassium 3.5. Creatinine 1.06. She remains on a heparin drip. She is on IV diuretics. Objective - Vital Signs Vital signs: Vital Signs Temp 97.3 F L 10/23/21 08:00 Pulse 79 10/23/21 11:59 Resp 16 10/23/21 11:59 BP 103/69 10/23/21 11:59 Pulse Ox 96 10/23/21 11:59 Intake & Output 10/22/21 10/23/21 10/23/21 18:59 06:59 18:59 Intake Total 46.676 130.314 263.92 Output Total 1600 Balance 46.676 130.314 -1336.08 Weight 46.72 kg 46.2 kg 46.2 kg Intake: Intake, IV Titration 46.676 130.314 23.92 Amount Heparin Sod,Pork in 0.45% 46.676 130.314 23.92 NaCl 25,000 unit In 0.45 % NaCl 1 250ml.bag @ 18 UNITS/KG/HR 8.41 mls/hr IV .Q24H [facility] Rx#: [id number] Oral 240 Output: Urine 1600 Other: Voiding Method Toilet Toilet - Exam GENERAL EXAM: Alert, pleasant 60-year-old female, on room air, comfortable in no apparent distress. HEAD: Normocephalic. EYES: Normal reaction of pupils, equal size. NOSE: Clear with pink turbinates. THROAT: No erythema or exudates. NECK: No masses, no JVD. CHEST: No chest wall deformity. LUNGS: Equal air entry with crackles in the bilateral bases. CVS: S1 and S2 normal with no audible murmur, regular rhythm. ABDOMEN: No hepatosplenomegaly, normal bowel sounds, no guarding or rigidity. SPINE: No scoliosis or deformity SKIN: No rashes CENTRAL NERVOUS SYSTEM: No focal deficits, tone is normal in all 4 extremities. EXTREMITIES: There is no peripheral edema. No clubbing, no cyanosis. Peripher al pulses are intact. - Labs CBC & Chem 7: 10/23/21 06:25 10/23/21 06:25 Labs: Abnormal Lab Results - Last 24 Hours (Table) 10/22/21 10/23/21 10/23/21 Range/Units 16:49 06:25 06:25 RBC 3.10 L (3.80-5.40) m/uL Hgb 10.2 L (11.4-16.0) gm/dL Hct 31.6 L (34.0-46.0) % MCV 102.0 H (80.0-100.0) fL APTT 45.4 H 36.6 H (22.0-30.0) sec Creatinine (0.52-1.04) mg/dL 10/23/21 Range/Units 06:25 RBC (3.80-5.40) m/uL Hgb (11.4-16.0) gm/dL Hct (34.0-46.0) % MCV (80.0-100.0) fL APTT (22.0-30.0) sec Creatinine 1.06 H (0.52-1.04) mg/dL Assessment and Plan Assessment: 1 Acute exacerbation of systolic congestive heart failure in a patient found to have severely impaired left ventricular systolic function with ejection fraction 20-25%, severe global hypokinesia, troponin leak. 2 Acute bilateral pulmonary emboli, currently on a heparin drip. 3 Recent discharge for acute renal failure, dehydration, septic shock, chronic diarrhea status post EGD/colonoscopy without significant findings 4 Acute on chronic anemia 5 History of chronic diarrhea 6 Previous bowel resection 7 History of hypertension 8 History of hyperlipidemia 9 History of chronic renal failure, stage III 10 Severe protein calorie malnutrition Plan: The patient was seen and evaluated Currently stable and on room air Continued on a heparin drip, IV diuretics Cardiac catheterization pending per cardiology We will continue to follow I, the cosigning physician, performed a history & physical examination of the patient. Lungs sounds crackles in the bilateral bases. Maintaining good O2 saturations in the 90s on room air. I discussed the assessment and plan of care with my nurse practitioner, Bharati Chow. I attest to the above consultation as dictated by her.
[2021-10-23] MEDS: FUROSEMIDE 10 MG/ML 2 ML VIAL IV SCH ×2 (15:39→17:00)
[2021-10-23] MEDS: ONDANSETRON 4 MG/2 ML VIAL IVP PRN (18:28)
[2021-10-23] MEDS ORDERED: SODIUM CHLORIDE 0.65% NASAL SPRAY 44 ML BTL NASAL PRN (21:22)
[2021-10-23] MEDS: ALPRAZolam 0.25 MG TAB PO SCH (21:23)
[2021-10-24] MEDS: HEPARIN SOD,PORK IN 0.45% NACL 25,000 UNIT in 0.45% NACL 1 250ML.BAG IV SCH (05:30)
[2021-10-24] MEDS: SODIUM CHLORIDE 0.9% 1,000 ML IV SCH (05:31)
[2021-10-24] MEDS: FUROSEMIDE 10 MG/ML 2 ML VIAL IV SCH (05:31)
[2021-10-24 07:33] LABS: Basophils % (A) 0 %; Eosinophils # (A) 0.3 k/uL (0-0.7); Eosinophils % (A) 3 %; HCT 33.3 % (34.0-46.0); HGB 10.5 gm/dL (11.4-16.0); Hypochromasia Moderate; Lymphocytes # (A) 1.6 k/uL (1.0-4.8); Lymphocytes % (A) 19 %; MCH 31.9 pg (25.0-35.0); MCHC 31.5 g/dL (31.0-37.0); MCV 101.1 fL (80.0-100.0); Macrocytosis Slight; Mean Platelet Volume 8.4; Monocytes # (A) 0.3 k/uL (0-1.0); Monocytes % (A) 4 %; Neutrophils # (A) 5.9 k/uL (1.3-7.7); Neutrophils % (A) 71 %; Platelet Count 406 k/uL (150-450); RDW 13.7 % (11.5-15.5); WBC 8.2 k/uL (3.8-10.6)
[2021-10-24 07:43] LABS: Calcium 9.8 mg/dL (8.4-10.2); Magnesium 1.2 mg/dL (1.6-2.3); Potassium 3.5 mmol/L (3.5-5.1)
--- NOTE | 2021-10-24 08:04 | P.PN ---
Subjective Progress Note Date: 10/24/21 Principal diagnosis: Shortness of breath The patient is a 60-year-old female patient with a past medical history significant for mitral valve repair was performed at [facility] and the patient follows with a slide forming machine operator out of the town as an outpatient as well as multiple comorbid conditions including chronic anemia and chronic renal failure who was admitted to the hospital with increasing shortness of breath and she was diagnosed with acute bilateral PE confirmed by computed tomography scan of the chest and also she did have a component of heart failure. She was started on heparin for anticoagulation. She underwent an echocardiogram which revealed impaired LV function was EF of around 20% with evidence off wall motion abnormalities as well as moderate mitral regurgitation with mitral valve ring. The patient was started on Lasix IV as well beside the heparin IV. Her troponin came in to be slightly elevated. The EKG showed sinus rhythm with deep T-wave inversion seems to be global across the 12 leads. She was seen this morning. She stated that she is feeling better indeterminable shortness of breath but she had no chest pain or chest discomfort. She stated that she still not back to her baseline. Hemodynamically she is stable with a soft blood pressure. The kidney function continues to be stable. On examination she is euvolemic and with that being stated I'm going to DC the Aldactone at 25 mg by mouth daily giving her cardiomyopathy and low potassium. Beside that she is on a small dose of JARED inhibitor. She, the lunate beta abilio at this point in view of the marginally low blood pressure and the heart failure exacerbation status. We'll consider that as an outpatient. We need to obtain a copy of her previous medical record from her prior slide forming machine operator to assess if she underwent a heart catheterization recently and also to look at her previous EKG at compare to this one. If the EKG changes are new or the cardiomyopathy are new she need to undergo coronary angiogram. Beside that going to stop the heparin IV and start the patient on oral anticoagulation for the pulmonary embolism. Would monitor the patient for additional 24-hour Objective - Vital Signs Vital signs: Vital Signs Temp 98.2 F 10/24/21 03:14 Pulse 79 10/24/21 03:14 Resp 16 10/24/21 03:14 BP 98/53 10/24/21 05:29 Pulse Ox 95 10/24/21 03:14 Intake & Output 10/23/21 10/24/2121 18:59 06:59 18:59 Intake Total 499.92 173.386 Output Total 1600 Balance -1100.08 173.386 Weight 46.2 kg 46.3 kg Intake: Intake, IV Titration 23.92 173.386 Amount Heparin Sod,Pork in 0.45% 23.92 173.386 NaCl 25,000 unit In 0.45 % NaCl 1 250ml.bag @ 18 UNITS/KG/HR 8.41 mls/hr IV .Q24H [facility] Rx#: [id number] Oral 476 Output: Urine 1600 Other: Voiding Method Toilet Toilet # Voids 3 - Constitutional General appearance: Present: no acute distress - Respiratory Respiratory: bilateral: diminished - Cardiovascular Rhythm: regular Abnormal Heart Sounds: Present: systolic murmur - Labs CBC & Chem 7: 10/24/21 07:05 10/24/21 07:05 Labs: Abnormal Lab Results - Last 24 Hours (Table) 10/23/21 10/23/21 10/23/21 Range/Units 06:25 06:25 15:11 RBC (3.80-5.40) m/uL Hgb (11.4-16.0) gm/dL Hct (34.0-46.0) % MCV (80.0-100.0) fL APTT 36.6 H 48.6 H (22.0-30.0) sec Creatinine 1.06 H (0.52-1.04) mg/dL Glucose (74-99) mg/dL Magnesium (1.6-2.3) mg/dL 10/24/21 10/24/21 Range/Units 07:05 07:05 RBC 3.30 L (3.80-5.40) m/uL Hgb 10.5 L (11.4-16.0) gm/dL Hct 33.3 L (34.0-46.0) % MCV 101.1 H (80.0-100.0) fL APTT (22.0-30.0) sec Creatinine 1.11 H (0.52-1.04) mg/dL Glucose 102 H (74-99) mg/dL Magnesium 1.2 L (1.6-2.3) mg/dL Assessment and Plan Assessment: Assessment #1 shortness of breath related to heart failure as well as pulmonary embolism #2 bilateral pulmonary embolism #3 heart failure exacerbation secondary to heart failure with reduced ejection fraction #4 history of mitral valve repair with residual moderate mitral regurgitation #5 severe cardiomyopathy differential new diagnosis or the patient is known to have cardiomyopathy #5 EKG changes concerning ischemia #6 abnormal troponin Plan #1 DC Lasix IV. The patient is euvolemic #2 start the patient on Aldactone #3 monitor the kidney function including potassium #4 continue the current dose of lisinopril #4 hold on starting the patient on beta abilio in view of the margin a low blood pressure and consider that as an outpatient #5 DC heparin IV and start the patient on oral anticoagulation #6 monitor the patient for additional 24 hours #7 obtain a copy of the previous medical record including an old EKG and old heart catheterization #8 consider coronary angiogram if the cardiomyopathy is new
[2021-10-24] MEDS: PANTOPRAZOLE 40 MG/10 ML VIAL IVP SCH (08:27)
[2021-10-24] MEDS: ATORVASTATIN 10 MG TAB PO SCH (08:27)
[2021-10-24] MEDS: APIXABAN 5 MG TAB PO SCH ×2 (08:27→20:12)
[2021-10-24] MEDS: SPIRONOLACTONE 25 MG TAB PO SCH (08:27)
[2021-10-24] MEDS: ONDANSETRON 4 MG/2 ML VIAL IVP PRN (08:28)
[2021-10-24] MEDS: ASPIRIN 81 MG PO SCH (08:28)
[2021-10-24] MEDS ORDERED: Potassium Replacement Protocol 1 EACH MISC MISCELLANE PRN (08:35)
[2021-10-24] MEDS ORDERED: Magnesium Replacement Protocol 1 EACH MISC MISCELLANE PRN (08:35)
[2021-10-24] MEDS: MAGNESIUM SULFATE-D5W PMX 1 GM in DEXTROSE/WATER 1 100ML.BAG IVPB SCH ×3 (09:42→12:00)
[2021-10-24] MEDS: POTASSIUM CHLORIDE ER 20 MEQ TAB.ER PO SCH (09:43)
--- NOTE | 2021-10-24 10:01 | XR ---
EXAMINATION TYPE: XR chest 1V portable DATE OF EXAM: 10/24/2021 9:19 AM COMPARISON:CT chest from same date of 10/22/2021 CLINICAL INDICATION:Female, 60 years old with history of CHF; [facility], TECHNIQUE: Frontal view of the chest. FINDINGS: Lungs/Pleura: Minimal improvement of bilateral airspace opacities seen on prior. There is no evidence of pleural effusion, focal consolidation, or pneumothorax. Pulmonary vascularity: Unremarkable. Heart/mediastinum: Cardiomediastinal silhouette is unremarkable. Mitral valve repair changes. Musculoskeletal: No acute osseous pathology. Other findings: Midline sternotomy wires are noted and stable. IMPRESSION: Interval improvement/near resolution of airspace opacity seen on prior.
--- NOTE | 2021-10-24 12:24 | P.PN ---
Subjective From records This is a 60-year-old female with past medical history of mitral valve repair 2005 , hypertension,recently admitted with hypovolemic shock, acute renal failure, dehydration, chronic diarrhea, underwent EGD and colonoscopy reportedly mild gastritis with normal colonoscopy, presented to the ER with complaints of worsening shortness of breath that awakened patient from sleep, accompanied by any palpitations. Reported generalized chest pressure when lying flat. He reports yesterday her O2 sat was within normal limits but heart rate averaging 90-100. On admission patient tachycardic heart rate 105, respiratory rate 24, maintaining O2 sats of 99% on room air. Currently maintaining O2 sats of 95% on 2 L nasal cannula. Afebrile normal WBC, hemoglobin 9.4, platelets 331, d-dimer 5.49. Chest CTA reported bilateral lower lobe pulmonary emboli, pleural effusions, and possible CHF. Heparin drip initiated. Chest x-ray reporting c ardiomegaly, pulmonary edema with small pleural effusions, consistent with acute heart failure. ProBNP 35,000. EKG reported normal sinus rhythm, anterior infarct, age undetermined, ST and T-wave abnormality inferior lateral. Elevated troponin 0.2.2, 0.211. Sodium 140, potassium 3.8, chloride 112 bicarb 18 BUN 14, creatinine 1.09-baseline. Coronavirus not detected. Echo currently being completed at bedside. Subjective: 10/23/2021 This is a pleasant 60 years old female who presents with dyspnea and found to have bilateral pulmonary embolism with severely impaired left ventricular function with ejection fraction 20-25%. Also her echocardiogram showing moderate mitral regurgitation with [id number] tricuspid regurgitation Troponin leak was noted by public safety director. Also there was some evidence of pulmonary hypertension with mildly nutrition. Patient is been evaluated by public safety director and turret lathe tender and she is currently on IV Lasix 40 mg twice daily, also she is on heparin drip area Because of her weak heart beta abilio was stopped and lisinopril dose was lowered to 5 mg. Also she was placed on aspirin 81 mg. Today she is pleasant, looks comfortable, mildly tachypneic while she is sitting up in bed. No significant chest pain. No hemoptysis. No significant basal crepitation or like edema on exam. Also patient has been complaining of from chronic diarrhea for times yesterday and it was watery, but this is a chronic for many years as per patient. She underwent EGD by Dr. 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 Walking fine but she eats little bit 10/24/2021 Patient awake alert, walking freely [id number] from the restroom to her bed. No significant dyspnea, no chest pain, no dizziness or weakness. No other new complaints and actually the patient reports improvement. Also no lid swelling or basal crepitation noticed on exam. Hemodynamically and labs are stable when review today. Creatinine is stable at 1.1. IV Lasix was stopped by public safety director and agree. And he states started on Aldactone. Heparin drip was switched to Eliquis 10 mg 7 days and then 5 mg thereafter. Eligibility And Occupancy Interviewer recommended and updated in records for possible cardiac cath if new cardiomyopathy. Find out Co-pay for Eliquis tomorrow Possible discharge in 24-48 hours if she keeps improvement Objective - Vital Signs Vital signs: Vital Signs Temp 97 F L 10/24/21 08:00 Pulse 99 10/24/21 08:00 Resp 16 10/24/21 08:00 BP 105/60 10/24/21 08:00 Pulse Ox 99 10/24/21 08:00 Intake & Output 10/23/21 10/24/21 10/24/21 18:59 06:59 18:59 Intake Total 499.92 173.386 Output Total 1600 Balance -1100.08 173.386 Weight 46.2 kg 46.3 kg Intake: Intake, IV Titration 23.92 173.386 Amount Heparin Sod,Pork in 0.45% 23.92 173.386 NaCl 25,000 unit In 0.45 % NaCl 1 250ml.bag @ 18 UNITS/KG/HR 8.41 mls/hr IV .Q24H [facility] Rx#: [id number] Oral 476 Output: Urine 1600 Other: Voiding Method Toilet Toilet # Voids 3 - Exam -GENERAL: The patient is alert and oriented x3, not in any acute distress. this build HEENT: Pupils are round and equally reacting to light. EOMI. No scleral icterus. No conjunctival pallor. Normocephalic, atraumatic. No pharyngeal erythema. No thyromegaly. CARDIOVASCULAR: S1 and S2 present. No murmurs, rubs, or gallops. PULMONARY: Chest is clear to auscultation, no wheezing or crackles. ABDOMEN: Soft, nontender, nondistended, normoactive bowel sounds. No palpable organomegaly. MUSCULOSKELETAL: No joint swelling or deformity. EXTREMITIES: No cyanosis, clubbing, or pedal edema. NEUROLOGICAL: Gross neurological examination did not reveal any focal deficits. SKIN: No rashes. no petechiae. - Labs CBC & Chem 7: 10/24/21 07:05 10/24/21 07:05 Labs: Abnormal Lab Results - Last 24 Hours (Table) 10/23/21 10/24/21 10/24/21 Range/Units 15:11 07:05 07:05 RBC 3.30 L (3.80-5.40) m/uL Hgb 10.5 L (11.4-16.0) gm/dL Hct 33.3 L (34.0-46.0) % MCV 101.1 H (80.0-100.0) fL APTT 48.6 H (22.0-30.0) sec Creatinine 1.11 H (0.52-1.04) mg/dL Glucose 102 H (74-99) mg/dL Magnesium 1.2 L (1.6-2.3) mg/dL 10/24/21 Range/Units 07:05 RBC (3.80-5.40) m/uL Hgb (11.4-16.0) gm/dL Hct (34.0-46.0) % MCV (80.0-100.0) fL APTT 41.2 H (22.0-30.0) sec Creatinine (0.52-1.04) mg/dL Glucose (74-99) mg/dL Magnesium (1.6-2.3) mg/dL Assessment and Plan Assessment: Bilateral pulmonary embolism Acute severe systolic CHF, cardiomyopathy and ejection fraction 20-25% Moderate mitral regurgitation and tricuspid regurgitation Moderate pulmonary hypertension Troponin leak with no evidence of acute coronary syndrome mild to moderate calories protein malnutrition 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 Aldactone added. Continue with Aspirin Cardiology and pulmonary team on the case Continue with smaller dose of lisinopril and pulled and beta abilio Labs and medication were reviewed.. Continue same treatment. Continue with symptomatic treatment. Resume home medication. Monitor lytes and vitals. DVT and GI prophylaxis. Further recommendationsas per clinical course of the patient DVT prophylaxis: heparin GI Prophylaxis: Ppi PT/OT: Pending
--- NOTE | 2021-10-24 15:11 | P.PN ---
Subjective Progress Note Date: 10/24/21 Principal diagnosis: Acute exacerbation of systolic CHF Is a very pleasant 60-year-old female patient with history of chronic diarrhea, previous bowel resection, severe protein calorie malnutrition. She was just discharged from here on 10/13/2021 following a episode of hypovolemic shock, acute renal failure, dehydration and chronic diarrhea for the past 1-2 years. She did undergo a bowel resection in 2017. This past admission she had undergone EGD and colonoscopy that regards revealed only mild antral gastritis and colonoscopy within normal limits and no colitis or colorectal neoplasia. She presented here to the emergency room early this morning with rather acute episode of orthopnea and shortness of breath. She had not been having able to lay down to sleep without becoming more short of breath. She also felt there is some muscle spasm in her back. Near her right scapula. Chest x-ray reveals evidence of cardiomegaly and pulmonary edema with small pleural effusions consistent with acute heart failure. DT angiogram also found evidence of bilateral pulmonary emboli. Pleural effusions with pulmonary edema. The lady EKG reveals ST and T wave abnormalities in the lateral leads. A cardiogram reveals severely impaired left and consistent ventricular systolic function with ejection fraction 20-25%. Global hypokinesia. White count 9.2. Hemoglobin 9.1. D-dimer 5.49. Sodium 140. Potassium 3.8. Bicarb 18. Creatinine 1.09. AST 32. ALT 16. Troponin 0.212, 0.211, 0.215. ProBNP 35,000. Herrera virus by PCR not detected. She is seen today in the emergency department. Currently sitting up in bed. Awake and alert in no acute distress. She is fairly comfortable and maintaining O2 saturations in the 90s on room air. She's afebrile. Hemodynamically stable. The patient is seen today 10/23/2021 in follow-up on the elective care unit. She is currently sitting up in bed. Awake and alert in no acute distress. She is maintaining good O2 saturations in the mid 90s on room air. She's been afebrile. Hemodynamically stable. White count 6.5. Hemoglobin 10.2. Sodium 139. Potassium 3.5. Creatinine 1.06. She remains on a heparin drip. She is on IV diuretics. On 10/24/2021 patient seen in follow-up on selective care unit, she is awake and alert, she is in no acute distress. She is ambulating about the room, on room air pulse ox is 97-99%, her lung sounds reveal some mild crackles at bilateral bases, she has been diuresed, she is breathing comfortably, follow-up chest x- rays pending for today, she has been started on Eliquis for acute pulmonary emboli. No complaints of chest pain, no worsening dyspnea and no hemoptysis. Today's labs have been reviewed, her white blood cell count is 8.2, hemoglobin is 10.5, electrolytes are unremarkable, BUN is 11, creatinine is 1.1. Follow-up chest x-ray has been reviewed showing interval improvement/near resolution of airspace opacity seen on the prior exam. Objective - Vital Signs Vital signs: Vital Signs Temp 97 F L 10/24/21 08:00 Pulse 93 10/24/21 12:00 Resp 16 10/24/21 12:00 BP 93/57 10/24/21 12:00 Pulse Ox 97 10/24/21 12:00 Intake & Output 10/23/21 10/24/21 10/24/21 18:59 06:59 18:59 Intake Total 499.92 173.386 236 Output Total 1600 Balance -1100.08 173.386 236 Weight 46.2 kg 46.3 kg Intake: Intake, IV Titration 23.92 173.386 Amount Heparin Sod,Pork in 0.45% 23.92 173.386 NaCl 25,000 unit In 0.45 % NaCl 1 250ml.bag @ 18 UNITS/KG/HR 8.41 mls/hr IV .Q24H [facility] Rx#: [id number] Oral 476 236 Output: Urine 1600 Other: Voiding Method Toilet Toilet Toilet # Voids 3 - Exam GENERAL EXAM: Alert, extremely pleasant, 60-year-old female on room air, ambulating in the room, comfortable in no apparent distress. HEAD: Normocephalic/atraumatic. EYES: Normal reaction of pupils, equal size. Conjunctiva pink, sclera white. NOSE: Clear with pink turbinates. THROAT: No erythema or exudates. NECK: No masses, no JVD, no thyroid enlargement, no adenopathy. CHEST: No chest wall deformity. Symmetrical expansion. LUNGS: Equal air entry with no crackles, wheeze, rhonchi or dullness. CVS: Regular rate and rhythm, normal S1 and S2, no gallops, no murmurs, no rubs ABDOMEN: Soft, nontender. No hepatosplenomegaly, normal bowel sounds, no guarding or rigidity. EXTREMITIES: No clubbing, no edema, no cyanosis, 2+ pulses and upper and lower extremities. MUSCULOSKELETAL: Muscle strength and tone normal. SPINE: No scoliosis or deformity SKIN: No rashes CENTRAL NERVOUS SYSTEM: Alert and oriented -3. No focal deficits, tone is normal in all 4 extremities. PSYCHIATRIC: Alert and oriented -3. Appropriate affect. Intact judgment and insight. - Labs CBC & Chem 7: 10/24/21 07:05 10/24/21 07:05 Labs: Abnormal Lab Results - Last 24 Hours (Table) 10/23/21 10/24/21 10/24/21 Range/Units 15:11 07:05 07:05 RBC 3.30 L (3.80-5.40) m/uL Hgb 10.5 L (11.4-16.0) gm/dL Hct 33.3 L (34.0-46.0) % MCV 101.1 H (80.0-100.0) fL APTT 48.6 H (22.0-30.0) sec Creatinine 1.11 H (0.52-1.04) mg/dL Glucose 102 H (74-99) mg/dL Magnesium 1.2 L (1.6-2.3) mg/dL 10/24/21 Range/Units 07:05 RBC (3.80-5.40) m/uL Hgb (11.4-16.0) gm/dL Hct (34.0-46.0) % MCV (80.0-100.0) fL APTT 41.2 H (22.0-30.0) sec Creatinine (0.52-1.04) mg/dL Glucose (74-99) mg/dL Magnesium (1.6-2.3) mg/dL Assessment and Plan Plan: Assessment: #1. Acute exacerbation of systolic CHF, with reduced ejection fraction of 20- 25% #2. Acute bilateral pulmonary emboli, patient has been converted from heparin to Eliquis #3. Acute shortness of breath related to the above, improved #4. Recent hospitalization for septic shock, dehydration, renal failure, chronic diarrhea status post EGD colonoscopy without significant findings #5. Acute on chronic anemia #6. History of mitral valve repair at [facility] several years ago #7. Severe cardiomyopathy #8. Elevated troponins Plan: Patient is breathing has significantly improved Today's chest x-ray shows near complete resolution of previous airspace opacity Patient has been transitioned from heparin to Eliquis for acute pulmonary embolism Hemodynamically stable, breathing is stable, she is maintaining stable O2 saturations on room air Cardiology is following, and possibly planning a heart catheterization From pulmonary perspective patient has remained stable, and can be considered for discharge home once cleared by cardiology I performed a history & physical examination of the patient and discussed their management with my nurse practitioner, Kellee Alcala. I reviewed the nurse practitioner's note and agree with the documented findings and plan of care. Lung sounds are positive for diminished breath sounds throughout the lung addison. The findings and the impression was discussed with the patient. I attest to the documentation by the nurse practitioner. Time with Patient: Less than 30
[2021-10-24] MEDS ORDERED: LOPERAMIDE 2 MG CAP PO PRN (21:16)
[2021-10-24] MEDS: ALPRAZolam 0.25 MG TAB PO SCH (22:28)
[2021-10-25] MEDS: SODIUM CHLORIDE 0.9% 1,000 ML IV SCH (01:22)
[2021-10-25] MEDS: ATORVASTATIN 10 MG TAB PO SCH (09:20)
[2021-10-25] MEDS: SPIRONOLACTONE 25 MG TAB PO SCH (09:21)
[2021-10-25] MEDS: ASPIRIN 81 MG PO SCH (09:21)
[2021-10-25] MEDS: APIXABAN 5 MG TAB PO SCH ×2 (09:21→19:53)
[2021-10-25] MEDS: PANTOPRAZOLE 40 MG/10 ML VIAL IVP SCH (09:21)
--- NOTE | 2021-10-25 15:48 | P.PN ---
Subjective This is a 60-year-old female with a past medical history significant for hypertension, hyperlipidemia, colitis, chronic diarrhea, and mitral valve repair in 2005 at [facility]. Patient follows with Dr. Sheila Lowe in [place], [place]. We have been asked to see the patient in consultation for congestive heart failure. Patient presented to the hospital with a chief complaint of shortness of breath. She has been diagnosed with Acute bilateral PE and acute systolic heart failure exacerbation. Echo revealed impaired LV function was EF around 20% with moderate mitral regurgitation and mitral valve repair. Patient seen and examined this morning. She stated that she is feeling better. She denies chest pain or shortness of breath. She is on Eliquis 10mg BID, lisinopril 2.5mg daily, spironolactone 25mg daily, and atorvastatin 10mg daily, and aspirin 81mg daily. Her blood pressure remains on the low end, and beta abilio has been held at this point. No labs from this morning. BP 90s/50s, HR 78, afebrile, 100% on room air. PHYSICAL EXAM: VITAL SIGNS: Reviewed. GENERAL: Well-developed in no acute distress. HEENT: Neck Supple. No JVD. LUNGS: Respirations even and unlabored. Lungs diminished with bibasilar rales HEART: Regular rate and rhythm. S1 and S2 heard. ABDOMEN: Soft. Nondistended. Nontender. EXTREMITIES: Normal range of motion. No clubbing or cyanosis. Peripheral pulses intact. No lower extremity edema NEUROLOGIC: Awake and alert. Oriented x 3. ASSESSMENT: Shortness of breath Acute bilateral PE Abnormal troponins, likely secondary to above, ACS ruled out Acute systolic congestive heart failure, type unknown History of mitral valve repair in 2005 at [facility] Hypertension Hyperlipidemia History of colitis Chronic diarrhea PLAN: We will obtain records from patient's autographer. Continue current medical regimen. Hold beta abilio due to hypotension Continue Lisinopril. Further recommendations pending patient course Nurse practitioner note has been reviewed by physician. Signing provider agrees with the documented findings, assessment, and plan of care. Objective - Vital Signs Vital signs: Vital Signs Temp 97.6 F 10/25/21 08:00 Pulse 78 10/25/21 08:00 Resp 18 10/25/21 08:00 BP 94/56 10/25/21 08:00 Pulse Ox 99 10/25/21 08:00 Intake & Output 10/24/21 10/25/21 10/25/21 18:59 06:59 18:59 Intake Total 354 720 Balance 354 720 Weight 45.8 kg Intake: Oral 354 720 Other: Voiding Method Toilet Toilet Toilet # Voids 3 # Bowel Movements 2 - Labs CBC & Chem 7: 10/24/21 07:05 10/24/21 07:05
--- NOTE | 2021-10-25 16:30 | P.PN ---
Subjective Progress Note Date: 10/25/21 This is a 60-year-old female with past medical history of mitral valve repair 2005 , hypertension,recently admitted with hypovolemic shock, acute renal failure, dehydration, chronic diarrhea, underwent EGD and colonoscopy reportedly mild gastritis with normal colonoscopy, presented to the ER with complaints of worsening shortness of breath that awakened patient from sleep, accompanied by any palpitations. Reported generalized chest pressure when lying flat. He reports yesterday her O2 sat was within normal limits but heart rate averaging 90-100. On admission patient tachycardic heart rate 105, respiratory rate 24, maintaining O2 sats of 99% on room air. Currently maintaining O2 sats of 95% on 2 L nasal cannula. Afebrile normal WBC, hemoglobin 9.4, platelets 331, d-dimer 5.49. Chest CTA reported bilateral lower lobe pulmonary emboli, pleural effusions, and possible CHF. Heparin drip initiated. Chest x-ray reporting cardiomegaly, pulmonary edema with small pleural effusions, consistent with acute heart failure. ProBNP 35,000. EKG reported normal sinus rhythm, anterior infarct, age undetermined, ST and T-wave abnormality inferior lateral. Elevated troponin 0.2.2, 0.211. Sodium 140, potassium 3.8, chloride 112 bicarb 18 BUN 14, creatinine 1.09-baseline. Coronavirus not detected. Echo currently being completed at bedside. 10/25/2021 on repeat anticoagulated on Eliquis, hemoglobin 10.5. Stools solidifying, tested negative for C. difficile colitis. Denies chest pain, palpitations or shortness of breath. Borderline hypotension with systolic blood pressures in the 90s beta abilio currently on hold. Potential cardiac cath being discussed pending reports from patient's radiology technician, regarding EF of 20- 25%. Objective - Vital Signs Vital signs: Vital Signs Temp 98.0 F 10/25/21 12:00 Pulse 78 10/25/21 14:00 Resp 18 10/25/21 14:00 BP 92/58 10/25/21 12:00 Pulse Ox 100 10/25/21 12:00 Intake & Output 10/24/21 10/25/21 10/25/21 18:59 06:59 18:59 Intake Total 354 720 Balance 354 720 Weight 45.8 kg Intake: Oral 354 720 Other: Voiding Method Toilet Toilet Toilet # Voids 3 # Bowel Movements 2 - Exam - Exam PHYSICAL EXAM: VITAL SIGNS: As above GENERAL: Alert and oriented 3, Sitting up in bed, no acute distress. HEENT: Conjunctivae normal. eyes normal. NECK: Supple, No JVD. CARDIOVASCULAR: S1, S2 regular. No murmur RESPIRATION: Breath sounds diminished in the bases. ABDOMEN: Soft, nontender, nondistended . No guarding. no masses palpable. Positive Bowel sounds heard. LEGS: No edema. no swelling NERVOUS SYSTEM: Cranial N 2-12 grossly normal. No focal deficits. Strength and sensation grossly intact. Skin: Warm and dry no rash - Labs CBC & Chem 7: 10/24/21 07:05 10/24/21 07:05 Assessment and Plan Assessment: Acute bilateral PE, on Eliquis. Acute CHF, systolic dysfunction, EF 20-25% Acute hypoxic respiratory failure secondary to all the above, improved Elevated troponins, ruling out acute coronary syndrome, cardiology following History of mitral valve repair at [facility],2005 Recently admitted with Hypovolemic shock, related to severe dehydration, severe diarrhea, anemia. EGD reported mild antral gastritis, normal colonoscopy. Hypertension hyperlipidemia Chronic renal failure, stage III Anemia of chronic disease Chronic diarrhea, tested negative for C. difficile colitis on prior admission History of bowel resection Family history of colon cancer Severe protein calorie malnutrition, BMI 20.1 Plan continue current medication regime ,monitoring and symptomatic treatment. Anticoagulated on Eliquis. Cardiology obtaining reports from patient's radiology technician regarding significantly low EF and discussing potential cath for further evaluation. Prognosis guarded given multiple complex medical issues. The impression and plan of care has been dictated as directed. : I performed a history and examination of this patient, discussed the same with the dictator. I agree with the dictator's note ,documented as a scribe. Any additional findings or plans will be noted.
--- NOTE | 2021-10-25 17:24 | P.PN ---
Subjective Progress Note Date: 10/25/21 Principal diagnosis: Shortness of breath. Is a very pleasant 60-year-old female patient with history of chronic diarrhea, previous bowel resection, severe protein calorie malnutrition. She was just discharged from here on 10/13/2021 following a episode of hypovolemic shock, acu te renal failure, dehydration and chronic diarrhea for the past 1-2 years. She did undergo a bowel resection in 2017. This past admission she had undergone EGD and colonoscopy that regards revealed only mild antral gastritis and colonoscopy within normal limits and no colitis or colorectal neoplasia. She presented here to the emergency room early this morning with rather acute episode of orthopnea and shortness of breath. She had not been having able to lay down to sleep without becoming more short of breath. She also felt there is some muscle spasm in her back. Near her right scapula. Chest x-ray reveals evidence of cardiomegaly and pulmonary edema with small pleural effusions consis tent with acute heart failure. DT angiogram also found evidence of bilateral pulmonary emboli. Pleural effusions with pulmonary edema. The lady EKG reveals ST and T wave abnormalities in the lateral leads. A cardiogram reveals severely impaired left and consistent ventricular systolic function with ejection fraction 20-25%. Global hypokinesia. White count 9.2. Hemoglobin 9.1. D- dimer 5.49. Sodium 140. Potassium 3.8. Bicarb 18. Creatinine 1.09. AST 32. ALT 16. Troponin 0.212, 0.211, 0.215. ProBNP 35,000. Herrera virus by PCR not detected. She is seen today in the emergency department. Currently sitting up in bed. Awake and alert in no acute distress. She is fairly comfortable and maintaining O2 saturations in the 90s on room air. She's afebrile. Hemodynamically stable. The patient is seen today 10/23/2021 in follow-up on the elective care unit. She is currently sitting up in bed. Awake and alert in no acute distress. She is maintaining good O2 saturations in the mid 90s on room air. She's been afebrile. Hemodynamically stable. White count 6.5. Hemoglobin 10.2. Sodium 139. Potassium 3.5. Creatinine 1.06. She remains on a heparin drip. She is on IV diuretics. On 10/24/2021 patient seen in follow-up on selective care unit, she is awake and alert, she is in no acute distress. She is ambulating about the room, on room air pulse ox is 97-99%, her lung sounds reveal some mild crackles at bilateral bases, she has been diuresed, she is breathing comfortably, follow-up chest x- rays pending for today, she has been started on Eliquis for acute pulmonary emboli. No complaints of chest pain, no worsening dyspnea and no hemoptysis. Today's labs have been reviewed, her white blood cell count is 8.2, hemoglobin is 10.5, electrolytes are unremarkable, BUN is 11, creatinine is 1.1. Follow-up chest x-ray has been reviewed showing interval improvement/near resolution of airspace opacity seen on the prior exam. Progress note dated 10/25/2021. 60-year-old female, who is again seen in room 359 patch asthma with a diagnosis of acute exacerbation of systolic CHF, poor ejection fraction of 20-25%, and acute bilateral pulmonary emboli. Currently, the patient is on room air. The patient's heparin has been discontinued in favor of Eliquis. She has a recent hospitalization for septic shock, dehydration, and renal failure. She has a history of mitral valve repair at [facility], several years ago. Laboratory data from the includes a magnesium level of 2.2. Chest x-ray from October 24, shows interval improvement and/or near resolution of airspace opacity seen on prior x-rays. Objective - Vital Signs Vital signs: Vital Signs Temp 98.0 F 10/25/21 12:00 Pulse 78 10/25/21 14:00 Resp 18 10/25/21 14:00 BP 92/58 10/25/21 12:00 Pulse Ox 100 10/25/21 12:00 Intake & Output 10/24/21 10/25/21 10/25/21 18:59 06:59 18:59 Intake Total 354 720 Balance 354 720 Weight 45.8 kg Intake: Oral 354 720 Other: Voiding Method Toilet Toilet Toilet # Voids 3 # Bowel Movements 2 - Exam No acute distress, oriented 3. Currently not on any supplemental oxygen. HEENT examination is grossly unremarkable. Neck supple. Full range of motion. No adenopathy thyromegaly or neck vein distention. Cardiovascular examination reveals regular rhythm rate. S1-S2 normal. No S3 or S4. No discernible murmur noted. Heart rate 70 bpm. Lungs reveal minimal bibasilar crackles. No wheezes or rhonchi. Breath sounds equal bilaterally. Abdomen soft bowel sounds are heard. No masses or tenderness. Extremities are intact. No cyanosis clubbing or edema. Skin is without rash or lesion. Neurologic examination is brief but nonfocal. - Labs CBC & Chem 7: 10/24/21 07:05 10/24/21 07:05 Assessment and Plan Assessment: Acute exacerbation of systolic CHF. Cardiomyopathy, with ejection fraction of 20-25%. Acute bilateral pulmonary emboli, currently on Eliquis. Recent hospitalization for septic shock, dehydration, renal failure, and chronic diarrhea. Acute on chronic anemia. History of mitral valve repair. [facility]. Elevated troponins. Plan: Plan dated 10/25/2021. The patient's currently not on any supplemental oxygen. Her heparin has been discontinued in favor of Eliquis. We will continue to follow make recommendations where appropriate. Cardiology is following in potentially considering a heart catheterization. From the pulmonary standpoint, the patient's very stable. We will continue to follow make recommendations where appropriate. Prognosis is guarded. Time with Patient: Less than 30
[2021-10-25] MEDS: ALPRAZolam 0.25 MG TAB PO SCH (22:43)
[2021-10-26] MEDS: SODIUM CHLORIDE 0.9% 1,000 ML IV SCH (00:42)
[2021-10-26 06:04] LABS: Basophils % (A) 1 %; Eosinophils # (A) 0.3 k/uL (0-0.7); Eosinophils % (A) 5 %; HCT 31.7 % (34.0-46.0); Hypochromasia Moderate; Lymphocytes # (A) 1.7 k/uL (1.0-4.8); Lymphocytes % (A) 27 %; MCH 31.8 pg (25.0-35.0); MCHC 31.4 g/dL (31.0-37.0); MCV 101.1 fL (80.0-100.0); Macrocytosis Slight; Mean Platelet Volume 7.4; Monocytes # (A) 0.4 k/uL (0-1.0); Monocytes % (A) 6 %; Neutrophils # (A) 3.6 k/uL (1.3-7.7); Neutrophils % (A) 58 %; Platelet Count 434 k/uL (150-450); RBC 3.13 m/uL (3.80-5.40); RDW 13.6 % (11.5-15.5); WBC 6.3 k/uL (3.8-10.6)
[2021-10-26 06:20] LABS: Calcium 10.1 mg/dL (8.4-10.2); Potassium 4.9 mmol/L (3.5-5.1)
[2021-10-26] MEDS ORDERED: ATORVASTATIN 10 MG TAB PO SCH (09:00)
[2021-10-26] MEDS: ATORVASTATIN 40 MG TAB PO SCH (09:44)
[2021-10-26] MEDS: METOPROLOL TARTRATE 12.5 MG TAB PO SCH ×2 (09:44→21:34)
[2021-10-26] MEDS: SPIRONOLACTONE 25 MG TAB PO SCH (09:44)
[2021-10-26] MEDS: ASPIRIN 81 MG PO SCH (09:44)
[2021-10-26] MEDS: PANTOPRAZOLE 40 MG/10 ML VIAL IVP SCH ×2 (09:45→21:34)
[2021-10-26] MEDS: APIXABAN 5 MG TAB PO SCH ×2 (09:45→21:34)
--- NOTE | 2021-10-26 12:00 | P.PN ---
Subjective Progress Note Date: 10/26/21 Principal diagnosis: Shortness of breath. Is a very pleasant 60-year-old female patient with history of chronic diarrhea, previous bowel resection, severe protein calorie malnutrition. She was just discharged from here on 10/13/2021 following a episode of hypovolemic shock, acu te renal failure, dehydration and chronic diarrhea for the past 1-2 years. She did undergo a bowel resection in 2017. This past admission she had undergone EGD and colonoscopy that regards revealed only mild antral gastritis and colonoscopy within normal limits and no colitis or colorectal neoplasia. She presented here to the emergency room early this morning with rather acute episode of orthopnea and shortness of breath. She had not been having able to lay down to sleep without becoming more short of breath. She also felt there is some muscle spasm in her back. Near her right scapula. Chest x-ray reveals evidence of cardiomegaly and pulmonary edema with small pleural effusions consis tent with acute heart failure. DT angiogram also found evidence of bilateral pulmonary emboli. Pleural effusions with pulmonary edema. The lady EKG reveals ST and T wave abnormalities in the lateral leads. A cardiogram reveals severely impaired left and consistent ventricular systolic function with ejection fraction 20-25%. Global hypokinesia. White count 9.2. Hemoglobin 9.1. D- dimer 5.49. Sodium 140. Potassium 3.8. Bicarb 18. Creatinine 1.09. AST 32. ALT 16. Troponin 0.212, 0.211, 0.215. ProBNP 35,000. Herrera virus by PCR not detected. She is seen today in the emergency department. Currently sitting up in bed. Awake and alert in no acute distress. She is fairly comfortable and maintaining O2 saturations in the 90s on room air. She's afebrile. Hemodynamically stable. The patient is seen today 10/23/2021 in follow-up on the elective care unit. She is currently sitting up in bed. Awake and alert in no acute distress. She is maintaining good O2 saturations in the mid 90s on room air. She's been afebrile. Hemodynamically stable. White count 6.5. Hemoglobin 10.2. Sodium 139. Potassium 3.5. Creatinine 1.06. She remains on a heparin drip. She is on IV diuretics. On 10/24/2021 patient seen in follow-up on selective care unit, she is awake and alert, she is in no acute distress. She is ambulating about the room, on room air pulse ox is 97-99%, her lung sounds reveal some mild crackles at bilateral bases, she has been diuresed, she is breathing comfortably, follow-up chest x- rays pending for today, she has been started on Eliquis for acute pulmonary emboli. No complaints of chest pain, no worsening dyspnea and no hemoptysis. Today's labs have been reviewed, her white blood cell count is 8.2, hemoglobin is 10.5, electrolytes are unremarkable, BUN is 11, creatinine is 1.1. Follow-up chest x-ray has been reviewed showing interval improvement/near resolution of airspace opacity seen on the prior exam. Progress note dated 10/25/2021. 60-year-old female, who is again seen in room 359 patch [facility] with a diagnosis of acute exacerbation of systolic CHF, poor ejection fraction of 20-25%, and acute bilateral pulmonary emboli. Currently, the patient is on room air. The patient's heparin has been discontinued in favor of Eliquis. She has a recent hospitalization for septic shock, dehydration, and renal failure. She has a history of mitral valve repair at [facility], several years ago. Laboratory data from the includes a magnesium level of 2.2. Chest x-ray from October 24, shows interval improvement and/or near resolution of airspace opacity seen on prior x-rays. Progress note dated 10/26/2021. 60-year-old female, who is seen again in room 359. The patient's doing relatively well. The patient's currently not receiving any IV fluids, and is currently not receiving any supplemental oxygen. She is a diagnosis of acute exacerbation of systolic CHF, with a poor ejection fraction, of between 20-25%, and acute bilateral pulmonary emboli. The patient has a prior history of mitral valve repair at [facility] a few years back. Again, clinically, she's doing well. She denies any chest pain, and she denies shortness of breath. Laboratory data includes a white count of 6.3, hemoglobin 10, hematocrit 31.7, and a platelet count of 434,000. Sodium 135, potassium 4.9, chlorides 103, CO2 26, anion gap normal, BUN 12, and creatinine 1.02. No recent chest x-ray to review. Objective - Vital Signs Vital signs: Vital Signs Temp 97.6 F 10/26/21 08:00 Pulse 82 10/26/21 08:00 Resp 17 10/26/21 08:00 BP 94/64 10/26/21 08:00 Pulse Ox 99 10/26/21 08:00 Intake & Output 10/25/21 10/26/21 10/26/21 18:59 06:59 18:59 Intake Total 838 240 Balance 838 240 Weight 46.4 kg 46.4 kg Intake: Oral 838 240 Other: Voiding Method Toilet Toilet Toilet # Voids 4 1 # Bowel Movements 3 1 - Exam No acute distress, oriented 3. Currently not on any supplemental oxygen. Room air saturation 99%. HEENT examination is grossly unremarkable. Neck supple. Full range of motion. No adenopathy thyromegaly or neck vein distention. Cardiovascular examination reveals regular rhythm rate. S1-S2 normal. No S3 or S4. No discernible murmur noted. Heart rate 82 bpm. Lungs reveal minimal bibasilar crackles. No wheezes or rhonchi. Breath sounds equal bilaterally. Abdomen soft bowel sounds are heard. No masses or tenderness. Extremities are intact. No cyanosis clubbing or edema. Skin is without rash or lesion. Neurologic examination is brief but nonfocal. - Labs CBC & Chem 7: 10/26/21 05:09 10/26/21 05:09 Labs: Abnormal Lab Results - Last 24 Hours (Table) 10/26/21 10/26/21 Range/Units 05:09 05:09 RBC 3.13 L (3.80-5.40) m/uL Hgb 10.0 L (11.4-16.0) gm/dL Hct 31.7 L (34.0-46.0) % MCV 101.1 H (80.0-100.0) fL Sodium 135 L (137-145) mmol/L Assessment and Plan Assessment: Acute exacerbation of systolic CHF. Cardiomyopathy, with ejection fraction of 20-25%. Acute bilateral pulmonary emboli, currently on Eliquis. Recent hospitalization for septic shock, dehydration, renal failure, and chronic diarrhea. Acute on chronic anemia. History of mitral valve repair. [facility]. Elevated troponins. Plan: Plan dated 10/25/2021. The patient's currently not on any supplemental oxygen. Her heparin has been discontinued in favor of Eliquis. We will continue to follow make recommendati ons where appropriate. Cardiology is following in potentially considering a heart catheterization. From the pulmonary standpoint, the patient's very stable. We will continue to follow make recommendations where appropriate. Prognosis is guarded. Plan dated 10/26/2021. Currently, the patient's very stable. Her heparin has been discontinued and she is currently on Eliquis. She's not requiring any supplemental oxygen, she's not receiving any IV fluids. From the pulmonary standpoint, the patient stable and could be discharged. No additional recommendations are made. We will continue to follow this patient should she not be discharged. Time with Patient: Less than 30
--- NOTE | 2021-10-26 12:06 | PN ---
PROGRESS NOTE Mrs. Carreno is a 60-year-old female with history of mitral valve repair, history of hyperlipidemia and hypertension who presented with symptoms of progressive dyspnea, evidence of congestive heart failure and pulmonary embolism. She was anticoagulated. Her echocardiogram revealed severely impaired left ventricular systolic function with segmental wall motion abnormality, new since 2017. She is feeling better overall. She is denying any chest pain. She denies any dizziness or palpitations. Her breathing overall has improved compared to her admission. She continues to be anticoagulated on Eliquis 10 mg twice a day. She is on aspirin 81 mg daily, Lipitor 10 mg daily, lisinopril 2.5 mg daily and spironolactone 25 mg daily. PHYSICAL EXAMINATION: Blood pressure is running in the 110s with a heart rate in the 90s. Lungs clear. Heart: Regular rate and rhythm. S1, S2. No S3. No rub appreciated. Abdomen soft, non-tender. Extremities no edema. LAB DATA: Lab data revealed BUN and creatinine of 12 and 1.02, potassium 4.9, hemoglobin of 10. IMPRESSION: 1. Congestive heart failure with cardiomyopathy, new since 2017, etiology unclear. Patient had segmental wall motion abnormality on the echocardiogram, raising the possibility of ischemic heart disease, although she has no history of coronary artery disease in the past. Other possibility could be worsened by the pulmonary embolism and the hypoxemia. 2. Pulmonary embolism. 3. Status post mitral valve repair. 4. Hyperlipidemia. RECOMMENDATIONS: I will add a low-dose beta abilio, increase her level of activity. If she remains stable by tomorrow, she may be able to be discharged home. Patient will need further evaluation as an outpatient for her cardiomyopathy and to make a decision if coronary angiography or noninvasive testing will be needed. Patient would like to follow up with Dr. Garcia in [facility] because it is closer to home. She will be scheduled to be seen by Dr. Garcia in one week. If she remains stable, I am hoping she will be able to be discharged home in 24 to 48 hours. MMODL / IJN: [id number] /
--- NOTE | 2021-10-26 15:11 | P.PN ---
Subjective Progress Note Date: 10/26/21 This is a 60-year-old female with past medical history of mitral valve repair 2005 , hypertension,recently admitted with hypovolemic shock, acute renal failure, dehydration, chronic diarrhea, underwent EGD and colonoscopy reportedly mild gastritis with normal colonoscopy, presented to the ER with complaints of worsening shortness of breath that awakened patient from sleep, accompanied by any palpitations. Reported generalized chest pressure when lying flat. He reports yesterday her O2 sat was within normal limits but heart rate averaging 90-100. On admission patient tachycardic heart rate 105, respiratory rate 24, maintaining O2 sats of 99% on room air. Currently maintaining O2 sats of 95% on 2 L nasal cannula. Afebrile normal WBC, hemoglobin 9.4, platelets 331, d-dimer 5.49. Chest CTA reported bilateral lower lobe pulmonary emboli, pleural effusions, and possible CHF. Heparin drip initiated. Chest x-ray reporting cardiomegaly, pulmonary edema with small pleural effusions, consistent with acute heart failure. ProBNP 35,000. EKG reported normal sinus rhythm, anterior infarct, age undetermined, ST and T-wave abnormality inferior lateral. Elevated troponin 0.2.2, 0.211. Sodium 140, potassium 3.8, chloride 112 bicarb 18 BUN 14, creatinine 1.09-baseline. Coronavirus not detected. Echo currently being completed at bedside. 10/25/2021 on repeat anticoagulated on Eliquis, hemoglobin 10.5. Stools solidifying, tested negative for C. difficile colitis. Denies chest pain, palpitations or shortness of breath. Borderline hypotension with systolic blood pressures in the 90s beta abilio currently on hold. Potential cardiac cath being discussed pending reports from patient's mallet and die cutter, regarding EF of 20- 25%. 10/26/2021 primary reports obtained from patient's own mallet and die cutter reporting normal EF back from 2017. Borderline hypotension. Beta abilio added to med regimen. Feels better, tolerating exertion. Denies chest pain, palpitations or shortness of breath. Objective - Vital Signs Vital signs: Vital Signs Temp 97.6 F 10/26/21 08:00 Pulse 82 10/26/21 08:00 Resp 17 10/26/21 08:00 BP 94/64 10/26/21 08:00 Pulse Ox 99 10/26/21 08:00 Intake & Output 10/25/21 10/26/21 10/26/21 18:59 06:59 18:59 Intake Total 838 480 Balance 838 480 Weight 46.4 kg 46.4 kg Intake: Oral 838 480 Other: Voiding Method Toilet Toilet Toilet # Voids 4 1 # Bowel Movements 3 1 - Exam - Exam PHYSICAL EXAM: VITAL SIGNS: As above GENERAL: Alert and oriented 3, Sitting up in bed, no acute distress. HEENT: Conjunctivae normal. eyes normal. NECK: Supple, No JVD. CARDIOVASCULAR: S1, S2 regular. No murmur RESPIRATION: Breath sounds diminished in the bases with fine bibasilar crackles ABDOMEN: Soft, nontender, nondistended . No guarding. no masses palpable. Positive Bowel sounds heard. LEGS: No edema. no swelling NERVOUS SYSTEM: Cranial N 2-12 grossly normal. No focal deficits. Strength and sensation grossly intact. Skin: Warm and dry no rash - Labs CBC & Chem 7: 10/26/21 05:09 10/26/21 05:09 Labs: Abnormal Lab Results - Last 24 Hours (Table) 10/26/21 10/26/21 Range/Units 05:09 05:09 RBC 3.13 L (3.80-5.40) m/uL Hgb 10.0 L (11.4-16.0) gm/dL Hct 31.7 L (34.0-46.0) % MCV 101.1 H (80.0-100.0) fL Sodium 135 L (137-145) mmol/L Assessment and Plan Assessment: Acute bilateral PE, on Eliquis. Acute CHF, systolic dysfunction, EF 20-25%, etiology unclear Cardiomyopathy, EF 20-25%, possibly ischemic as prior echo in 2017 reported normal LV function Acute hypoxic respiratory failure secondary to all the above, improved Elevated troponins, ruling out acute coronary syndrome, cardiology following History of mitral valve repair at [facility],2005 Recently admitted with Hypovolemic shock, related to severe dehydration, severe diarrhea, anemia. EGD reported mild antral gastritis, normal colonoscopy. Hypertension hyperlipidemia Chronic renal failure, stage III Anemia of chronic disease Chronic diarrhea, tested negative for C. difficile colitis on prior admission History of bowel resection Family history of colon cancer Severe protein calorie malnutrition, BMI 20.1 Plan continue current medication regime ,monitoring and symptomatic treatment. Beta abilio added to med regimen. Continue anticoagulation with Eliquis. Patient wishes to transfer to local cardiology group -Dr. Garcia. Increase ambulation as tolerated. Cardiology requesting patient be monitored overnight. Discharge planning in progress for tomorrow pending cardiology final DC recommendations and clearance. The impression and plan of care has been dictated as directed. : I performed a history and examination of this patient, discussed the same with the dictator. I agree with the dictator's note ,documented as a scribe. Any additional findings or plans will be noted.
[2021-10-26] MEDS: ALPRAZolam 0.25 MG TAB PO SCH (21:34)
[2021-10-27 06:20] LABS: Calcium 11.2 mg/dL (8.4-10.2); Potassium 4.9 mmol/L (3.5-5.1)
[2021-10-27] MEDS: SODIUM CHLORIDE 0.9% 1,000 ML IV SCH (06:37)
[2021-10-27] MEDS: ATORVASTATIN 40 MG TAB PO SCH (09:06)
[2021-10-27] MEDS: ASPIRIN 81 MG PO SCH (09:06)
[2021-10-27] MEDS: SPIRONOLACTONE 25 MG TAB PO SCH (09:06)
[2021-10-27] MEDS: APIXABAN 5 MG TAB PO SCH (09:06)
[2021-10-27] MEDS: PANTOPRAZOLE 40 MG/10 ML VIAL IVP SCH (09:06)
[2021-10-27] MEDS: METOPROLOL TARTRATE 12.5 MG TAB PO SCH (09:07)
[2021-10-27 12:57] VITALS: BP 100/70; PULSE 81; RESP 18; TEMP 98.2
--- NOTE | 2021-10-27 13:15 | P.PN ---
Subjective This is a 60-year-old female with a past medical history significant for hypertension, hyperlipidemia, colitis, chronic diarrhea, and mitral valve repair in 2005 at [facility]. Patient follows with Dr. Sheila Lowe in [place], [place]. We have been asked to see the patient in consultation for congestive heart failure. Patient presented to the hospital with a chief complaint of shortness of breath. She has been diagnosed with Acute bilateral PE and acute systolic heart failure exacerbation. Echo revealed impaired LV function was EF around 20% with moderate mitral regurgitation and mitral valve repair, this is new from 2017 from her respiratory coordinator records. Patient seen and examined this morning. She is feeling well. She denies chest pain or shortness of breath. She is on Eliquis 10mg BID, lisinopril 2.5mg daily, metoprolol tartrate 12.5mg BID, spironolactone 25mg daily, and atorvastatin 10mg daily, and aspirin 81mg daily. She is in sinus mechanism HR 60s-80s. Sodium 134, potassium 4.9, BUN 18, serum creatinine 1.2. PHYSICAL EXAM: VITAL SIGNS: Reviewed. GENERAL: Well-developed in no acute distress. HEENT: Neck Supple. No JVD. LUNGS: Respirations even and unlabored. Lungs diminished with bibasilar rales HEART: Regular rate and rhythm. S1 and S2 heard. ABDOMEN: Soft. Nondistended. Nontender. EXTREMITIES: Normal range of motion. No clubbing or cyanosis. Peripheral pulses intact. No lower extremity edema NEUROLOGIC: Awake and alert. Oriented x 3. ASSESSMENT: Shortness of breath Acute bilateral PE Abnormal troponins, likely secondary to above, ACS ruled out Acute systolic congestive heart failure, etiology unclear at this time. Patient had segmental wall motion abnormalities on echo, raising the possibility of ischemic heart disease, she was no history of coronary artery disease, possibly could be worsened by pulmonary embolism and hypoxemia History of mitral valve repair in 2005 at [facility] Hypertension Hyperlipidemia History of colitis Chronic diarrhea PLAN: From cardiology perspective, patient is stable for discharge home today with close follow up with Dr. Garcia Will check BMP next week as outpatient Continue current medical regimen. Patient has an appointment with Dr. Garcia on 11/01/2020 at 3:00PM Nurse practitioner note has been reviewed by physician. Signing provider agrees with the documented findings, assessment, and plan of care. Objective - Vital Signs Vital signs: Vital Signs Temp 98.2 F 10/27/21 12:54 Pulse 81 10/27/21 12:54 Resp 18 10/27/21 12:54 BP 100/70 10/27/21 12:54 Pulse Ox 95 10/27/21 12:54 Intake & Output 10/26/21 10/27/21 10/27/21 18:59 06:59 18:59 Intake Total 900 480 Balance 900 480 Weight 46.4 kg 45 kg Intake: Oral 900 480 Other: Voiding Method Toilet Toilet Toilet # Voids 1 # Bowel Movements 1 - Labs CBC & Chem 7: 10/26/21 05:09 10/27/21 05:32 Labs: Abnormal Lab Results - Last 24 Hours (Table) 10/27/21 Range/Units 05:32 Sodium 134 L (137-145) mmol/L BUN 18 H (7-17) mg/dL Creatinine 1.26 H (0.52-1.04) mg/dL Calcium 11.2 H (8.4-10.2) mg/dL
--- NOTE | 2021-10-27 14:34 | P.PN ---
Subjective Progress Note Date: 10/27/21 Principal diagnosis: Shortness of breath. Is a very pleasant 60-year-old female patient with history of chronic diarrhea, previous bowel resection, severe protein calorie malnutrition. She was just discharged from here on 10/13/2021 following a episode of hypovolemic shock, acu te renal failure, dehydration and chronic diarrhea for the past 1-2 years. She did undergo a bowel resection in 2017. This past admission she had undergone EGD and colonoscopy that regards revealed only mild antral gastritis and colonoscopy within normal limits and no colitis or colorectal neoplasia. She presented here to the emergency room early this morning with rather acute episode of orthopnea and shortness of breath. She had not been having able to lay down to sleep without becoming more short of breath. She also felt there is some muscle spasm in her back. Near her right scapula. Chest x-ray reveals evidence of cardiomegaly and pulmonary edema with small pleural effusions consis tent with acute heart failure. DT angiogram also found evidence of bilateral pulmonary emboli. Pleural effusions with pulmonary edema. The lady EKG reveals ST and T wave abnormalities in the lateral leads. A cardiogram reveals severely impaired left and consistent ventricular systolic function with ejection fraction 20-25%. Global hypokinesia. White count 9.2. Hemoglobin 9.1. D- dimer 5.49. Sodium 140. Potassium 3.8. Bicarb 18. Creatinine 1.09. AST 32. ALT 16. Troponin 0.212, 0.211, 0.215. ProBNP 35,000. Herrera virus by PCR not detected. She is seen today in the emergency department. Currently sitting up in bed. Awake and alert in no acute distress. She is fairly comfortable and maintaining O2 saturations in the 90s on room air. She's afebrile. Hemodynamically stable. The patient is seen today 10/23/2021 in follow-up on the elective care unit. She is currently sitting up in bed. Awake and alert in no acute distress. She is maintaining good O2 saturations in the mid 90s on room air. She's been afebrile. Hemodynamically stable. White count 6.5. Hemoglobin 10.2. Sodium 139. Potassium 3.5. Creatinine 1.06. She remains on a heparin drip. She is on IV diuretics. On 10/24/2021 patient seen in follow-up on selective care unit, she is awake and alert, she is in no acute distress. She is ambulating about the room, on room air pulse ox is 97-99%, her lung sounds reveal some mild crackles at bilateral bases, she has been diuresed, she is breathing comfortably, follow-up chest x- rays pending for today, she has been started on Eliquis for acute pulmonary emboli. No complaints of chest pain, no worsening dyspnea and no hemoptysis. Today's labs have been reviewed, her white blood cell count is 8.2, hemoglobin is 10.5, electrolytes are unremarkable, BUN is 11, creatinine is 1.1. Follow-up chest x-ray has been reviewed showing interval improvement/near resolution of airspace opacity seen on the prior exam. Progress note dated 10/25/2021. 60-year-old female, who is again seen in room [facility] with a diagnosis of acute exacerbation of systolic CHF, poor ejection fraction of 20-25%, and acute bilateral pulmonary emboli. Currently, the patient is on room air. The patient's heparin has been discontinued in favor of Eliquis. She has a recent hospitalization for septic shock, dehydration, and renal failure. She has a history of mitral valve repair at [facility], several years ago. Laboratory data from the includes a magnesium level of 2.2. Chest x-ray from October 24, shows interval improvement and/or near resolution of airspace opacity seen on prior x-rays. Progress note dated 10/26/2021. 60-year-old female, who is seen again in room 359. The patient's doing relatively well. The patient's currently not receiving any IV fluids, and is currently not receiving any supplemental oxygen. She is a diagnosis of acute exacerbation of systolic CHF, with a poor ejection fraction, of between 20-25%, and acute bilateral pulmonary emboli. The patient has a prior history of mitral valve repair at [facility] a few years back. Again, clinically, she's doing well. She denies any chest pain, and she denies shortness of breath. Laboratory data includes a white count of 6.3, hemoglobin 10, hematocrit 31.7, and a platelet count of 434,000. Sodium 135, potassium 4.9, chlorides 103, CO2 26, anion gap normal, BUN 12, and creatinine 1.02. No recent chest x-ray to review. Progress note dated 10/27/2021. 60-year-old female, again seen in room 359. The patient's doing well. She's on room air. She's not receiving any IV fluids. The some Tylenol, the patient could be discharged. The patient will see one of the document control specialist next week. The patient did not have a heart catheterization. Apparently that will be discussed at a later date. The patient is feeling well, without shortness barb ath, or chest pain. She denies any cough or phlegm production. Labs today include a sodium 134, potassium 4.9, chlorides 103, CO2 22, anion gap 9, BUN 18, and creatinine 1.26. The patient's calcium is 11.2. Objective - Vital Signs Vital signs: Vital Signs Temp 98.2 F 10/27/21 12:54 Pulse 81 10/27/21 12:54 Resp 18 10/27/21 12:54 BP 100/70 10/27/21 12:54 Pulse Ox 95 10/27/21 12:54 Intake & Output 10/26/21 10/27/21 10/27/21 18:59 06:59 18:59 Intake Total 900 480 Balance 900 480 Weight 46.4 kg 45 kg Intake: Oral 900 480 Other: Voiding Method Toilet Toilet Toilet # Voids 1 # Bowel Movements 1 - Exam No acute distress, oriented 3. Currently not on any supplemental oxygen. Room air saturation 96%. HEENT examination is grossly unremarkable. Neck supple. Full range of motion. No adenopathy thyromegaly or neck vein distention. Cardiovascular examination reveals regular rhythm rate. S1-S2 normal. No S3 or S4. No discernible murmur noted. Heart rate 81 bpm. Lungs reveal minimal bibasilar crackles. No wheezes or rhonchi. Breath sounds equal bilaterally. Abdomen soft bowel sounds are heard. No masses or tenderness. Extremities are intact. No cyanosis clubbing or edema. Skin is without rash or lesion. Neurologic examination is brief but nonfocal. - Labs CBC & Chem 7: 10/26/21 05:09 10/27/21 05:32 Labs: Abnormal Lab Results - Last 24 Hours (Table) 10/27/21 Range/Units 05:32 Sodium 134 L (137-145) mmol/L BUN 18 H (7-17) mg/dL Creatinine 1.26 H (0.52-1.04) mg/dL Calcium 11.2 H (8.4-10.2) mg/dL Assessment and Plan Assessment: Acute exacerbation of systolic CHF. Cardiomyopathy, with ejection fraction of 20-25%. Acute bilateral pulmonary emboli, currently on Eliquis. Recent hospitalization for septic shock, dehydration, renal failure, and chronic diarrhea. Acute on chronic anemia. History of mitral valve repair. [facility]. Elevated troponins. Plan: Plan dated 10/25/2021. The patient's currently not on any supplemental oxygen. Her heparin has been discontinued in favor of Eliquis. We will continue to follow make recommendations where appropriate. Cardiology is following in potentially considering a heart catheterization. From the pulmonary standpoint, the patient's very stable. We will continue to follow make recommendations where appropriate. Prognosis is guarded. Plan dated 10/26/2021. Currently, the patient's very stable. Her heparin has been discontinued and she is currently on Eliquis. She's not requiring any supplemental oxygen, she's not receiving any IV fluids. From the pulmonary standpoint, the patient stable and could be discharged. No additional recommendations are made. We will continue to follow this patient should she not be discharged. Plan dated 10/27/2021. Currently, the patient's very stable. She's not receiving any supplemental oxygen, or IV fluids. The patient will not have a cardiac catheterization on this admission. She does have an appointment to see cardiology in the near future. The patient will be seen by my partner in follow-up. The patient does have a diagnosis of pulmonary embolism. Additional recommendations and suggestions are forthcoming. Prognosis is guarded. Should she not be discharged, we will continue to follow. Time with Patient: Less than 30
--- NOTE | 2021-10-29 17:51 | P.DS ---
Providers Date of admission: 10/22/21 05:53 Expected date of discharge: 10/27/21 Attending physician: Francisco Javier Malone Consults: 10/22/21 05:53 Consult Physician Routine Consulting Provider: Italo Valdez Consult Reason/Comments: Acute bilateral pulmonary embolism Do you want consulting provider notified?: Yes Consult Physician Routine Consulting Provider: Bryant Souza Consult Reason/Comments: CHF exacerbation Do you want consulting provider notified?: Yes Primary care physician: Francisco Javier Malone [facility] Course: Final Diagnoses: Acute bilateral PE, on Eliquis. Acute CHF, systolic dysfunction, EF 20-25%, etiology unclear Cardiomyopathy, EF 20-25%, possibly ischemic as prior echo in 2017 reported normal LV function Acute hypoxic respiratory failure secondary to all the above, improved Elevated troponins, ruling out acute coronary syndrome, cardiology following History of mitral valve repair at [facility] Recently admitted with Hypovolemic shock, related to severe dehydration, severe diarrhea, anemia. EGD reported mild antral gastritis, normal colonoscopy. Hypertension hyperlipidemia Chronic renal failure, stage III Anemia of chronic disease Chronic diarrhea, tested negative for C. difficile colitis on prior admission History of bowel resection Family history of colon cancer Severe protein calorie malnutrition, BMI 20.1 Hospital course:This is a 60-year-old female with past medical history of mitral valve repair 2005 , hypertension,recently admitted with hypovolemic shock, acute renal failure, dehydration, chronic diarrhea, underwent EGD and colonoscopy reportedly mild gastritis with normal colonoscopy, presented to the ER with complaints of worsening shortness of breath that awakened patient from sleep, accompanied by any palpitations. Reported generalized chest pressure when lying flat. He reports yesterday her O2 sat was within normal limits but heart rate averaging 90-100. On admission patient tachycardic heart rate 105, respiratory rate 24, maintaining O2 sats of 99% on room air. Currently maintaining O2 sats of 95% on 2 L nasal cannula. Afebrile normal WBC, hemoglobin 9.4, platelets 331, d-dimer 5.49. Chest CTA reported bilateral lower lobe pulmonary emboli, pleural effusions, and possible CHF. Heparin drip initiated. Chest x-ray reporting cardiomegaly, pulmonary edema with small pleural effusions, consistent with acute heart failure. ProBNP 35,000. EKG reported normal sinus rhythm, anterior infarct, age undetermined, ST and T-wave abnormality inferior lateral. Elevated troponin 0.2.2, 0.211. Sodium 140, potassium 3.8, chloride 112 bicarb 18 BUN 14, creatinine 1.09-baseline. Coronavirus not detected. Echo currently being completed at bedside. 10/25/2021 on repeat anticoagulated on Eliquis, hemoglobin 10.5. Stools solidifying, tested negative for C. difficile colitis. Denies chest pain, palpitations or shortness of breath. Borderline hypotension with systolic blood pressures in the 90s beta abilio currently on hold. Potential cardiac cath being discussed pending reports from patient's cutting table operator first, regarding EF of 20- 25%. 10/26/2021 primary reports obtained from patient's own cutting table operator first reporting normal EF back from 2017. Borderline hypotension. Beta abilio added to med regimen. Feels better, tolerating exertion. Denies chest pain, palpitations or shortness of breath. Cardiology has decided on no catheterization during this admission. Supplemental oxygen has been weaned off. Cleared by all consults for discharge. Denies any chest pain, palpitations or shortness of breath. She will be discharged home today in stable condition with guarded prognosis. The impression and plan of care has been dictated as directed. : I performed a history and examination of this patient, discussed the same with the dictator. I agree with the dictator's note ,documented as a scribe. Any additional findings or plans will be noted. Patient Condition at Discharge: Stable Plan - Discharge Summary Discharge Rx Participant: No New Discharge Prescriptions: New Apixaban [Eliquis] 10 mg PO DIRECTED #30 tab Spironolactone [Aldactone] 25 mg PO DAILY #30 tab Sodium Chloride 0.65% Nasal [Deep Sea (Saline)] 2 spray NASAL QID PRN ml PRN Reason: Congestion Loperamide [Imodium] 2 mg PO QID PRN cap PRN Reason: Diarrhea Metoprolol Tartrate [Lopressor] 12.5 mg PO BID #60 tab Pantoprazole Sodium [Protonix] 40 mg PO BID #60 tab Aspirin 81 mg PO DAILY tab lisinopriL [Zestril] 2.5 mg PO DAILY 30 Days #30 tab Continue Multivit with Calcium,Iron,Min [Women's Multivitamin] 1 tab PO DAILY ALPRAZolam [Xanax] 0.25 mg PO HS Escitalopram [Lexapro] 5 mg PO DAILY Atorvastatin [Lipitor] 10 mg PO DAILY Budesonide [Budesonide EC] 9 mg PO DAILY Discontinued Aspirin 325 mg PO DAILY Metoprolol Succinate (ER) [Toprol XL] 25 mg PO DAILY Lisinopril [Prinivil] 10 mg PO DAILY Ibuprofen [Motrin] 800 mg PO TID PRN PRN Reason: Pain Loperamide [Imodium] 4 mg PO QID PRN PRN Reason: Diarrhea Discharge Medication List Multivit with Calcium,Iron,Min [Women's Multivitamin] 1 tab PO DAILY 07/10/17 [History] ALPRAZolam [Xanax] 0.25 mg PO HS 04/24/19 [History] Escitalopram [Lexapro] 5 mg PO DAILY 04/24/19 [History] Atorvastatin [Lipitor] 10 mg PO DAILY 10/07/21 [History] Budesonide [Budesonide EC] 9 mg PO DAILY 10/22/21 [History] Apixaban [Eliquis] 10 mg PO DIRECTED #30 tab 10/24/21 [Rx] Aspirin 81 mg PO DAILY tab 10/27/21 [Rx] Loperamide [Imodium] 2 mg PO QID PRN cap 10/27/21 [Rx] Metoprolol Tartrate [Lopressor] 12.5 mg PO BID #60 tab 10/27/21 [Rx] Pantoprazole Sodium [Protonix] 40 mg PO BID #60 tab 10/27/21 [Rx] Sodium Chloride 0.65% Nasal [Deep Sea (Saline)] 2 spray NASAL QID PRN ml 10/27/21 [Rx] Spironolactone [Aldactone] 25 mg PO DAILY #30 tab 10/27/21 [Rx] lisinopriL [Zestril] 2.5 mg PO DAILY 30 Days #30 tab 10/27/21 [Rx] Follow up Appointment(s)/Referral(s): [facility] [REFERRING] - As Needed Wily Garcia MD [STAFF PHYSICIAN] - 11/01/21 3:00 pm (at [address], [place], [place] ) Francisco Javier Malone DO [Primary Care Provider] - 3 Days (office is closed- please call with follow up appointment ) Ambulatory/Diagnostic Orders: Basic Metabolic Panel [LAB.AMB] Location: None Selected Complete Blood Count w/diff [LAB.AMB] Time Frame: 3 Days, Location: None Selected Patient Instructions/Handouts: Heart Failure (DC), Pulmonary Embolism (DC) Activity/Diet/Wound Care/Special Instructions: Bonilla inhibitor held r/t Renal fx. Discharge/Stand Alone Forms: Who Do I Call?, Personal Dater Assembler Discharge Disposition: HOME SELF-CARE
== END 2021-10-27 15:15 | disposition home or self-care (01) | DRG 175 ==
LOC: EC 01:36 → 3SCARD 05:53
PROVIDERS: ADMIT Family Medicine; ATTEND Family Medicine
DX: I26.99 Other pulmonary embolism without acute cor pulmonale (principal); E43 Unspecified severe protein-calorie malnutrition; I50.23 Acute on chronic systolic (congestive) heart failure; J96.01 Acute respiratory failure with hypoxia; I13.0 Hypertensive heart and chronic kidney disease with heart failure and stage 1 through stage 4 chronic kidney disease, or unspecified chronic kidney disease; I42.9 Cardiomyopathy, unspecified; N17.9 Acute kidney failure, unspecified; D63.8 Anemia in other chronic diseases classified elsewhere; E78.5 Hyperlipidemia, unspecified; I08.1 Rheumatic disorders of both mitral and tricuspid valves; I27.20 Pulmonary hypertension, unspecified; J45.909 Unspecified asthma, uncomplicated; K29.70 Gastritis, unspecified, without bleeding; K52.839 Microscopic colitis, unspecified; K52.9 Noninfective gastroenteritis and colitis, unspecified; N18.30 Chronic kidney disease, stage 3 unspecified; Z79.01 Long term (current) use of anticoagulants; Z79.82 Long term (current) use of aspirin; Z79.899 Other long term (current) drug therapy; Z80.0 Family history of malignant neoplasm of digestive organs; Z82.49 Family history of ischemic heart disease and other diseases of the circulatory system; Z90.710 Acquired absence of both cervix and uterus; Z90.49 Acquired absence of other specified parts of digestive tract; Z86.711 Personal history of pulmonary embolism; E83.42 Hypomagnesemia; E86.0 Dehydration; E87.6 Hypokalemia
CPT/HCPCS: 36415; 71045; 71275; 80048; 80053; 83735; 83880; 84484; 85025; 85379; 85610; 85730; 87324; 87502; 87635; 93005; 93306; 96361; 96374; 99285

== ENCOUNTER → 2021-11-03 | Outpatient (CLI) | payer BC ==
[2021-11-03 14:58] LABS: Basophils # (A) 0.08 X 10*3/uL (0.00-0.10); Basophils % (A) 1.1 %; Eosinophils # (A) 0.15 X 10*3/uL (0.04-0.35); HCT 34.1 % (37.2-46.3); HGB 10.3 g/dL (12.0-15.0); Lymphocytes % (A) 34.1 %; MCH 30.4 pg (27.0-32.0); MCHC 30.2 g/dL (32.0-37.0); MCV 100.6 fL (80.0-97.0); Mean Platelet Volume 10.5 fL (9.5-12.2); Monocytes # (A) 0.62 X 10*3/uL (0.20-1.00); Monocytes % (A) 8.4 %; Neutrophils # (A) 3.97 X 10*3/uL (1.80-7.70); Neutrophils % (A) 54.1 %; Platelet Count 315 X 10*3/uL (140-440); RBC 3.39 X 10*6/uL (4.10-5.20); RDW 13.1 % (11.5-14.5); WBC 7.34 X 10*3/uL (4.50-10.00)
[2021-11-03 16:32] LABS: African American GFR (CKD) 55.9 (60.0-200.0); Anion Gap 11.7 mmol/L (10.00-18.00); BUN/Creat Ratio 19.92 Ratio (12.00-20.00); Blood Urea Nitrogen 24.1 mg/dL (9.0-27.0); Calcium 10.8 mg/dL (8.7-10.3); Carbon Dioxide 20.4 mmol/L (20.0-27.5); Non-African American GFR(CKD) 48.3 (60.0-200.0); Potassium 4.1 mmol/L (3.5-5.5)
== END | disposition home or self-care (01) ==
LOC: LABWHC1 10:08
PROVIDERS: ATTEND Nurse Practitioner
DX: R94.4 Abnormal results of kidney function studies (principal)
CPT/HCPCS: 36415; 80048; 85025

== ENCOUNTER 2021-11-10 09:23 | Day surgery (SDC) | payer BC ==
[2021-11-03 14:53] VITALS: BMI 19.3
[~2021-11-10 09:23] MED LIST changes: +ALPRAZolam 0.25 MG TAB PO PRN; +ALPRAZolam 0.5 MG TAB PO PRN; +ASPIRIN 325 MG TAB PO STA; +HEPARIN SODIUM,PORCINE 10,000 UNIT in SODIUM CHLORIDE 0.9% 1,000 ML IRRIGATION PRN; +HEPARIN SODIUM,PORCINE 2,500 UNIT in SODIUM CHLORIDE 0.9% 250 ML IRRIGATION PRN; -LACTATED RINGERS 1,000 ML IV SCH; +NITROGLYCERIN SL TABS 0.4 MG TAB SUBLINGUAL PRN; +SODIUM CHLORIDE 0.9% 1,000 ML in EMPTY BAG 1 BAG IV SCH
[2021-11-10] MEDS ORDERED: SODIUM CHLORIDE 0.9% 1,000 ML in EMPTY BAG 1 BAG IV ONE (09:30)
[2021-11-10] MEDS ORDERED: ASPIRIN 81 MG ONE (09:45)
[2021-11-10] MEDS: MIDAZOLAM 2 MG/2 ML VIAL IV ONE ×2 (11:40→11:47)
[2021-11-10] MEDS ORDERED: LIDOCAINE 1% INJ 10MG/ML (20 ML MDV) SQ ONE (11:46)
[2021-11-10] MEDS ORDERED: HYDROmorphone 0.5 MG/0.5 ML SYRINGE IVP ONE (12:06)
[2021-11-10] MEDS ORDERED: MIDAZOLAM 2 MG/2 ML VIAL IV ONE (12:09)
[2021-11-10] MEDS ORDERED: MORPHINE SULFATE 4MG/4ML SYRG IV ONE (12:11)
[2021-11-10] MEDS ORDERED: IOPAMIDOL-370 125ML BTL INJ ONE (12:20)
[2021-11-10] MEDS ORDERED: RX INFO: IV CONTRAST WAS GIVEN 1 EACH MISC MISCELLANE PRN (12:31)
[2021-11-10] MEDS ORDERED: SODIUM CHLORIDE 0.9% 1,000 ML IV SCH (12:45)
--- NOTE | 2021-11-10 16:25 | CC ---
CARDIAC CATHETERIZATION REPORT DATE OF SERVICE: November 10, 2021. PERFORMING PHYSICIAN: Wily Garcia MD. PROCEDURE PERFORMED: 1. Selective right and left coronary angiogram. 2. Left heart catheterization. 3. Intravascular ultrasound (IVUS) of the left main coronary artery. 4. Selective right common femoral artery angiogram. INDICATION: This is a 60-year-old female patient with history of mitral valve repair was performed at [facility] several years ago as well as hypertension and dyslipidemia who was admitted to the hospital recently with heart failure. She was diagnosed with cardiomyopathy. In light of that, heart catheterization was advised. APPROACH: Right common femoral artery. COMPLICATIONS: None. LEVEL OF SEDATION: Moderate, with sedation length of 37 minutes. PROCEDURE DESCRIPTION: After obtaining an informed consent, the patient was brought to the cardiac car barn laborer. The right common femoral artery was cannulated using micropuncture technique and a micropuncture wire passed easily. Then, I placed a 6-Nigerien sheath in the right common femoral artery. Selective right and left coronary angiogram performed with JR 3.5 and JL3.5 catheters. Both were 5-Nigerien. Left heart catheterization was performed using 5-Nigerien pigtail catheter. After that I did intravascular ultrasound (IVUS) of the left main, please see a separate paragraph for that. SELECTIVE CORONARY ANGIOGRAM: 1. The RCA is a large-caliber vessel. It is a dominant vessel. The RCA is calcified with mild diffuse disease only. Distally it bifurcates into PDA and PLV branches. Both appeared to be angiographically normal. 2. The left main appeared to have an ostial lesion in the range of 50%. That was further investigated using IVUS. There was definitely dampening in the waveform and waveform ventricalization upon engaging the left main even with 5-Nigerien system. The left main bifurcates into LCX and LAD. 3. The LCX is a large-caliber vessel. It is a nondominant vessel. The ostial left circumflex has a lesion appeared to be in the range of 70% to 80%. The left circumflex after that appeared to have mild disease only and gives rise to an OM branch which appeared to have a lesion in the range of 40-50 percent. 4. The LAD: The proximal LAD appeared to be angiographically normal. The mid and distal LAD are normal as well. The LAD gives rise into multiple diagonal branches, count 3 diagonal branches, they appeared to be angiographically normal. HEMODYNAMICS: The LVEDP was about 12-14 mmHg without significant gradient across the aortic valve. IVUS OF THE LEFT MAIN: Anticoagulation was initiated using heparin. I did engage the left main using JL3.5 short tip guiding catheter. I did wire the LAD using a run-through wire. Intravascular ultrasound was then advanced over the wire and I did manual pullback. We did multiple measurements of the left main and the minimal luminal area was about 4 mm2 with an area stenosis of 75%. CONCLUSION: 1. Newly diagnosed cardiomyopathy in this 60-year-old female patient who is known to have mitral valve repair. 2. Severe ostial left main disease documented angiographically as well as further investigated with IVUS. The minimal luminal area is 4.5 mm2 and an area stenosis of 80%. 3. Severe disease involving the ostial left circumflex coronary artery. 4. Slightly elevated left-sided filling pressure. POSTPROCEDURE MANAGEMENT: At this point, I am going to take an opinion from a surgeon and also discussed the management with the patient and her family. MMRUDDY / NATALYN: [id number] /
--- NOTE | 2021-11-10 16:48 | P.GSCN ---
History of Present Illness Consult date: 11/10/21 Reason for Consult: Multivessel coronary artery disease with left main disease. Requesting physician: Wily Garcia History of present illness: This is a 60-year-old female patient who is followed by Dr. Francisco Javier Malone on an outpatient basis for her primary care service. She also follows with Dr. Garcia from cardiology for her cardiology care. She has a past medical history significant for hypertension, dyslipidemia, history of mitral valve repair in 2005 at [facility], family history of coronary artery disease less than 60 years of age, acute on chronic systolic congestive heart failure with a severely impaired left ventricular systolic function with an ejection fraction 20-25%, severe global hypokinesia, recent bilateral pulmonary emboli treated with anticoagulation, chronic renal failure stage III, acute on chronic anemia, history of chronic diarrhea, colitis, history of bowel resection, lifetime nonsmoker and severe protein calorie malnutrition. The patient had a recent admission to [facility] for bilateral pulmonary embolus and congestive heart failure. At that time she presented to the hospital with complaints of increasing shortness of breath. The patient denies any recent fever, chills, nausea, vomiting, chest pain, presyncope or syncope. A transthoracic echocardiogram was completed on 10/22/2021 which demonstrated an overall left ventricular systolic function to be severely impaired with an ejection fraction between 20 and 25%, wall motion abnormalities, moderate mitral valve regurgitation, mitral ring annuloplasty in place, mild to moderate tricuspid valve regurgitation, mild pulmonary hypertension and a small generalized pericardial effusion. Subsequently due to these findings the patient did follow-up with Dr. Garcia on an outpatient basis and was recommended to undergo a heart catheterization which was completed today. Her heart cath demonstrated her left main And ostial lesion in the range of 50% which was further investigated with IVUS which showed an area of stenosis of 75%, an ostial circumflex stenosis in the range of 70-80%, and OM branch with a 40-50% stenosis. Due to the findings on the cardiac catheterization a consult was placed to Dr. Paula Reich from cardiothoracic surgery for further evaluation and treatment recommendations. Review of Systems A 14 point review of systems was completed and was negative except as mentioned in the HPI. Past Medical History Past Medical History: Heart Failure, Hyperlipidemia, Hypertension, Pulmonary Embolus (PE) Additional Past Medical History / Comment(s): See Dr Garcia's H&P. Admitted to [facility] 10/27/21 with heart problems and bilateral PE's. Recent admission to [facility] 10/07/21 with hypovolemic shock r/t severe dehydration/severe diarrhea/hypotension/acute renal failure, hypomagnesemia/hypokalemia and severe protein calorie malnutrition. Hx "twisted bowel" with surgery after hysterectomy, gastritis, chronic loose stool, microscopic colitis. History of Any Multi-Drug Resistant Organisms: None Reported Past Surgical History: Appendectomy, Bowel Resection, Hysterectomy, Orthopedic Surgery Additional Past Surgical History / Comment(s): EGDs, colonoscopies, bowel resection, D&C, mitral valve repair, bilateral ankle ligament repair, right knee menicsus surgery, bilateral shoulder surgery, bilateral elbow surgery for tendonitis, bilateral cataract removals, surgery for deviated septum, bilateral carpal tunnel surgery. Past Anesthesia/Blood Transfusion Reactions: Previous Problems w/ Anesthesia, Family History of Problems w/ Anesthesia, Motion Sickness, Postoperative Nausea & Vomiting (PONV) Additional Past Anesthesia/Blood Transfusion Reaction / Comm: Has had low BP with anesthesia before. MOTHER HAD PONV, low blood pressures after anesthesia. Past Psychological History: Anxiety, Depression Additional Psychological History / Comment(s): Slight depression. Smoking Status: Never smoker Past Alcohol Use History: None Reported Past Drug Use History: None Reported - Past Family History Mother Family Medical History: Cancer Additional Family Medical History / Comment(s): Mother is . Colon cancer. Father Family Medical History: Myocardial Infarction (DE) Additional Family Medical History / Comment(s): Father of a DE at the age of 54 yrs. Brother(s) Family Medical History: Cancer Additional Family Medical History / Comment(s): Prostate cancer. Medications and Allergies Home Medications Medication Instructions Recorded Confirmed Type Multivit with Calcium,Iron,Min 1 tab PO DAILY 07/10/17 11/10/21 History [Women's Multivitamin] ALPRAZolam [Xanax] 0.25 mg PO HS 04/24/19 11/10/21 History Escitalopram [Lexapro] 5 mg PO DAILY 04/24/19 11/10/21 History Atorvastatin [Lipitor] 10 mg PO DAILY 10/07/21 11/10/21 History Budesonide [Budesonide EC] 9 mg PO DAILY 10/22/21 11/10/21 History Apixaban [Eliquis] 10 mg PO DIRECTED #30 tab 10/24/21 11/10/21 Rx Aspirin 81 mg PO DAILY tab 10/27/21 11/10/21 Rx Loperamide [Imodium] 2 mg PO QID PRN cap 10/27/21 11/10/21 Rx Metoprolol Tartrate [Lopressor] 12.5 mg PO BID #60 tab 10/27/21 11/10/21 Rx Pantoprazole Sodium [Protonix] 40 mg PO BID #60 tab 10/27/21 11/10/21 Rx Sodium Chloride 0.65% Nasal [Deep 2 spray NASAL QID PRN ml 10/27/21 11/03/21 Rx Sea (Saline)] Spironolactone [Aldactone] 25 mg PO DAILY #30 tab 10/27/21 11/10/21 Rx lisinopriL [Zestril] 2.5 mg PO DAILY 30 Days #30 tab 10/27/21 11/10/21 Rx Allergies Allergy/AdvReac Type Severity Reaction Status Date / Time latex Allergy Rash/Hives Verified 11/03/21 14:29 Penicillins Allergy Rash/Hives Verified 11/03/21 14:29 codeine AdvReac Confusion Verified 11/03/21 14:29 hydrocodone bitartrate AdvReac Confusion, Verified 11/03/21 14:29 [From Vicodin] ELEV HR, RASH Surgical - Exam Vital Signs Temp Pulse Resp BP Pulse Ox 98.0 F 59 L 16 153/75 100 11/10/21 09:55 11/10/21 09:55 11/10/21 09:55 11/10/21 09:55 11/10/21 09:55 Laying in bed in the extended stay unit, is awake, alert and is in no acute distress. - General no distress, no pain, cachectic - Eyes PERRL, normal ocular movement, no pale, no icteric - ENT normal pinna, normal nares, normal mucosa, no hearing loss, no congestion - Neck Neck is supple. no masses, no bruits, trachea midline, no venous distension - Respiratory Lungs sounds essentially clear throughout, diminished her bilateral bases. No wheezes, crackles or rhonchi. Respirations are symmetrical and nonlabored. - Cardiovascular Regular rhythm and rate. S1 and S2 present, negative for S3 or gallop. Positive systolic murmur 2/6 heard best to her left sternal border. No edema present. - Abdomen Abdomen is soft, nontender and nondistended. Active bowel sounds present in all 4 abdominal quadrants. No guarding or rigidity. No organomegaly appreciated. - Integumentary no rash, no growths, no abnormal pigmentation - Neurologic No focal deficits. normal coordination, normal sensation - Musculoskeletal Moves all 4 extremities with equal strength bilateral. - Psychiatric oriented to time, oriented to person, oriented to place, speech is normal, memory intact Results - Imaging Additional studies: Cardiac catheterization films were reviewed by Dr. Paula Reich. Assessment and Plan Assessment: 1. Multivessel coronary artery disease with left main disease 2. Acute on chronic systolic congestive heart failure with an ejection fraction 25%, and severe global hypokinesia 3. Recently hospitalized for bilateral pulmonary emboli, currently on anticoagulation 4. History of severe mitral valve regurgitation, status post mitral valve repair in 2005 at [facility] 5. History of hypertension 6. Dyslipidemia 7. Chronic renal failure stage III 8. Chronic anemia 9. History of chronic diarrhea 10. Colitis 11. Severe protein calorie malnutrition 12. Lifetime nonsmoker Plan: The patient was seen and examined at her bedside in the extended stay unit. Her chart and diagnostic reviewed. She was seen and examined by Dr. Paula Reich from cardiothoracic surgery. Dr. Reich discussed with the patient the findings on her cardiac catheterization films. Treatment options discussed with the patient including myocardial revascularization surgery. A transthoracic 2-D echocardiogram and a vein mapping to her bilateral lower extremities were ordered as preoperative workup. Likely the patient will need a nuclear scan as a first step as a preliminary viability study. She will follow up with Dr. Garcia as an outpatient. Continue to maximize medical therapy with aspirin, JARED inhibitor, statin and beta abilio. More recommendations to follow based on patient's clinical course and based on the patient's preoperative study results. Thank you Dr. Garcia for this consult and we look forward to working with you in the care of this patient. Time with Patient: Greater than 30
[2021-11-10 17:05] VITALS: RESP 20
[2021-11-10 18:42] VITALS: BP 135/67; PULSE 55; TEMP 98.6
--- NOTE | 2021-11-11 10:55 | ECHOF ---
Referral Reason:Preoperative cardiac surgery MEASUREMENTS -------- HEIGHT: 152.4 cm WEIGHT: 47.6 kg BP: RVIDd: 2.2 cm (< 3.3) IVSd: 1.0 cm (0.6 - 1.1) LVIDd: 4.6 cm (3.9 - 5.3) LVPWd: 1.0 cm (0.6 - 1.1) IVSs: 1.1 cm LVIDs: 3.2 cm LVPWs: 1.2 cm LAESV Index (A-L): 33.17 ml/m Ao Diam: 2.8 cm (2.0 - 3.7) AV Cusp: 1.9 cm (1.5 - 2.6) LA Diam: 3.7 cm (2.7 - 3.8) MV EXCURSION: 19.458 mm (> 18.000) MV EF SLOPE: 64 mm/s (70 - 150) EPSS: 1.0 cm MV E Chencho: 1.62 m/s MV DecT: 266 ms MV A Chencho: 1.00 m/s MV E/A Ratio: 1.63 RAP: 5.00 mmHg RVSP: 27.09 mmHg FINDINGS -------- Sinus rhythm. This was a technically difficult study with suboptimal apical views. Lying flat post cath. The left ventricular size is normal. Left ventricular wall thickness is normal. Overall left vent ricular systolic function is mild-moderately impaired with, an EF between 40 - 45 %. Anterseptal Hy pokinesis The right ventricle is normal in size. LA is midly dilated 29-33ml/m2. The right atrial size is normal. Lumason used Interatrial and interventricular septum intact. The aortic valve is trileaflet and appears structurally normal. There is mild aortic valve sclerosi s. There is no evidence of aortic regurgitation. There is no evidence of aortic stenosis. [id number] mitral regurgitation is present. MV repair Mild tricuspid regurgitation present. There is no evidence of pulmonary hypertension. The right v entricular systolic pressure, as measured by Doppler, is 27.09mmHg. There is no pulmonic regurgitation present. The aortic root size is normal. Normal inferior vena cava with normal inspiratory collapse consistent with estimated right atrial pre ssure of 5 mmHg. There is a small, generalized pericardial effusion present. CONCLUSIONS -------- 1. The left ventricular size is normal. 2. Left ventricular wall thickness is normal. 3. Overall left ventricular systolic function is mild-moderately impaired with, an EF between 40 - 45 %. 4. Anterseptal Hypokinesis 5. LA is midly dilated 29-33ml/m2. 6. There is mild aortic valve sclerosis. 7. [id number] mitral regurgitation is present. 8. MV repair 9. Mild tricuspid regurgitation present. 10. There is a small, generalized pericardial effusion present. DEBRANDER: Francy Gutierrez RDCS
--- NOTE | 2021-11-17 10:01 | P.VSCSTY ---
Greater Saphenous Vein Mapping This is bilateral lower extremity greater saphenous vein mapping. Date of service: 11/10/2021 Vein quality and ultrasound appearance: Wall thickening is seen at the groin, just above the knee, and at the ankle on the right and below the knee and at the ankle on the left. Veins are quite small bilaterally.. Vein size groin right : 3.5 x 3.9 groin left: 3.2 x 3.7 High thigh right: 1.0 x 1.8 high thigh left: 1.9 x 1.9 Mid thigh right: 1.9 x 2.2 mid thigh left: 1.0 x 1.9 Above-knee right: 1.6 x 2.5 above- knee left: 2.1 x 2.5 Below knee right: 2.2 x 2.4 below-knee left: 1.2 x 1.4 Mid calf right: 1.5 x 1.5 mid calf left: 0.8 x 1.3 Ankle right: 0.6 x 0.9 ankle left: 1.1 x 1.1 Impression: Both greater saphenous veins appear inadequate for use as conduit..
== END 2021-11-10 22:11 | disposition home or self-care (01) ==
LOC: CATHCVL 09:23 → 3SCARD 15:37 → CATHCVL 22:11
PROVIDERS: ATTEND Internal Medicine Interventional Cardiology
DX: I25.10 Atherosclerotic heart disease of native coronary artery without angina pectoris (principal); I25.84 Coronary atherosclerosis due to calcified coronary lesion; I42.9 Cardiomyopathy, unspecified; I08.1 Rheumatic disorders of both mitral and tricuspid valves; I10 Essential (primary) hypertension; E78.5 Hyperlipidemia, unspecified; Z82.49 Family history of ischemic heart disease and other diseases of the circulatory system; Z20.822 Contact with and (suspected) exposure to COVID-19; Z88.5 Allergy status to narcotic agent; Z88.0 Allergy status to penicillin; Z09 Encounter for follow-up examination after completed treatment for conditions other than malignant neoplasm; Z88.6 Allergy status to analgesic agent; Z91.040 Latex allergy status; Z86.711 Personal history of pulmonary embolism; Z79.82 Long term (current) use of aspirin; Z79.899 Other long term (current) drug therapy
CPT/HCPCS: 93306; 92978; 93458; 85347; 87635; 93970; C1887; C1769 ×3; C1894; C1753; J2250; J2001; J1644; J1170; Q9950; Q9967; J2270

== ENCOUNTER → 2022-01-11 | Outpatient (CLI) | payer BC ==
[2022-01-11 18:23] LABS: HCT 37.1 % (37.2-46.3); MCH 26.9 pg (27.0-32.0); MCHC 29.6 g/dL (32.0-37.0); MCV 90.7 fL (80.0-97.0); Mean Platelet Volume 10.3 fL (9.5-12.2); NRBC Per 100 WBC 0 /100 WBCS (0.0-0.0); Platelet Count 273 X 10*3/uL (140-440); RBC 4.09 X 10*6/uL (4.10-5.20); RDW 16.3 % (11.5-14.5); WBC 6.65 X 10*3/uL (4.50-10.00)
[2022-01-11 18:31] LABS: African American GFR (CKD) 56.1 (60.0-200.0); Anion Gap 12.9 mmol/L (10.00-18.00); Blood Urea Nitrogen 15.5 mg/dL (9.0-27.0); Carbon Dioxide 21.1 mmol/L (20.0-27.5); Non-African American GFR(CKD) 48.4 (60.0-200.0); Potassium 3.8 mmol/L (3.5-5.5)
== END | disposition home or self-care (01) ==
LOC: LABPAT 12:12
PROVIDERS: ATTEND Internal Medicine Interventional Cardiology
DX: Z01.812 Encounter for preprocedural laboratory examination (principal); I25.10 Atherosclerotic heart disease of native coronary artery without angina pectoris
CPT/HCPCS: 80051; 82565; 84520; 85027

== ENCOUNTER → 2022-03-15 | Outpatient (CLI) | payer BC ==
[2022-03-15 18:27] LABS: HCT 36.6 % (37.2-46.3); HGB 11.6 g/dL (12.0-15.0); MCH 28.5 pg (27.0-32.0); MCHC 31.7 g/dL (32.0-37.0); MCV 89.9 fL (80.0-97.0); Mean Platelet Volume 9.6 fL (9.5-12.2); NRBC Per 100 WBC 0 /100 WBCS (0.0-0.0); Platelet Count 332 X 10*3/uL (140-440); RBC 4.07 X 10*6/uL (4.10-5.20); RDW 17.7 % (11.5-14.5); WBC 12.02 X 10*3/uL (4.50-10.00)
[2022-03-15 23:16] LABS: African American GFR (CKD) 50.9 (60.0-200.0); Anion Gap 12.3 mmol/L (10.00-18.00); Blood Urea Nitrogen 21.6 mg/dL (9.0-27.0); Carbon Dioxide 19.7 mmol/L (20.0-27.5); Non-African American GFR(CKD) 43.9 (60.0-200.0); Potassium 4.7 mmol/L (3.5-5.5)
== END | disposition home or self-care (01) ==
LOC: LABPAT 13:01
PROVIDERS: ATTEND Internal Medicine Interventional Cardiology
DX: Z01.812 Encounter for preprocedural laboratory examination (principal); I25.10 Atherosclerotic heart disease of native coronary artery without angina pectoris
CPT/HCPCS: 80051; 82565; 84520; 85027

== ENCOUNTER 2022-03-21 06:01 | Day surgery (SDC) | payer BC ==
[~2022-03-21 06:01] MED LIST changes: +ATORVASTATIN 80 MG TAB PO STA; +SODIUM CHLORIDE 0.9% 1,000 ML in EMPTY BAG 1 BAG IV ONE; -SODIUM CHLORIDE 0.9% 1,000 ML in EMPTY BAG 1 BAG IV SCH
[2022-03-21] MEDS ORDERED: SODIUM CHLORIDE 0.9% 1,000 ML IV ONE (06:18)
[2022-03-21] MEDS ORDERED: VERAPAMIL 2.5 MG/ML 2 ML AMP ONE (07:18)
[2022-03-21] MEDS ORDERED: HEPARIN SODIUM 1,000 UN/ML (10ML VL) ONE (07:25)
[2022-03-21] MEDS: MIDAZOLAM 2 MG/2 ML VIAL IV ONE ×2 (07:35→07:41)
[2022-03-21] MEDS ORDERED: LIDOCAINE 1% INJ 10MG/ML (5 ML VIAL-PF) SQ ONE ×2 (07:39)
[2022-03-21] MEDS ORDERED: PRASUGREL 10 MG TAB ONE (07:47)
[2022-03-21] MEDS ORDERED: PRASUGREL 10 MG TAB PO ONE (07:50)
[2022-03-21] MEDS ORDERED: MIDAZOLAM 2 MG/2 ML VIAL IV ONE (08:09)
[2022-03-21] MEDS ORDERED: IOPAMIDOL-370 125ML BTL INJ ONE (08:17)
[2022-03-21] MEDS ORDERED: IOPAMIDOL-370 100ML BTL INJ ONE (08:47)
[2022-03-21] MEDS ORDERED: LOPERAMIDE 2 MG CAP PO PRN (08:54)
[2022-03-21] MEDS ORDERED: RX INFO: IV CONTRAST WAS GIVEN 1 EACH MISC MISCELLANE PRN (08:58)
[2022-03-21] MEDS ORDERED: ATROPINE SULFATE 0.1 MG/ML 10ML SYRINGE IV PRN (08:58)
[2022-03-21] MEDS ORDERED: MAG HYDROX/AL HYDROX/SIMETH 30 ML CUP PO PRN (08:58)
[2022-03-21] MEDS ORDERED: APIXABAN 5 MG TAB PO SCH (09:00)
[2022-03-21] MEDS ORDERED: ASPIRIN 81 MG PO SCH (09:00)
[2022-03-21] MEDS ORDERED: SODIUM CHLORIDE 0.9% 1,000 ML in EMPTY BAG 1 BAG IV SCH (09:00)
[2022-03-21 14:37] VITALS: BMI 22.1
[2022-03-21] MEDS: PANTOPRAZOLE 40 MG TABLET PO SCH (14:41)
[2022-03-21] MEDS: CHOLESTYRAMINE (WITH SUGAR) 4 GM PACKET PO SCH (14:41)
[2022-03-21] MEDS: DICYCLOMINE 10 MG CAP PO SCH ×2 (14:41→20:18)
[2022-03-21] MEDS: METOPROLOL TARTRATE 12.5 MG TAB PO SCH ×2 (14:41→20:18)
[2022-03-21] MEDS: lisinopriL 5 MG TAB PO SCH (14:41)
[2022-03-21] MEDS: MULTIVITAMINS, THERA 1 EACH TAB PO SCH (14:41)
[2022-03-21] MEDS: SPIRONOLACTONE 25 MG TAB PO SCH (14:42)
--- NOTE | 2022-03-21 18:35 | P.PCN ---
Date of Procedure: 03/21/22 Operative Findings: PERCUTANEOUS CORONARY INTERVENTION Performing physician Wily Garcia M.D. Procedure Performed: 1. Successful stenting of the left main coronary artery using 3.25 x 12 Xience drug-eluting stent with an excellent angiographic results. 2. Successful stending of the ostial LCx using 3.0 x 12 millimeter balloon with an excellent angiographic result. Indication: This is a 61-year-old female patient was admitted to the hospital a few months ago with acute coronary syndrome. She underwent a heart catheterization and she was found to have intermediate disease involving the ostial left main where there was dampening in the pressure waveform upon engaging the left main using 5-Hungarian system. Subsequently further investigation was performed using intravascular ultrasound and that showed severe disease involving the left main coronary artery. She was seen by cardiothoracic surgeon and she was deemed to be high risk for the surgery in the light of prior open heart surgery for mitral valve repair long time ago. Beside that she was found to be high risk because of the lack of conduit. Approach: Right common femoral artery Complications: None Level of Sedation: Moderate with a sedation length of 77 minutes Procedure Discussion: After obtaining an informed consent the patient was brought to the cardiac research laboratory technician. The right common femoral artery was cannulated using micropuncture technique, the micropuncture wire passed easily then I placed a 7-Hungarian sheath at the right common femoral artery. Engaging the left main using a JL 3.5 guiding catheter which was 7-Hungarian was associated with severe dampening in the pressure waveform and sluggish flow in the left coronary system. For that reason I used a 6-Hungarian guiding catheter which was JL4 guiding catheter. Subsequently eye wired both the LAD and left circumflex coronary arteries. The left circumflex was wired using BMW wire and the LAD was wired using a whisper wire. Balloon angioplasty of the left circumflex was initially performed using 3.0 x 12 mm balloon which was inflated under 12 katherine for 20 seconds. Subsequently I balloon the left circumflex using 3.0 x 12 mm cutting balloon. After that I did balloon angioplasty of the ostial left main coronary artery using 3.0 x 12 mm balloon which was inflated under 12 katherine for 20 seconds. Subsequently I advanced the 0.25 x 12 mm stent over the LAD wire to the left main coronary artery where the stent was positioned under fluoroscopy guidance and deployed under 14 katherine for 20 seconds. The following angiogram showed that the middle of the stent appeared to be slightly under deployed. Unfortunately the intravascular ultrasound machine was not working. I decided to post-dilate that area but before that it seems that the ostial left circumflex was pinched significantly. I rewire the left circumflex using a run-through wire and after that I pulled the jailed wire from behind the stent size. Attempting advancing 3.0 mm balloon was unsuccessful and attempting advancing 1.5 mm balloon was unsuccessful but finally I was able to advance 1 mm balloon and subsequently 1.5 mm balloon and a 3.0 mm balloon. The ostial left circumflex was dilated again where the balloon was inflated under 12 katherine for 20 seconds. After that I postdilated the stent in the left main using 3.5 mm see my compliant balloon because a 3.5 mm noncompliant balloon did not cross the stent. The second balloon was inflated under 14 katherine for 20 seconds. Final angiogram showed excellent angiographic results The procedure was completed without any complication Postprocedure Management: 1. Dual antiplatelet therapy using aspirin as well as Effient for at least 6 month and preferably a year 2. Aggressive cholesterol control 3. Risk factors with difficulty
[2022-03-21] MEDS: APIXABAN 5 MG TAB PO SCH (20:18)
[2022-03-21] MEDS ORDERED: ATORVASTATIN 80 MG TAB PO SCH (21:00)
[2022-03-22 07:57] LABS: Anisocytosis Slight; Basophils # (A) 0.1 k/uL (0-0.2); Basophils % (A) 1 %; Eosinophils # (A) 0.2 k/uL (0-0.7); Eosinophils % (A) 2 %; HCT 37.8 % (34.0-46.0); HGB 12.2 gm/dL (11.4-16.0); Lymphocytes # (A) 2.4 k/uL (1.0-4.8); Lymphocytes % (A) 26 %; MCH 29.4 pg (25.0-35.0); MCHC 32.2 g/dL (31.0-37.0); MCV 91.4 fL (80.0-100.0); Monocytes # (A) 0.4 k/uL (0-1.0); Monocytes % (A) 5 %; Neutrophils % (A) 64 %; Platelet Count 269 k/uL (150-450); RBC 4.13 m/uL (3.80-5.40); RDW 17.4 % (11.5-15.5); WBC 9.3 k/uL (3.8-10.6)
[2022-03-22 07:59] VITALS: BP 133/69; PULSE 69; RESP 17; TEMP 98.4
--- NOTE | 2022-03-22 08:05 | P.DS ---
Providers Attending physician: Wily Garcia Consults: 03/21/22 08:58 Consult Physician Routine Consulting Provider: [facility] Consult Reason/Comments: Post Interventional patient Do you want consulting provider notified?: Already Contacted Primary care physician: Francisco Javier Malone [facility] Course: The patient is a pleasant 62-year-old female patient was underwent yesterday successful stenting of the left main coronary artery with a good angiographic results and without any complications from right groin approach. She was seen this morning. The right groin soft and nontender and without any bruises. She is asymptomatic from the cardiac standpoint of view, and she is also hemolytically stable. The patient is going to be discharged home on dual antiplatelet therapy and I'll follow-up with the patient in a week. As a matter of fact she is going to be discharged on triple therapy because she was receiving oral anticoagulation for history of PE. Plan - Discharge Summary Discharge Rx Participant: No New Discharge Prescriptions: New Prasugrel [Effient] 10 mg PO DAILY #90 tab Continue Multivit with Calcium,Iron,Min [Women's Multivitamin] 1 tab PO DAILY ALPRAZolam [Xanax] 0.25 mg PO HS Atorvastatin [Lipitor] 80 mg PO HS Spironolactone [Aldactone] 25 mg PO DAILY #30 tab Loperamide [Imodium] 2 mg PO QID PRN cap PRN Reason: Diarrhea Metoprolol Tartrate [Lopressor] 12.5 mg PO BID #60 tab Dicyclomine HCl 10 mg PO BID Aspirin 81 mg PO DAILY tab lisinopriL [Zestril] 5 mg PO DAILY Cholestyramine (with Sugar) [Cholestyramine Packet] 4 gm PO DAILY Omeprazole 20 mg PO DAILY Changed Apixaban [Eliquis] 2.5 mg PO BID #0 Discharge Medication List Multivit with Calcium,Iron,Min [Women's Multivitamin] 1 tab PO DAILY 07/10/17 [History] ALPRAZolam [Xanax] 0.25 mg PO HS 04/24/19 [History] Atorvastatin [Lipitor] 80 mg PO HS 10/07/21 [History] Aspirin 81 mg PO DAILY tab 10/27/21 [Rx] Loperamide [Imodium] 2 mg PO QID PRN cap 10/27/21 [Rx] Metoprolol Tartrate [Lopressor] 12.5 mg PO BID #60 tab 10/27/21 [Rx] Spironolactone [Aldactone] 25 mg PO DAILY #30 tab 10/27/21 [Rx] lisinopriL [Zestril] 5 mg PO DAILY 01/25/22 [History] Cholestyramine (with Sugar) [Cholestyramine Packet] 4 gm PO DAILY 03/18/22 [History] Dicyclomine HCl 10 mg PO BID 03/18/22 [History] Omeprazole 20 mg PO DAILY 03/18/22 [History] Apixaban [Eliquis] 2.5 mg PO BID #0 03/22/22 [Rx] Prasugrel [Effient] 10 mg PO DAILY #90 tab 03/22/22 [Rx] Follow up Appointment(s)/Referral(s): Wily Garcia MD [STAFF PHYSICIAN] - 1 Week (March 26 at 10:45 AM)
[2022-03-22 08:12] LABS: Calcium 10.5 mg/dL (8.4-10.2); Potassium 5.1 mmol/L (3.5-5.1)
[2022-03-22] MEDS ORDERED: PRASUGREL 10 MG TAB PO SCH (09:00)
[2022-03-22] MEDS ORDERED: ASPIRIN 81 MG PO SCH (09:00)
[2022-03-22] MEDS: SPIRONOLACTONE 25 MG TAB PO SCH (09:05)
[2022-03-22] MEDS: MULTIVITAMINS, THERA 1 EACH TAB PO SCH (09:05)
[2022-03-22] MEDS: PANTOPRAZOLE 40 MG TABLET PO SCH (09:05)
[2022-03-22] MEDS: CHOLESTYRAMINE (WITH SUGAR) 4 GM PACKET PO SCH (09:05)
[2022-03-22] MEDS: METOPROLOL TARTRATE 12.5 MG TAB PO SCH (09:05)
[2022-03-22] MEDS: lisinopriL 5 MG TAB PO SCH (09:05)
[2022-03-22] MEDS: APIXABAN 5 MG TAB PO SCH (09:06)
[2022-03-22] MEDS: DICYCLOMINE 10 MG CAP PO SCH (09:06)
== END 2022-03-22 10:56 | disposition home or self-care (01) ==
LOC: CATHCVL 06:01 → 3SCARD 09:25 → CATHCVL 03-22 10:56
PROVIDERS: ATTEND Internal Medicine Interventional Cardiology
DX: I25.10 Atherosclerotic heart disease of native coronary artery without angina pectoris (principal); I10 Essential (primary) hypertension; E78.5 Hyperlipidemia, unspecified; I42.9 Cardiomyopathy, unspecified; Z86.711 Personal history of pulmonary embolism; Z20.822 Contact with and (suspected) exposure to COVID-19; Z98.890 Other specified postprocedural states; Z82.49 Family history of ischemic heart disease and other diseases of the circulatory system; Z79.01 Long term (current) use of anticoagulants; Z79.82 Long term (current) use of aspirin; Z79.52 Long term (current) use of systemic steroids; Z88.5 Allergy status to narcotic agent; Z88.0 Allergy status to penicillin; Z91.040 Latex allergy status
CPT/HCPCS: 80048; 85025; 87635; C9600 ×2; C1769 ×5; C1887; C1725 ×7; C1894; C1874; J2250; J2001; J1644; Q9967 ×2; 92920

== ENCOUNTER 2022-03-26 18:56 | Emergency (ER) | payer BC ==
[2022-03-26 20:42] VITALS: BP 115/81; PULSE 71; RESP 18; TEMP 97.9
[2022-03-26] MEDS ORDERED: LIDOCAINE/EPINEPHR/TETRACAINE 5 ML BOTTLE TOPICAL ONE (22:27)
[2022-03-26] MEDS ORDERED: OXYMETAZOLINE 0.05% NASL SPRAY 1 SPRAY BOTTLE NASAL STA (22:27)
--- NOTE | 2022-03-26 22:29 | ED ---
ENT HPI - General Chief complaint: ENT Stated complaint: Nose Bleed/Takes blood thinner Time Seen by Provider: 03/26/22 22:22 Source: patient, RN notes reviewed Mode of arrival: ambulatory Limitations: no limitations - History of Present Illness Initial comments: This is a pleasant 61-year-old female who presents to the emergency department complaining of a nosebleed which started about 3 hours ago. Patient is on Eliquis and Effient after having a cardiac stent placed on Monday by Dr. Garcia. Patient denying any other symptomology. States she feels well otherwise. Patient states she believes she stopped it at this point. No headache, no fever or chills, no changes in vision or hearing, no sore throat or difficulty with speech, no neck pain, no chest pain or shortness of breath, no abdominal pain, no nausea or vomiting, no changes in urination or bowel movements, no numbness or tingling, no extremity pain, no skin rashes or lesions. MD complaint: epistaxis - Related Data Home Medications Medication Instructions Recorded Confirmed Multivit with Calcium,Iron,Min 1 tab PO DAILY 07/10/17 03/21/22 [Women's Multivitamin] ALPRAZolam [Xanax] 0.25 mg PO HS 04/24/19 03/21/22 Atorvastatin [Lipitor] 80 mg PO HS 10/07/21 03/21/22 lisinopriL [Zestril] 5 mg PO DAILY 01/25/22 03/21/22 Cholestyramine (with Sugar) 4 gm PO DAILY 03/18/22 03/18/22 [Cholestyramine Packet] Dicyclomine HCl 10 mg PO BID 03/18/22 03/21/22 Omeprazole 20 mg PO DAILY 03/18/22 03/21/22 Previous Rx's Medication Instructions Recorded Aspirin 81 mg PO DAILY tab 10/27/21 Loperamide [Imodium] 2 mg PO QID PRN cap 10/27/21 Metoprolol Tartrate [Lopressor] 12.5 mg PO BID #60 tab 10/27/21 Spironolactone [Aldactone] 25 mg PO DAILY #30 tab 10/27/21 Apixaban [Eliquis] 2.5 mg PO BID #0 03/22/22 Prasugrel [Effient] 10 mg PO DAILY #90 tab 03/22/22 Allergies Allergy/AdvReac Type Severity Reaction Status Date / Time latex Allergy Rash/Hives Verified 03/26/22 20:42 Penicillins Allergy Rash/Hives Verified 03/26/22 20:42 codeine AdvReac Confusion Verified 03/26/22 20:42 hydrocodone bitartrate AdvReac Confusion, Verified 03/26/22 20:42 [From Vicodin] ELEV HR, RASH-can take hydrocodone Review of Systems ROS Statement: Those systems with pertinent positive or pertinent negative responses have been documented in the HPI. ROS Other: All systems not noted in ROS Statement are negative. Past Medical History Past Medical History: Heart Failure, Hyperlipidemia, Hypertension, Pulmonary Embolus (PE) Additional Past Medical History / Comment(s): admitted to [facility] on 10/07/21 with hypovolemic shock r/t severe dehydration/severe diarrhea/hypotension/acute renal failure, hypomagnesemia/hypokalemia & malnutrition & PE in Dec. 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 mild SOB w/exertion History of Any Multi-Drug Resistant Organisms: None Reported Past Surgical History: Appendectomy, Bowel Resection, Heart Catheterization, Hysterectomy, Orthopedic Surgery Additional Past Surgical History / Comment(s): EGDs, colonoscopies, bowel resection, D&C, mitral valve repair, bilateral ankle ligament repair, R knee menicsus surgery, bert shoulder surgeries, bilateral elbow surgery for tendonitis, bilateral cataract removals, surgery for deviated septum, bert CTS Past Anesthesia/Blood Transfusion Reactions: Previous Problems w/ Anesthesia, Family History of Problems w/ Anesthesia, Postoperative Nausea & Vomiting (PONV) Additional Past Anesthesia/Blood Transfusion Reaction / Comment(s): MOTHER HAD PONV, low blood pressures after anesthesia Past Psychological History: Anxiety, Depression Smoking Status: Never smoker Past Alcohol Use History: None Reported Past Drug Use History: None Reported - Past Family History Mother Family Medical History: Cancer Additional Family Medical History / Comment(s): Mother is at age 60 Col on cancer. Father Family Medical History: Myocardial Infarction ([place]) Additional Family Medical History / Comment(s): Father of a [place] at the age of 54 yrs. Brother(s) Family Medical History: Cancer Additional Family Medical History / Comment(s): Prostate cancer. General Exam - General Exam Comments Initial Comments: Nontoxic appearing female in no acute distress. Limitations: no limitations General appearance: alert, in no apparent distress Head exam: Present: atraumatic, normocephalic, normal inspection Eye exam: Present: normal appearance, PERRL, EOMI. Absent: scleral icterus, conjunctival injection, periorbital swelling ENT exam: Present: normal exam, mucous membranes moist, other (Evidence of bleeding from the right nose. No current bleeding. ) Neck exam: Present: normal inspection. Absent: tenderness, meningismus, lymphadenopathy Respiratory exam: Present: normal lung sounds bilaterally. Absent: respiratory distress, wheezes, rales, rhonchi, stridor Cardiovascular Exam: Present: regular rate, normal rhythm, normal heart sounds. Absent: systolic murmur, diastolic murmur, rubs, gallop, clicks GI/Abdominal exam: Present: soft, normal bowel sounds. Absent: distended, tenderness, guarding, rebound, rigid Extremities exam: Present: normal inspection, full ROM, normal capillary refill. Absent: tenderness, pedal edema, joint swelling, calf tenderness Back exam: Present: normal inspection Neurological exam: Present: alert, oriented X3, CN II-XII intact Psychiatric exam: Present: normal affect, normal mood Skin exam: Present: warm, dry, intact, normal color. Absent: rash Course Vital Signs 03/26/22 20:39 Temperature 97.9 F Pulse Rate 71 Respiratory 18 Rate Blood Pressure 115/81 O2 Sat by Pulse 100 Oximetry Procedures - Procedures Initial comment: Shortness positioned accordingly. Nasal inspection with otoscope speculum was performed. Patient did have bleeding from the right anterior nasal septum which is actually stopped by the time I'm seeing the patient. Let solution was used for topical anesthesia. Afrin nasal spray, 2 sprays each nostril were used for vasoconstriction. Patient was observed for quite some time, probably one hour and 15 minutes after treatment. Patient had no subsequent bleeding. Medical Decision Making - Medical Decision Making Patient stable for discharge, vital signs stable, patient afebrile. Patient had no subsequent nasal bleeding. Unfortunately the patient is on anticoagulation. I did discuss the possibility of rebleeding. In fact, I told the patient that she is high risk for this. Patient told not to manipulate the nose. Patient was told that if she needs to return we'll need to stop the bleeding with nasal packing. Patient understands this. Discharged in stable condition Patient was told to return to the ER for any signs or symptoms worsen. Told to return immediately if any other problems arise. All questions answered. Treatment plan discussed. Patient in agreement Every effort has been made to ensure accuracy of this dictation. However, due to the limitations of electronic medical records and dictation devices, errors in charting still occur. Revising physicians Dr. Rice Disposition Clinical Impression: Epistaxis Disposition: HOME SELF-CARE Condition: Stable Instructions (If sedation given, give patient instructions): Nosebleed (ED) Additional Instructions: Follow-up with your regular physician as directed. Return to the ER immediately if any symptoms worsen, new symptoms arise, or any other problems develop. Use the Afrin nasal spray, 2 sprays to each nostril every 12 hours for 3 days. follow-up appointment with your regular doctor. Call 8 AM Monday morning. Try your best to not manipulate her nose. If you have to sneeze try to get the air to come out of your mouth. If he started bleeding again return to the ER, we will have to use a nasal packing. Is patient prescribed a controlled substance at d/c from ED?: No Referrals: Francisco Javier Malone DO [Primary Care Provider] - 1-2 days Time of Disposition: 00:07
== END 2022-03-27 01:08 | disposition home or self-care (01) ==
LOC: EC 18:56
DX: R04.0 Epistaxis (principal); I11.0 Hypertensive heart disease with heart failure; I50.9 Heart failure, unspecified; E78.5 Hyperlipidemia, unspecified; Z88.0 Allergy status to penicillin; Z88.5 Allergy status to narcotic agent; Z91.040 Latex allergy status; Z79.899 Other long term (current) drug therapy
CPT/HCPCS: 99283

== ENCOUNTER 2022-04-14 19:10 | Emergency (ER) | payer BC ==
[2022-04-14 19:20] VITALS: BP 131/74; PULSE 94; RESP 18; TEMP 98.1
[2022-04-14] MEDS ORDERED: OXYMETAZOLINE 0.05% NASL SPRAY 1 SPRAY BOTTLE NASAL STA (19:29)
[2022-04-14] MEDS ORDERED: SILVER NITRATE APPLICATOR 1 EACH STICK..EA. TOPICAL STA (19:29)
[2022-04-14] MEDS ORDERED: LIDOCAINE/EPINEPHR/TETRACAINE 5 ML BOTTLE TOPICAL ONE (19:29)
--- NOTE | 2022-04-14 20:05 | ED ---
ENT HPI - General Chief complaint: ENT Stated complaint: Nosebleed Time Seen by Provider: 04/14/22 19:24 Source: patient Mode of arrival: ambulatory Limitations: no limitations - History of Present Illness Initial comments: Patient with a history of heart failure, hypertension, hyperlipidemia and pulmonary embolism presents with recurrent nosebleed. Patient was seen here a few weeks ago for the same and ended up going to ENT in having her nose cauterized. Patient states she sneezed this morning and started having nosebleed again. She has an appointment tomorrow with Dr. Clifton. Patient denying any pain or trauma. Patient is on Eliquis and Effient. No headache, no fever or chills, no changes in vision or hearing, no sore throat or difficulty with speech, no neck pain, no chest pain or shortness of breath, no abdominal pain, no nausea or vomiting, no changes in urination or bowel movements, no numbness or tingling, no extremity pain, no skin rashes or lesions. Nosebleed has been present for a few hours. Patient has been having success with direct pressure but keeps restarting. Patient having no bleeding from other sites. MD complaint: epistaxis - Related Data Home Medications Medication Instructions Recorded Confirmed Multivit with Calcium,Iron,Min 1 tab PO DAILY 07/10/17 03/21/22 [Women's Multivitamin] ALPRAZolam [Xanax] 0.25 mg PO HS 04/24/19 03/21/22 Atorvastatin [Lipitor] 80 mg PO HS 10/07/21 03/21/22 lisinopriL [Zestril] 5 mg PO DAILY 01/25/22 03/21/22 Cholestyramine (with Sugar) 4 gm PO DAILY 03/18/22 03/18/22 [Cholestyramine Packet] Dicyclomine HCl 10 mg PO BID 03/18/22 03/21/22 Omeprazole 20 mg PO DAILY 03/18/22 03/21/22 Previous Rx's Medication Instructions Recorded Aspirin 81 mg PO DAILY tab 10/27/21 Loperamide [Imodium] 2 mg PO QID PRN cap 10/27/21 Metoprolol Tartrate [Lopressor] 12.5 mg PO BID #60 tab 10/27/21 Spironolactone [Aldactone] 25 mg PO DAILY #30 tab 10/27/21 Apixaban [Eliquis] 2.5 mg PO BID #0 03/22/22 Prasugrel [Effient] 10 mg PO DAILY #90 tab 03/22/22 Allergies Allergy/AdvReac Type Severity Reaction Status Date / Time latex Allergy Rash/Hives Verified 03/26/22 20:42 Penicillins Allergy Rash/Hives Verified 03/26/22 20:42 codeine AdvReac Confusion Verified 03/26/22 20:42 hydrocodone bitartrate AdvReac Confusion, Verified 03/26/22 20:42 [From Vicodin] ELEV HR, RASH-can take hydrocodone Review of Systems ROS Statement: Those systems with pertinent positive or pertinent negative responses have been documented in the HPI. ROS Other: All systems not noted in ROS Statement are negative. Past Medical History Past Medical History: Heart Failure, Hyperlipidemia, Hypertension, Pulmonary Embolus (PE) Additional Past Medical History / Comment(s): admitted to [facility] on 10/07/21 with hypovolemic shock r/t severe dehydration/severe diarrhea/hypotension/acute renal failure, hypomagnesemia/hypokalemia & malnutrition & PE in Dec. 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 mild SOB w/exertion History of Any Multi-Drug Resistant Organisms: None Reported Past Surgical History: Appendectomy, Bowel Resection, Heart Catheterization, Hysterectomy, Orthopedic Surgery Additional Past Surgical History / Comment(s): EGDs, colonoscopies, bowel resection, D&C, mitral valve repair, bilateral ankle ligament repair, R knee menicsus surgery, bert shoulder surgeries, bilateral elbow surgery for tendonitis, bilateral cataract removals, surgery for deviated septum, bert CTS Past Anesthesia/Blood Transfusion Reactions: Previous Problems w/ Anesthesia, Family History of Problems w/ Anesthesia, Postoperative Nausea & Vomiting (PONV) Additional Past Anesthesia/Blood Transfusion Reaction / Comment(s): MOTHER HAD PONV, low blood pressures after anesthesia Past Psychological History: Anxiety, Depression Smoking Status: Never smoker Past Alcohol Use History: None Reported Past Drug Use History: None Reported - Past Family History Mother Family Medical History: Cancer Additional Family Medical History / Comment(s): Mother is at age 60 Colon cancer. Father Family Medical History: Myocardial Infarction ([place]) Additional Family Medical History / Comment(s): Father of a [place] at the age of 54 yrs. Brother(s) Family Medical History: Cancer Additional Family Medical History / Comment(s): Prostate cancer. General Exam Limitations: no limitations General appearance: alert, in no apparent distress Head exam: Present: atraumatic, normocephalic, normal inspection Eye exam: Present: normal appearance, PERRL, EOMI. Absent: scleral icterus, conjunctival injection, periorbital swelling ENT exam: Present: normal exam, normal oropharynx, mucous membranes dry, mucous membranes moist, TM's normal bilaterally, normal external ear exam, other (Nosebleed noted mostly from the left nostril. Minimally from the right. No airway issues. No evidence of trauma) Neck exam: Present: normal inspection. Absent: tenderness, meningismus, lymphadenopathy Respiratory exam: Present: normal lung sounds bilaterally. Absent: respiratory distress, wheezes, rales, rhonchi, stridor Cardiovascular Exam: Present: regular rate, normal rhythm, normal heart sounds. Absent: systolic murmur, diastolic murmur, rubs, gallop, clicks GI/Abdominal exam: Present: soft, normal bowel sounds. Absent: distended, tenderness, guarding, rebound, rigid Extremities exam: Present: normal inspection, full ROM, normal capillary refill. Absent: tenderness, pedal edema, joint swelling, calf tenderness Back exam: Present: normal inspection Neurological exam: Present: alert, oriented X3, CN II-XII intact Psychiatric exam: Present: normal affect, normal mood Skin exam: Present: warm, dry, intact, normal color. Absent: rash Course Vital Signs 04/14/22 19:17 Temperature 98.1 F Pulse Rate 94 Respiratory 18 Rate Blood Pressure 131/74 O2 Sat by Pulse 98 Oximetry - Reevaluation(s) Reevaluation #1: 04/14/22 21:42 Medical record is reviewed Symptoms are improved here in the emergency department, no bleeding after nasal packing. 8 cm nasal tampon use. Patient is informed of results and questions answered Patient in no distress Procedures - Procedures Initial comment: Patient was set up for epistaxis treatment. I did use Afrin nasal spray 2 sprays each nostril. Topical LAT solution was used to anesthetize the right septum. Bleeding was noted from the anterior nasal septum on the right. An attempt was made for cautery. Unfortunately the patient had rebleeding after a period of observation. 8 cm nasal tampon was used to provide hemostasis. Patient had no bleeding after a period of observation. Medical Decision Making - Medical Decision Making Patient has an appointment tomorrow morning at 8 AM with the ear nose and throat doctor. I'm going to forego any antibiotics since the appointment is short-term follow-up. Patient has an anterior nasal tampon placed. No active bleeding at discharge. Hemodynamically stable. I also told the patient to touch base with her neuroradiologist regarding her anticoagulant medications. Patient opts to having issues with recurrent epistaxis. Patient already been to the ear nose and throat doctor since she was seen here a few weeks ago. Patient had cautery done there and now is bleeding through that with only minimal irritation from sneezing. Treatment plan discussed. Patient voiced understanding. She knows she needs to make her appointment tomorrow without fail. Patient was told to return to the ER for any signs or symptoms worsen. Told to return immediately if any other problems arise. All questions answered. Treatment plan discussed. Patient in agreement Every effort has been made to ensure accuracy of this dictation. However, due to the limitations of electronic medical records and dictation devices, errors in charting still occur. The case was discussed in detail with ED attending physician. Presentation, findings, treatment plan discussed in detail. [employer] Specialist, Dr. Wade. Disposition Clinical Impression: Anterior epistaxis, Respiratory obstruction Disposition: HOME SELF-CARE Condition: Stable Instructions (If sedation given, give patient instructions): Nosebleed (ED) Additional Instructions: Leave the packing in until the ENT appointment tomorrow. Also touch base with your neuroradiologist regarding the blood thinners. Follow-up with your regular physician as directed. Return to the ER immediately if any symptoms worsen, new symptoms arise, or any other problems develop. Use the nasal spray, 2 sprays to the left nostril every 12 hours for 3 days only. DO not go longer than 3 days. Is patient prescribed a controlled substance at d/c from ED?: No Referrals: Flavio Melgar MD [STAFF PHYSICIAN] - 04/15/22 8:00 am Wily Garcia MD [STAFF PHYSICIAN] - As Soon As Possible Time of Disposition: 21:42
== END 2022-04-14 21:56 | disposition home or self-care (01) ==
LOC: EC 19:10
DX: R04.0 Epistaxis (principal); Z91.040 Latex allergy status; Z88.0 Allergy status to penicillin; Z88.5 Allergy status to narcotic agent; E78.5 Hyperlipidemia, unspecified; I11.0 Hypertensive heart disease with heart failure; Z82.49 Family history of ischemic heart disease and other diseases of the circulatory system; J98.8 Other specified respiratory disorders

== ENCOUNTER 2022-04-20 22:31 | Emergency (ER) | payer BC ==
[2022-04-21 00:20] VITALS: TEMP 98
[2022-04-21] MEDS ORDERED: ONDANSETRON 4 MG/2 ML VIAL IVP STA (01:54)
[2022-04-21] MEDS ORDERED: CEPHALEXIN 500 MG CAP PO STA (02:00)
--- NOTE | 2022-04-21 02:00 | ED ---
ENT HPI - General Chief complaint: ENT Stated complaint: Nose bleed since 11am this moring Time Seen by Provider: 04/21/22 01:32 Source: patient Mode of arrival: ambulatory - History of Present Illness MD complaint: epistaxis Onset/Timin -: hour(s) Location: nose Consistency: constant Improves with: pressure Worsens with: none Context-Epistaxis: other (eliquis and effient) - Related Data Home Medications Medication Instructions Recorded Confirmed Multivit with Calcium,Iron,Min 1 tab PO DAILY 07/10/17 03/21/22 [Women's Multivitamin] ALPRAZolam [Xanax] 0.25 mg PO HS 04/24/19 03/21/22 Atorvastatin [Lipitor] 80 mg PO HS 10/07/21 03/21/22 lisinopriL [Zestril] 5 mg PO DAILY 01/25/22 03/21/22 Cholestyramine (with Sugar) 4 gm PO DAILY 03/18/22 03/18/22 [Cholestyramine Packet] Dicyclomine HCl 10 mg PO BID 03/18/22 03/21/22 Omeprazole 20 mg PO DAILY 03/18/22 03/21/22 Previous Rx's Medication Instructions Recorded Aspirin 81 mg PO DAILY tab 10/27/21 Loperamide [Imodium] 2 mg PO QID PRN cap 10/27/21 Metoprolol Tartrate [Lopressor] 12.5 mg PO BID #60 tab 10/27/21 Spironolactone [Aldactone] 25 mg PO DAILY #30 tab 10/27/21 Apixaban [Eliquis] 2.5 mg PO BID #0 03/22/22 Prasugrel [Effient] 10 mg PO DAILY #90 tab 03/22/22 Allergies Allergy/AdvReac Type Severity Reaction Status Date / Time latex Allergy Rash/Hives Verified 04/21/22 00:20 Penicillins Allergy Rash/Hives Verified 04/21/22 00:20 codeine AdvReac Confusion Verified 04/21/22 00:20 hydrocodone bitartrate AdvReac Confusion, Verified 04/21/22 00:20 [From Vicodin] ELEV HR, RASH-can take hydrocodone Review of Systems ROS Statement: Those systems with pertinent positive or pertinent negative responses have been documented in the HPI. ROS Other: All systems not noted in ROS Statement are negative. Constitutional: Denies: fever, chills Eyes: Denies: eye pain, vision change ENT: Reports: epistaxis. Denies: throat pain Respiratory: Denies: cough, dyspnea Cardiovascular: Denies: chest pain, palpitations, syncope Gastrointestinal: Reports: nausea. Denies: abdominal pain, vomiting Musculoskeletal: Denies: back pain Skin: Denies: rash Neurological: Denies: headache, weakness, numbness Past Medical History Past Medical History: Heart Failure, Hyperlipidemia, Hypertension, Pulmonary Embolus (PE) Additional Past Medical History / Comment(s): admitted to [facility] on 10/07/21 with hypovolemic shock r/t severe dehydration/severe diarrhea/hypotension/acute renal failure, hypomagnesemia/hypokalemia & malnutrition & PE in Oct. 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 mild SOB w/exertion, cardiac stent History of Any Multi-Drug Resistant Organisms: None Reported Past Surgical History: Appendectomy, Bowel Resection, Heart Catheterization, Heart Catheterization With Stent, Hysterectomy, Orthopedic Surgery Additional Past Surgical History / Comment(s): EGDs, colonoscopies, bowel resection, D&C, mitral valve repair, bilateral ankle ligament repair, R knee menicsus surgery, bert shoulder surgeries, bilateral elbow surgery for tendonitis, bilateral cataract removals, surgery for deviated septum, bert CTS Past Anesthesia/Blood Transfusion Reactions: Previous Problems w/ Anesthesia, Family History of Problems w/ Anesthesia, Postoperative Nausea & Vomiting (PONV) Additional Past Anesthesia/Blood Transfusion Reaction / Comment(s): MOTHER HAD PONV, low blood pressures after anesthesia Past Psychological History: Anxiety, Depression Smoking Status: Never smoker Past Alcohol Use History: None Reported Past Drug Use History: None Reported - Past Family History Mother Family Medical History: Cancer Additional Family Medical History / Comment(s): Mother is at age 60 Colon cancer. Father Family Medical History: Myocardial Infarction ([place]) Additional Family Medical History / Comment(s): Father of a [place] at the age of 54 yrs. Brother(s) Family Medical History: Cancer Additional Family Medical History / Comment(s): Prostate cancer. General Exam General appearance: alert, in no apparent distress Head exam: Present: atraumatic, normocephalic Eye exam: Present: normal appearance. Absent: scleral icterus, conjunctival injection ENT exam: Present: normal oropharynx, mucous membranes moist Neck exam: Present: normal inspection Respiratory exam: Present: normal lung sounds bilaterally. Absent: respiratory distress, wheezes, rales, rhonchi, stridor Cardiovascular Exam: Present: regular rate, normal rhythm, normal heart sounds. Absent: systolic murmur, diastolic murmur, rubs, gallop GI/Abdominal exam: Present: soft. Absent: distended, tenderness, guarding, re bound, rigid, mass Extremities exam: Present: normal inspection, normal capillary refill. Absent: pedal edema, calf tenderness Back exam: Present: normal inspection Neurological exam: Present: alert Skin exam: Present: warm, dry, intact, normal color. Absent: rash Course Vital Signs 04/21/22 00:15 Temperature 98 F Pulse Rate 74 Respiratory 18 Rate Blood Pressure 140/80 O2 Sat by Pulse 100 Oximetry Medical Decision Making - Medical Decision Making 61-year-old woman here with epistaxis that she appears to have stops with nasal tampon that she had applied. There is no posterior drainage at my exam. We discussed changing the packing to one of our packings and at this point the patient would rather leave her current packing in place. Patient is observed in the emergency department - Lab Data Result diagrams: 04/21/22 01:54 04/21/22 01:54 Lab Results 04/21/22 04/21/22 Range/Units 01:54 01:54 WBC 7.1 (3.8-10.6) k/uL RBC 2.99 L (3.80-5.40) m/uL Hgb 8.5 L D (11.4-16.0) gm/dL Hct 27.3 L (34.0-46.0) % MCV 91.3 (80.0-100.0) fL MCH 28.6 (25.0-35.0) pg MCHC 31.3 (31.0-37.0) g/dL RDW 15.1 (11.5-15.5) % Plt Count 281 (150-450) k/uL MPV 7.2 Neutrophils % 62 % Lymphocytes % 28 % Monocytes % 5 % Eosinophils % 1 % Basophils % 1 % Neutrophils # 4.4 (1.3-7.7) k/uL Lymphocytes # 2.0 (1.0-4.8) k/uL Monocytes # 0.4 (0-1.0) k/uL Eosinophils # 0.1 (0-0.7) k/uL Basophils # 0.1 (0-0.2) k/uL Hypochromasia Slight Sodium 131 L (137-145) mmol/L Potassium 3.8 (3.5-5.1) mmol/L Chloride 105 (98-107) mmol/L Carbon Dioxide 18 L (22-30) mmol/L Anion Gap 8 mmol/L BUN 15 (7-17) mg/dL Creatinine 1.26 H (0.52-1.04) mg/dL Est GFR (CKD-EPI)AfAm 53 (>60 ml/min/1.73 sqM) Est GFR (CKD-EPI)NonAf 46 (>60 ml/min/1.73 sqM) Glucose 92 (74-99) mg/dL Calcium 10.0 (8.4-10.2) mg/dL Disposition Clinical Impression: Epistaxis, Anemia Disposition: HOME SELF-CARE Condition: Good Instructions (If sedation given, give patient instructions): Nosebleed (ED), Anemia (ED) Is patient prescribed a controlled substance at d/c from ED?: No Referrals: Francisco Javier Malone DO [Primary Care Provider] - 1-2 days Decision Time: 03:02
[2022-04-21 02:31] LABS: Basophils # (A) 0.1 k/uL (0-0.2); Basophils % (A) 1 %; Eosinophils # (A) 0.1 k/uL (0-0.7); Eosinophils % (A) 1 %; HCT 27.3 % (34.0-46.0); Hypochromasia Slight; Lymphocytes % (A) 28 %; MCH 28.6 pg (25.0-35.0); MCHC 31.3 g/dL (31.0-37.0); MCV 91.3 fL (80.0-100.0); Mean Platelet Volume 7.2; Monocytes # (A) 0.4 k/uL (0-1.0); Monocytes % (A) 5 %; Neutrophils # (A) 4.4 k/uL (1.3-7.7); Neutrophils % (A) 62 %; Platelet Count 281 k/uL (150-450); RBC 2.99 m/uL (3.80-5.40); RDW 15.1 % (11.5-15.5); WBC 7.1 k/uL (3.8-10.6)
[2022-04-21 02:33] LABS: HGB 8.5 gm/dL (11.4-16.0)
[2022-04-21 02:50] LABS: Potassium 3.8 mmol/L (3.5-5.1)
[2022-04-21 03:39] VITALS: BP 130/78; PULSE 64; RESP 16
== END 2022-04-21 03:39 | disposition home or self-care (01) ==
LOC: EC 22:31
DX: R04.0 Epistaxis (principal); D64.9 Anemia, unspecified; I11.0 Hypertensive heart disease with heart failure; I50.9 Heart failure, unspecified; E78.5 Hyperlipidemia, unspecified; F32.A Depression, unspecified; F41.9 Anxiety disorder, unspecified; Z86.711 Personal history of pulmonary embolism; Z79.01 Long term (current) use of anticoagulants; Z79.82 Long term (current) use of aspirin; Z79.899 Other long term (current) drug therapy
CPT/HCPCS: 36415; 80048; 85025; 96374; 99283

== ENCOUNTER 2022-04-21 04:53 | Observation (INO) | payer BC ==
[2022-04-21] MEDS ORDERED: ONDANSETRON ODT 4 MG TAB PO STA (05:02)
[2022-04-21] MEDS ORDERED: MAG HYDROX/AL HYDROX/SIMETH 30 ML, HYOSCYAMINE ELIXIR 10 ML PO STA ×2 (05:03)
[2022-04-21] MEDS ORDERED: LORazepam 2 MG/ML INJ IV STA ×2 (05:06→06:55)
[2022-04-21] MEDS ORDERED: SODIUM CHLORIDE 0.9% 500 ML 500 ML IV STA (05:06)
[2022-04-21] MEDS ORDERED: ONDANSETRON 4 MG/2 ML VIAL IVP STA ×2 (05:06→06:55)
[2022-04-21 06:42] LABS: HGB 8.3 gm/dL (11.4-16.0); MCH 29.2 pg (25.0-35.0); MCHC 31.8 g/dL (31.0-37.0); MCV 91.7 fL (80.0-100.0); RBC 2.83 m/uL (3.80-5.40); RDW 14.9 % (11.5-15.5); WBC 5.6 k/uL (3.8-10.6)
[2022-04-21 06:43] LABS: Basophils % (A) 0 %; Eosinophils # (A) 0.1 k/uL (0-0.7); Eosinophils % (A) 1 %; Hypochromasia Slight; Lymphocytes # (A) 1.3 k/uL (1.0-4.8); Lymphocytes % (A) 24 %; Mean Platelet Volume 7.4; Monocytes # (A) 0.3 k/uL (0-1.0); Monocytes % (A) 6 %; Neutrophils # (A) 3.7 k/uL (1.3-7.7); Neutrophils % (A) 66 %; Platelet Count 277 k/uL (150-450)
--- NOTE | 2022-04-21 07:10 | ED ---
Nausea/Vomiting/Diarrhea HPI - General Chief complaint: Nausea/Vomiting/Diarrhea Stated complaint: vomiting Time Seen by Provider: 04/21/22 05:02 Source: patient Mode of arrival: ambulatory Limitations: no limitations - History of Present Illness Initial comments: This patient is a 61-year-old woman with previous history of coronary artery disease and of pulmonary embolism, therefore taking Eliquis and Effient, who has been having recurrent nosebleeds. She was seen here April 13, had a packing and then followed up with Dr. Clifton for cautery. The bleeding had recurred yesterday and she states she packed her nose at home, and she was seen here c ouple of hours ago. The bleeding appeared to be controlled at that time and she did go home but now she is having significant nausea, she has had a couple of episodes of vomiting and is having recurrent dry heaves. complaint: nausea, vomiting -: hour(s) Description of Vomiting: blood-streaked Associated Abdominal Pain: No Quality: cramping Improves with: none Worsens with: none Associated Symptoms: other (Lightheadedness) - Related Data Home Medications Medication Instructions Recorded Confirmed Multivit with Calcium,Iron,Min 1 tab PO DAILY 07/10/17 03/21/22 [Women's Multivitamin] ALPRAZolam [Xanax] 0.25 mg PO HS 04/24/19 03/21/22 Atorvastatin [Lipitor] 80 mg PO HS 10/07/21 03/21/22 lisinopriL [Zestril] 5 mg PO DAILY 01/25/22 03/21/22 Cholestyramine (with Sugar) 4 gm PO DAILY 03/18/22 03/18/22 [Cholestyramine Packet] Dicyclomine HCl 10 mg PO BID 03/18/22 03/21/22 Omeprazole 20 mg PO DAILY 03/18/22 03/21/22 Previous Rx's Medication Instructions Recorded Aspirin 81 mg PO DAILY tab 10/27/21 Loperamide [Imodium] 2 mg PO QID PRN cap 10/27/21 Metoprolol Tartrate [Lopressor] 12.5 mg PO BID #60 tab 10/27/21 Spironolactone [Aldactone] 25 mg PO DAILY #30 tab 10/27/21 Apixaban [Eliquis] 2.5 mg PO BID #0 03/22/22 Prasugrel [Effient] 10 mg PO DAILY #90 tab 03/22/22 Allergies Allergy/AdvReac Type Severity Reaction Status Date / Time latex Allergy Rash/Hives Verified 04/21/22 04:59 Penicillins Allergy Rash/Hives Verified 04/21/22 04:59 codeine AdvReac Confusion Verified 04/21/22 04:59 hydrocodone bitartrate AdvReac Confusion, Verified 04/21/22 04:59 [From Vicodin] ELEV HR, RASH-can take hydrocodone Review of Systems ROS Statement: Those systems with pertinent positive or pertinent negative responses have been documented in the HPI. ROS Other: All systems not noted in ROS Statement are negative. Constitutional: Denies: fever, chills Respiratory: Denies: cough, dyspnea Cardiovascular: Denies: chest pain, palpitations, edema Gastrointestinal: Reports: nausea, vomiting, hematemesis. Denies: abdominal pain, diarrhea, melena, hematochezia Genitourinary: Denies: dysuria, hematuria Musculoskeletal: Denies: back pain Skin: Denies: rash Neurological: Denies: headache, weakness Past Medical History Past Medical History: Heart Failure, Hyperlipidemia, Hypertension, Pulmonary Embolus (PE) Additional Past Medical History / Comment(s): admitted to [facility] on 10/07/21 with hypovolemic shock r/t severe dehydration/severe diarrhea/hypotension/acute renal failure, hypomagnesemia/hypokalemia & malnutrition & PE in Dec. 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 mild SOB w/exertion, cardiac stent History of Any Multi-Drug Resistant Organisms: None Reported Past Surgical History: Appendectomy, Bowel Resection, Heart Catheterization, He art Catheterization With Stent, Hysterectomy, Orthopedic Surgery Additional Past Surgical History / Comment(s): EGDs, colonoscopies, bowel resection, D&C, mitral valve repair, bilateral ankle ligament repair, R knee menicsus surgery, bert shoulder surgeries, bilateral elbow surgery for tendonitis, bilateral cataract removals, surgery for deviated septum, bert CTS Past Anesthesia/Blood Transfusion Reactions: Previous Problems w/ Anesthesia, Family History of Problems w/ Anesthesia, Postoperative Nausea & Vomiting (PONV) Additional Past Anesthesia/Blood Transfusion Reaction / Comment(s): MOTHER HAD PONV, low blood pressures after anesthesia Past Psychological History: Anxiety, Depression Smoking Status: Never smoker Past Alcohol Use History: None Reported Past Drug Use History: None Reported - Past Family History Mother Family Medical History: Cancer Additional Family Medical History / Comment(s): Mother is at age 60 Colon cancer. Father Family Medical History: Myocardial Infarction ([place]) Additional Family Medical History / Comment(s): Father of a [place] at the age o f 54 yrs. Brother(s) Family Medical History: Cancer Additional Family Medical History / Comment(s): Prostate cancer. General Exam Limitations: no limitations General appearance: alert, in no apparent distress Head exam: Present: atraumatic, normocephalic Eye exam: Present: normal appearance. Absent: scleral icterus, conjunctival injection ENT exam: Present: other (Patient has nasal packing bilateral nares. Currently no bleeding posteriorly) Respiratory exam: Present: normal lung sounds bilaterally. Absent: respiratory distress, wheezes, rales, rhonchi, stridor Cardiovascular Exam: Present: regular rate, normal rhythm, normal heart sounds. Absent: systolic murmur, diastolic murmur, rubs, gallop GI/Abdominal exam: Present: soft. Absent: distended, tenderness, guarding, rebound, rigid, mass Extremities exam: Present: normal inspection, normal capillary refill. Absent: pedal edema, calf tenderness Back exam: Present: normal inspection. Absent: CVA tenderness (R), CVA tenderness (L) Neurological exam: Present: alert Skin exam: Present: warm, dry, intact, normal color. Absent: rash Course Vital Signs 04/21/22 04/21/22 04:54 06:28 Temperature 98.2 F Pulse Rate 62 74 Respiratory 24 16 Rate Blood Pressure 135/81 128/74 O2 Sat by Pulse 100 Oximetry Medical Decision Making - Lab Data Result diagrams: 04/21/22 06:11 Lab Results 04/21/22 Range/Units 06:11 WBC 5.6 (3.8-10.6) k/uL RBC 2.83 L (3.80-5.40) m/uL Hgb 8.3 L (11.4-16.0) gm/dL Hct 26.0 L (34.0-46.0) % MCV 91.7 (80.0-100.0) fL MCH 29.2 (25.0-35.0) pg MCHC 31.8 (31.0-37.0) g/dL RDW 14.9 (11.5-15.5) % Plt Count 277 (150-450) k/uL MPV 7.4 Neutrophils % 66 % Lymphocytes % 24 % Monocytes % 6 % Eosinophils % 1 % Basophils % 0 % Neutrophils # 3.7 (1.3-7.7) k/uL Lymphocytes # 1.3 (1.0-4.8) k/uL Monocytes # 0.3 (0-1.0) k/uL Eosinophils # 0.1 (0-0.7) k/uL Basophils # 0.0 (0-0.2) k/uL Hypochromasia Slight Disposition Clinical Impression: Epistaxis, Anemia, Vomiting Disposition: ADMITTED IP TO THIS [facility] Condition: Good Instructions (If sedation given, give patient instructions): Acute Nausea and Vomiting (ED) Is patient prescribed a controlled substance at d/c from ED?: No Referrals: Francisco Javier Malone DO [Primary Care Provider] - 1-2 days Time of Disposition: 07:05
[2022-04-21] MEDS ORDERED: NALOXONE 0.4 MG/ML 1 ML VIAL IV PRN (07:23)
[2022-04-21] MEDS ORDERED: ACETAMINOPHEN TAB 325 MG TAB PO PRN (07:23)
[2022-04-21] MEDS ORDERED: ONDANSETRON 4 MG/2 ML VIAL IVP PRN (07:23)
[2022-04-21 07:28] LABS: Calcium 9.5 mg/dL (8.4-10.2); Potassium 3.2 mmol/L (3.5-5.1)
[2022-04-21] MEDS ORDERED: Potassium Replacement Protocol 1 EACH MISC MISCELLANE PRN ×2 (08:35→16:33)
[2022-04-21] MEDS ORDERED: ACETAMINOPHEN IV (For NPO) 1,000 MG in EMPTY BAG 1 BAG IVPB PRN (08:37)
[2022-04-21] MEDS ORDERED: FAMOTIDINE 20 MG TAB PO SCH ×2 (09:00)
[2022-04-21] MEDS: PANTOPRAZOLE 40 MG/10 ML VIAL IVP SCH (10:05)
[2022-04-21] MEDS: SODIUM CHLORIDE 0.9% 1,000 ML IV SCH (10:06)
[2022-04-21] MEDS: lisinopriL 5 MG TAB PO SCH (10:06)
[2022-04-21] MEDS: METOPROLOL TARTRATE 12.5 MG TAB PO SCH ×2 (10:06→20:50)
[2022-04-21] MEDS: SPIRONOLACTONE 25 MG TAB PO SCH (10:06)
[2022-04-21] MEDS: DICYCLOMINE 10 MG CAP PO SCH ×2 (10:06→20:50)
[2022-04-21] MEDS ORDERED: Magnesium Replacement Protocol 1 EACH MISC MISCELLANE PRN (13:28)
--- NOTE | 2022-04-21 15:20 | P.HPIM ---
History of Present Illness H&P Date: 04/21/22 Chief Complaint: Recurrent epistaxis This is a pleasant 61-year-old female with past medical history of bilateral PE 11/03 , cardiac catheterization with stenting of the left main and ostial left circumflex 04/03 on aspirin, Eliquis, Effient ,mitral valve repair 2005 , hypert ension,recently hypovolemic shock, acute renal failure, dehydration, chronic diarrhea, mild gastritis with normal colonoscopy, presented to the ER with complaints of recurrent nosebleeds. Follows with ENT Dr. Clifton. Reports she has had 3 cauterizations. Bleeding started around 3 PM yesterday .Initially presented to the ER a few hours prior, discharged and returned with ongoing nosebleed, nausea, vomiting. Bilateral nares packed, mild lightheadedness. ENT consult in place. Afebrile, normal WBC. Hemoglobin 8.3, platelets 277, sodium 131, potassium 3.2, bicarb 14, BUN 14, creatinine 1.28 (baseline), magnesium 1.4, troponin negative 1. Denies chest pain, palpitations or increased s hortness of breath. Denies focal deficits. Review of Systems ROS Statement: Those systems with pertinent positive or pertinent negative responses have been documented in the HPI. ROS Other: All systems not noted in ROS Statement are negative. Past Medical History Past Medical History: Heart Failure, Hyperlipidemia, Hypertension, Pulmonary Embolus (PE) Additional Past Medical History / Comment(s): admitted to [facility] on 10/07/21 with hypovolemic shock r/t severe dehydration/severe diarrhea/hypotension/acute renal failure, hypomagnesemia/hypokalemia & malnutrition & PE in Dec. 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 mild SOB w/exertion, cardiac stent History of Any Multi-Drug Resistant Organisms: None Reported Past Surgical History: Appendectomy, Bowel Resection, Heart Catheterization, Heart Catheterization With Stent, Hysterectomy, Orthopedic Surgery Additional Past Surgical History / Comment(s): EGDs, colonoscopies, bowel resection, D&C, mitral valve repair, bilateral ankle ligament repair, R knee menicsus surgery, bert shoulder surgeries, bilateral elbow surgery for tendonitis, bilateral cataract removals, surgery for deviated septum, bert CTS Past Anesthesia/Blood Transfusion Reactions: Previous Problems w/ Anesthesia, Family History of Problems w/ Anesthesia, Postoperative Nausea & Vomiting (PONV) Additional Past Anesthesia/Blood Transfusion Reaction / Comment(s): MOTHER HAD PONV, low blood pressures after anesthesia Past Psychological History: Anxiety, Depression Smoking Status: Never smoker Past Alcohol Use History: None Reported Past Drug Use History: None Reported - Past Family History Mother Family Medical History: Cancer Additional Family Medical History / Comment(s): Mother is at age 60 Colon cancer. Father Family Medical History: Myocardial Infarction ([place]) Additional Family Medical History / Comment(s): Father of a [place] at the age of 54 yrs. Brother(s) Family Medical History: Cancer Additional Family Medical History / Comment(s): Prostate cancer. Medications and Allergies Home Medications Medication Instructions Recorded Confirmed Type Multivit with Calcium,Iron,Min 1 tab PO DAILY 07/10/17 04/21/22 History [Women's Multivitamin] ALPRAZolam [Xanax] 0.25 mg PO HS 04/24/19 04/21/22 History Aspirin 81 mg PO DAILY tab 10/27/21 04/21/22 Rx Spironolactone [Aldactone] 25 mg PO DAILY #30 tab 10/27/21 04/21/22 Rx Cholestyramine (with Sugar) 4 gm PO SUTUTH 03/18/22 04/21/22 History [Cholestyramine Packet] Dicyclomine HCl 10 mg PO BID 03/18/22 04/21/22 History Omeprazole 20 mg PO DAILY 03/18/22 04/21/22 History Prasugrel [Effient] 10 mg PO DAILY #90 tab 03/22/22 04/21/22 Rx Apixaban [Eliquis] 2.5 mg PO BID 04/21/22 04/21/22 History Atorvastatin [Lipitor] 80 mg PO DAILY 04/21/22 04/21/22 History Cefuroxime [Ceftin] 250 mg PO BID 04/21/22 04/21/22 History Metoprolol Succinate (ER) [Toprol 25 mg PO DAILY 04/21/22 04/21/22 History Xl] lisinopriL [Zestril] 5 mg PO DAILY 04/21/22 04/21/22 History Allergies Allergy/AdvReac Type Severity Reaction Status Date / Time latex Allergy Rash/Hives Verified 04/21/22 07:49 Penicillins Allergy Rash/Hives Verified 04/21/22 07:49 codeine AdvReac Confusion Verified 04/21/22 07:49 hydrocodone bitartrate AdvReac Confusion, Verified 04/21/22 07:49 [From Vicodin] ELEV HR, RASH-can take hydrocodone Physical Exam Vitals: Vital Signs Temp Pulse Resp BP Pulse Ox 04/21/22 10:11 75 18 120/75 100 04/21/22 06:28 74 16 128/74 04/21/22 04:54 98.2 F 62 24 135/81 100 Intake and Output 04/20/22 04/21/22 04/21/22 22:59 06:59 14:59 Other: Weight 49.895 kg - Exam PHYSICAL EXAM: VITAL SIGNS: As above GENERAL: Alert and oriented 3, Sitting up on stretcher, no acute distress. HEENT: Conjunctivae normal. eyes normal. NECK: Supple, No JVD. CARDIOVASCULAR: S1, S2 regular. No murmur RESPIRATION: Equal air entry , bilateral bases diminished ABDOMEN: Soft, nontender, nondistended . No guarding. no masses palpable. Positive Bowel sounds heard. LEGS: No edema. no swelling NERVOUS SYSTEM: Cranial N 2-12 grossly normal. No focal deficits. Strength and sensation grossly intact. Skin: Warm and dry no rash Results CBC & Chem 7: 04/21/22 06:11 04/21/22 06:11 Labs: Abnormal Lab Results - Last 24 Hours (Table) 04/21/22 04/21/22 04/21/22 Range/Units 06:11 06:11 06:11 RBC 2.83 L (3.80-5.40) m/uL Hgb 8.3 L (11.4-16.0) gm/dL Hct 26.0 L (34.0-46.0) % Sodium 131 L (137-145) mmol/L Potassium 3.2 L (3.5-5.1) mmol/L Carbon Dioxide 14 L (22-30) mmol/L Creatinine 1.28 H (0.52-1.04) mg/dL Magnesium 1.4 L (1.6-2.3) mg/dL Assessment and Plan Assessment: Epistaxis, recurrent 3 in a patient with bilateral PE 11/02, recent cardiac cath with stenting of left main and ostial left circumflex in March 2022, on Aspirin, Effient, and Eliquis Acute on chronic anemia, baseline hemoglobin 12. Hypokalemia Hypomagnesemia Hypovolemic hyponatremia Dehydration Chronic CHF, systolic dysfunction, EF 20-25% Cardiomyopathy, EF 20-25%, possibly ischemic as prior echo in 2017 reported no rmal LV function CAD History of mitral valve repair at [facility],2005 History of Hypovolemic shock, related to severe dehydration, severe diarrhea, anemia. EGD reported mild antral gastritis, normal colonoscopy. Hypertension hyperlipidemia Chronic renal failure, stage III Anemia of chronic disease History of bowel resection with chronic diarrhea Family history of colon cancer Severe protein calorie malnutrition, BMI 20.1 Plan: Continue on current medication regime, monitoring and symptomatic treatment. Gentle IV fluid hydration in a patient with chronic CHF, antiemetics, PPI. Magnesium and potassium replacement protocols ordered. Telemetry monitoring. ENT consult in place. Close monitoring of hemoglobin, electrolytes, renal function with repeat labs ordered for a.m. Discharge planning in progress for tomorrow. On discharge, may consider discontinuing Aspirin and having patient follow up with line installer trolley for further recommendations regarding antiplatelet therapy secondary to recent stent considering her recurrent nosebleeds. The impression and plan of care has been dictated as directed. : I performed a history and examination of this patient, discussed the same with the dictator. I agree with the dictator's note ,documented as a scribe. Any additional findings or plans will be noted.
[2022-04-21] MEDS: ONDANSETRON 4 MG/2 ML VIAL IVP PRN (16:28)
[2022-04-21] MEDS: MAGNESIUM SULFATE-D5W PMX 1 GM in DEXTROSE/WATER 1 100ML.BAG IVPB SCH ×3 (16:44→18:22)
[2022-04-21] MEDS: POTASSIUM CHLORIDE ER 20 MEQ TAB.ER PO SCH ×2 (16:44→16:45)
[2022-04-21] MEDS ORDERED: ALPRAZolam 0.25 MG TAB PO SCH (21:00)
[2022-04-21] MEDS ORDERED: ATORVASTATIN 80 MG TAB PO SCH (21:00)
[2022-04-22] MEDS: ONDANSETRON 4 MG/2 ML VIAL IVP PRN ×2 (00:15→05:46)
[2022-04-22 01:28] VITALS: TEMP 97.5
[2022-04-22] MEDS: SODIUM CHLORIDE 0.9% 1,000 ML IV SCH (03:56)
[2022-04-22] MEDS ORDERED: PANTOPRAZOLE 40 MG TABLET PO SCH (07:30)
[2022-04-22] MEDS: METOPROLOL TARTRATE 12.5 MG TAB PO SCH (08:26)
[2022-04-22] MEDS: DICYCLOMINE 10 MG CAP PO SCH (08:26)
[2022-04-22] MEDS: PANTOPRAZOLE 40 MG/10 ML VIAL IVP SCH (08:26)
[2022-04-22 08:50] LABS: Basophils # (A) 0.04 X 10*3/uL (0.00-0.10); Basophils % (A) 0.7 %; Eosinophils # (A) 0.13 X 10*3/uL (0.04-0.35); Eosinophils % (A) 2.3 %; HCT 24.9 % (37.2-46.3); HGB 7.8 g/dL (12.0-15.0); Immature Grans, Automated 0.4 %; Lymphocytes # (A) 1.34 X 10*3/uL (0.90-5.00); Lymphocytes % (A) 23.6 %; MCH 28.5 pg (27.0-32.0); MCHC 31.3 g/dL (32.0-37.0); MCV 90.9 fL (80.0-97.0); Mean Platelet Volume 10.1 fL (9.5-12.2); Monocytes # (A) 0.53 X 10*3/uL (0.20-1.00); Monocytes % (A) 9.3 %; NRBC Per 100 WBC 0 /100 WBCS (0.0-0.0); Neutrophils # (A) 3.62 X 10*3/uL (1.80-7.70); Neutrophils % (A) 63.7 %; Platelet Count 275 X 10*3/uL (140-440); RBC 2.74 X 10*6/uL (4.10-5.20); RDW 14.6 % (11.5-14.5); WBC 5.68 X 10*3/uL (4.50-10.00)
[2022-04-22 09:01] LABS: African American GFR (CKD) 46.6 (60.0-200.0); Anion Gap 6.8 mmol/L (10.00-18.00); Blood Urea Nitrogen 8.4 mg/dL (9.0-27.0); Calcium 9.5 mg/dL (8.7-10.3); Carbon Dioxide 19.2 mmol/L (20.0-27.5); Magnesium 2.6 mg/dL (1.5-2.4); Non-African American GFR(CKD) 40.2 (60.0-200.0); Potassium 4.8 mmol/L (3.5-5.5)
[2022-04-22 10:06] VITALS: RESP 16
[2022-04-22 11:32] VITALS: BP 97/59; PULSE 61
[2022-04-22] MEDS: lisinopriL 5 MG TAB PO SCH (12:03)
[2022-04-22] MEDS: SPIRONOLACTONE 25 MG TAB PO SCH (12:12)
--- NOTE | 2022-04-22 14:09 | P.GSCN ---
History of Present Illness Consult date: 04/22/22 Reason for Consult: Epistasis, recurrent Requesting physician: Francisco Javier Malone History of present illness: This is a 61-year-old white female who had a pulmonary embolus and a stent that she been placed on blood thinners subsequent to this medical treatment. Unfortunately she developed recurring epistaxis and has seen my partner and underwent previous cauterization. On Monday in the morning she had some spotting of blood by Monday evening 10 PM she went to the emergency room here at [facility]. She placed packs and her nose on her own which seemed to have worked and she is has been admitted for observation. Her hemoglobin is about 7. She is not short of breath. She has bilateral nasal packs in place. She has continued need for anticoagulant therapy because of her medical issues. Review of Systems - Constitutional Reports as per HPI - EENT Ears, nose, mouth and throat: Reports as per HPI - Cardiovascular Reports as per HPI - Respiratory Reports as per HPI - Gastrointestinal Reports as per HPI - Genitourinary Genitourinary: Reports as per HPI Menstruation: Reports as per HPI - Musculoskeletal Reports as per HPI - Integumentary Reports as per HPI - Neurological Reports as per HPI - Psychiatric Reports as per HPI - Endocrine Reports as per HPI - Hematologic/Lymphatic Reports as per HPI - Allergic/Immunologic Reports as per HPI Past Medical History Past Medical History: Heart Failure, Hyperlipidemia, Hypertension, Pulmonary Embolus (PE) Additional Past Medical History / Comment(s): admitted to [facility] on 10/07/21 with hypovolemic shock r/t severe dehydration/severe diarrhea/hypotension/acute renal failure, hypomagnesemia/hypokalemia & malnutrition & PE in Dec. 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 mild SOB w/exertion, cardiac stent History of Any Multi-Drug Resistant Organisms: None Reported Past Surgical History: Appendectomy, Bowel Resection, Heart Catheterization, Heart Catheterization With Stent, Hysterectomy, Orthopedic Surgery Additional Past Surgical History / Comment(s): EGDs, colonoscopies, bowel resection, D&C, mitral valve repair, bilateral ankle ligament repair, R knee menicsus surgery, bert shoulder surgeries, bilateral elbow surgery for tendonitis, bilateral cataract removals, surgery for deviated septum, bert CTS Past Anesthesia/Blood Transfusion Reactions: Previous Problems w/ Anesthesia, Family History of Problems w/ Anesthesia, Postoperative Nausea & Vomiting (PONV) Additional Past Anesthesia/Blood Transfusion Reaction / Comm: MOTHER HAD PONV, low blood pressures after anesthesia Date of Last Stent Placement:: mar, 2021 Past Psychological History: Anxiety, Depression Smoking Status: Never smoker Past Alcohol Use History: None Reported Past Drug Use History: None Reported - Past Family History Mother Family Medical History: Cancer Additional Family Medical History / Comment(s): Mother is at age 60 Colon cancer. Father Family Medical History: Myocardial Infarction ([place]) Additional Family Medical History / Comment(s): Father of a [place] at the age of 54 yrs. Brother(s) Family Medical History: Cancer Additional Family Medical History / Comment(s): Prostate cancer. Medications and Allergies Home Medications Medication Instructions Recorded Confirmed Type Multivit with Calcium,Iron,Min 1 tab PO DAILY 07/10/17 04/21/22 History [Women's Multivitamin] ALPRAZolam [Xanax] 0.25 mg PO HS 04/24/19 04/21/22 History Spironolactone [Aldactone] 25 mg PO DAILY #30 tab 10/27/21 04/21/22 Rx Cholestyramine (with Sugar) 4 gm PO SUTUTH 03/18/22 04/21/22 History [Cholestyramine Packet] Dicyclomine HCl 10 mg PO BID 03/18/22 04/21/22 History Omeprazole 20 mg PO DAILY 03/18/22 04/21/22 History Prasugrel [Effient] 10 mg PO DAILY #90 tab 03/22/22 04/21/22 Rx Apixaban [Eliquis] 2.5 mg PO BID 04/21/22 04/21/22 History Atorvastatin [Lipitor] 80 mg PO DAILY 04/21/22 04/21/22 History Cefuroxime [Ceftin] 250 mg PO BID 04/21/22 04/21/22 History Metoprolol Succinate (ER) [Toprol 25 mg PO DAILY 04/21/22 04/21/22 History Xl] lisinopriL [Zestril] 5 mg PO DAILY 04/21/22 04/21/22 History Allergies Allergy/AdvReac Type Severity Reaction Status Date / Time latex Allergy Rash/Hives Verified 04/21/22 07:49 Penicillins Allergy Rash/Hives Verified 04/21/22 07:49 codeine AdvReac Confusion Verified 04/21/22 07:49 hydrocodone bitartrate AdvReac Confusion, Verified 04/21/22 07:49 [From Vicodin] ELEV HR, RASH-can take hydrocodone Surgical - Exam Osteopathic Statement: *. No significant issues noted on an osteopathic structural exam other than those noted in the History and Physical/Consult. Vital Signs Temp Pulse Resp BP Pulse Ox 98.2 F 62 24 135/81 100 04/21/22 04:54 04/21/22 04:54 04/21/22 04:54 04/21/22 04:54 04/21/22 04:54 - General well developed, well nourished - Eyes CONJUNCTIVA PALE PERRL, normal ocular movement - ENT Head is normocephalic the face is symmetric. There is no abnormal movements, is now tumors or masses or parasites noted to the scalp. Auricles are well-formed, canals are clear. Nose shows bilateral packing in place utilizing Merocel sponge packs. Mouth and throat no oral lesions are noted mucosa is pale. Neck shows no tumors or masses. - Neck no masses - Respiratory normal expansion, normal respiratory effort - Integumentary no rash, no growths - Neurologic normal coordination, normal sensation - Musculoskeletal normal gait, normal posture - Psychiatric oriented to time, oriented to person, oriented to place, speech is normal Results - Labs 04/22/22 06:18 04/22/22 06:18 Abnormal Lab Results - Last 24 Hours (Table) 04/22/22 04/22/22 Range/Units 06:18 06:18 RBC 2.74 L (4.10-5.20) X 10*6/uL Hgb 7.8 L (12.0-15.0) g/dL Hct 24.9 L (37.2-46.3) % MCHC 31.3 L (32.0-37.0) g/dL RDW 14.6 H (11.5-14.5) % Sodium 132 L (135-145) mmol/L Carbon Dioxide 19.2 L (20.0-27.5) mmol/L Anion Gap 6.80 L (10.00-18.00) mmol/L BUN 8.4 L (9.0-27.0) mg/dL Est GFR (CKD-EPI)AfAm 46.6 L (60.0-200.0) Est GFR (CKD-EPI)NonAf 40.2 L (60.0-200.0) BUN/Creatinine Ratio 6.00 L (12.00-20.00) Ratio Magnesium 2.6 H (1.5-2.4) mg/dL Diabetes panel 04/22/22 Range/Units 06:18 Sodium 132 L (135-145) mmol/L Potassium 4.8 (3.5-5.5) mmol/L Chloride 106 (96-109) mmol/L Carbon Dioxide 19.2 L (20.0-27.5) mmol/L BUN 8.4 L (9.0-27.0) mg/dL Creatinine 1.4 (0.6-1.5) mg/dL Glucose 87 (70-110) mg/dL Calcium 9.5 (8.7-10.3) mg/dL Calcium panel 04/22/22 Range/Units 06:18 Calcium 9.5 (8.7-10.3) mg/dL Pituitary panel 04/22/22 Range/Units 06:18 Sodium 132 L (135-145) mmol/L Potassium 4.8 (3.5-5.5) mmol/L Chloride 106 (96-109) mmol/L Carbon Dioxide 19.2 L (20.0-27.5) mmol/L BUN 8.4 L (9.0-27.0) mg/dL Creatinine 1.4 (0.6-1.5) mg/dL Glucose 87 (70-110) mg/dL Calcium 9.5 (8.7-10.3) mg/dL Adrenal panel 04/22/22 Range/Units 06:18 Sodium 132 L (135-145) mmol/L Potassium 4.8 (3.5-5.5) mmol/L Chloride 106 (96-109) mmol/L Carbon Dioxide 19.2 L (20.0-27.5) mmol/L BUN 8.4 L (9.0-27.0) mg/dL Creatinine 1.4 (0.6-1.5) mg/dL Glucose 87 (70-110) mg/dL Calcium 9.5 (8.7-10.3) mg/dL Assessment and Plan (1) Blood loss anemia Current Visit: Yes Status: Acute Code(s): D50.0 - IRON DEFICIENCY ANEMIA SECONDARY TO BLOOD LOSS (CHRONIC) SNOMED Code(s): 417811126 Plan: This patient has need for continued anticoagulant therapy. I'm recommending that she keep her nasal packs until Monday and follow up in our office with Dr. Scott with cauterization may be needed. She is to rest with her head elevated. She is to keep her nasal packs in place until Monday. She will call us through her office line if any other issues should arise. We will see her on Monday for reevaluation in office Time with Patient: Greater than 30
--- NOTE | 2022-04-22 16:50 | P.DS ---
Providers Date of admission: 04/21/22 07:26 Expected date of discharge: 04/22/22 Attending physician: Francisco Javier Malone Consults: 04/21/22 07:23 Consult Physician Routine Consulting Provider: Flavio Melgar Reason/Comments: Epistaxis Do you want consulting provider notified?: Yes Primary care physician: Francisco Javier Malone [facility] Course: Final Diagnoses: Epistaxis, recurrent 3 in a patient with bilateral PE 11/02, recent cardiac cath with stenting of left main and ostial left circumflex in March 2022, on Aspirin, Effient, and Eliquis Acute blood loss on chronic anemia, baseline hemoglobin 12. Hypokalemia Hypomagnesemia Hypovolemic hyponatremia Dehydration Chronic CHF, systolic dysfunction, EF 20-25% Cardiomyopathy, EF 20-25%, possibly ischemic as prior echo in 2016 reported n ormal LV function CAD History of mitral valve repair at [facility],2005 History of Hypovolemic shock, related to severe dehydration, severe diarrhea, anemia. EGD reported mild antral gastritis, normal colonoscopy. Hypertension hyperlipidemia Chronic renal failure, stage III Anemia of chronic disease History of bowel resection with chronic diarrhea Family history of colon cancer Severe protein calorie malnutrition, BMI 20.1 Hospital course:This is a pleasant 61-year-old female with past medical history of bilateral PE 11/03 , cardiac catheterization with stenting of the left main and ostial left circumflex 04/03 on aspirin, Eliquis, Effient ,mitral valve repair 2005 , hypertension,recently hypovolemic shock, acute renal failure, dehydration, chronic diarrhea, mild gastritis with normal colonoscopy, presented to the ER with complaints of recurrent nosebleeds. Follows with ENT Dr. Clifton. Reports she has had 3 cauterizations. Bleeding started around 3 PM yesterday .Initially presented to the ER a few hours prior, discharged and returned with ongoing nosebleed, nausea, vomiting. Bilateral nares packed, mild lightheadedness. ENT consult in place. Afebrile, normal WBC. Hemoglobin 8.3, platelets 277, sodium 131, potassium 3.2, bicarb 14, BUN 14, creatinine 1.28 (baseline), magnesium 1.4, troponin negative 1. Denies chest pain, palpitations or increased shortness of breath. Denies focal deficits. Bleeding has subsided. A.m. labs pending. ENT consult in place with recommendations pending. Nares remain with packing. Vital signs stable. Borderline hypotension-asymptomatic. Patient has been advised to hold her lisinopril if systolic blood pressure less than 120. Good diet intake with no nausea or vomiting. Denies abdominal pain. Denies chest pain, palpitations or shortness of breath. Denies lightheadedness, dizziness or focal deficits. Patient will be discharged home later today pending labs, final DC recommendations and clearance per ENT. The impression and plan of care has been dictated as directed. : I performed a history and examination of this patient, discussed the same with the dictator. I agree with the dictator's note ,documented as a scribe. Any additional findings or plans will be noted. Patient Condition at Discharge: Stable Plan - Discharge Summary New Discharge Prescriptions: Discontinued Aspirin 81 mg PO DAILY tab No Action Multivit with Calcium,Iron,Min [Women's Multivitamin] 1 tab PO DAILY ALPRAZolam [Xanax] 0.25 mg PO HS Spironolactone [Aldactone] 25 mg PO DAILY #30 tab Dicyclomine HCl 10 mg PO BID Prasugrel [Effient] 10 mg PO DAILY #90 tab Apixaban [Eliquis] 2.5 mg PO BID Metoprolol Succinate (ER) [Toprol Xl] 25 mg PO DAILY Cholestyramine (with Sugar) [Cholestyramine Packet] 4 gm PO SUTUTH Omeprazole 20 mg PO DAILY Atorvastatin [Lipitor] 80 mg PO DAILY lisinopriL [Zestril] 5 mg PO DAILY Cefuroxime [Ceftin] 250 mg PO BID Discharge Medication List Multivit with Calcium,Iron,Min [Women's Multivitamin] 1 tab PO DAILY 07/10/17 [History] ALPRAZolam [Xanax] 0.25 mg PO HS 04/24/19 [History] Spironolactone [Aldactone] 25 mg PO DAILY #30 tab 10/27/21 [Rx] Cholestyramine (with Sugar) [Cholestyramine Packet] 4 gm PO SUTUTH 03/18/22 [His tory] Dicyclomine HCl 10 mg PO BID 03/18/22 [History] Omeprazole 20 mg PO DAILY 03/18/22 [History] Prasugrel [Effient] 10 mg PO DAILY #90 tab 03/22/22 [Rx] Apixaban [Eliquis] 2.5 mg PO BID 04/21/22 [History] Atorvastatin [Lipitor] 80 mg PO DAILY 04/21/22 [History] Cefuroxime [Ceftin] 250 mg PO BID 04/21/22 [History] Metoprolol Succinate (ER) [Toprol Xl] 25 mg PO DAILY 04/21/22 [History] lisinopriL [Zestril] 5 mg PO DAILY 04/21/22 [History] Follow up Appointment(s)/Referral(s): Wily Garcia MD [STAFF PHYSICIAN] - 05/02/22 4:45 pm Francisco Javier Malone DO [Primary Care Provider] - 3 Days Flavio Melgar MD [STAFF PHYSICIAN] - 04/25/22 11:00 am Ambulatory/Diagnostic Orders: Complete Blood Count w/diff [LAB.AMB] Time Frame: 3 Days, Location: [facility] Patient Instructions/Handouts: Nosebleed (GEN), Acute Nausea and Vomiting (ED) Activity/Diet/Wound Care/Special Instructions: Hold lisinopril if systolic blood pressure less than 120, maintain log of a.m. blood pressures, take to follow-up with PCP for further recommendations Discharge Disposition: HOME SELF-CARE
== END 2022-04-22 15:04 | disposition home or self-care (01) ==
LOC: EC 04:53 → 6NMEDSUR 07:26
PROVIDERS: ADMIT Family Medicine; ATTEND Family Medicine
DX: R04.0 Epistaxis (principal); D62 Acute posthemorrhagic anemia; E87.6 Hypokalemia; E83.42 Hypomagnesemia; E86.1 Hypovolemia; E87.1 Hypo-osmolality and hyponatremia; E86.0 Dehydration; I13.0 Hypertensive heart and chronic kidney disease with heart failure and stage 1 through stage 4 chronic kidney disease, or unspecified chronic kidney disease; I50.20 Unspecified systolic (congestive) heart failure; N18.30 Chronic kidney disease, stage 3 unspecified; I42.9 Cardiomyopathy, unspecified; I25.10 Atherosclerotic heart disease of native coronary artery without angina pectoris; D63.8 Anemia in other chronic diseases classified elsewhere; K52.9 Noninfective gastroenteritis and colitis, unspecified; E43 Unspecified severe protein-calorie malnutrition; Z68.20 Body mass index [BMI] 20.0-20.9, adult; I95.9 Hypotension, unspecified; Z86.711 Personal history of pulmonary embolism; Z95.5 Presence of coronary angioplasty implant and graft; E78.5 Hyperlipidemia, unspecified; F41.9 Anxiety disorder, unspecified; F32.A Depression, unspecified; K29.70 Gastritis, unspecified, without bleeding; K92.0 Hematemesis; Z71.9 Counseling, unspecified; Z90.49 Acquired absence of other specified parts of digestive tract; Z90.710 Acquired absence of both cervix and uterus; Z98.890 Other specified postprocedural states; Z79.82 Long term (current) use of aspirin; Z79.899 Other long term (current) drug therapy; Z79.02 Long term (current) use of antithrombotics/antiplatelets; Z79.01 Long term (current) use of anticoagulants; Z79.2 Long term (current) use of antibiotics; Z88.5 Allergy status to narcotic agent; Z88.0 Allergy status to penicillin; Z91.040 Latex allergy status; Z80.0 Family history of malignant neoplasm of digestive organs; Z80.42 Family history of malignant neoplasm of prostate; Z82.49 Family history of ischemic heart disease and other diseases of the circulatory system
CPT/HCPCS: 96376 ×3; 96365; 96366; 96361; 96375; 99285; 36415; 80048 ×2; 83735 ×2; 84484; 85025 ×2; G0378 ×2; J2060; J2405 ×2; J3475; C9113 ×2; 93005

== ENCOUNTER → 2022-04-25 | Outpatient (CLI) | payer BC ==
[2022-04-25 18:01] LABS: Basophils # (A) 0.06 X 10*3/uL (0.00-0.10); Basophils % (A) 0.8 %; Eosinophils # (A) 0.18 X 10*3/uL (0.04-0.35); Eosinophils % (A) 2.5 %; HCT 29.3 % (37.2-46.3); HGB 8.9 g/dL (12.0-15.0); Immature Grans, Automated 0.4 %; Lymphocytes # (A) 1.81 X 10*3/uL (0.90-5.00); Lymphocytes % (A) 25.1 %; MCH 28.4 pg (27.0-32.0); MCHC 30.4 g/dL (32.0-37.0); MCV 93.6 fL (80.0-97.0); Mean Platelet Volume 9.9 fL (9.5-12.2); Monocytes # (A) 0.48 X 10*3/uL (0.20-1.00); Monocytes % (A) 6.7 %; NRBC Per 100 WBC 0 /100 WBCS (0.0-0.0); Neutrophils # (A) 4.64 X 10*3/uL (1.80-7.70); Neutrophils % (A) 64.5 %; Platelet Count 337 X 10*3/uL (140-440); RBC 3.13 X 10*6/uL (4.10-5.20); RDW 14.4 % (11.5-14.5)
== END | disposition home or self-care (01) ==
LOC: LABWHC1 12:04
PROVIDERS: ATTEND Nurse Practitioner
DX: D64.9 Anemia, unspecified (principal)
CPT/HCPCS: 36415; 85025

== ENCOUNTER → 2024-10-31 | Outpatient (CLI) | payer BC, OTHER ==
[2024-10-31 19:23] LABS: ALT 13 U/L (8-44); AST 18 U/L (13-35); Chol/HDL Ratio 2.81 Ratio; LDL Cholesterol,Calculated 50.7 mg/dL (0.0-131.0)
== END | disposition home or self-care (01) ==
LOC: LABWHC1 13:27
PROVIDERS: ATTEND Internal Medicine Interventional Cardiology
DX: E78.2 Mixed hyperlipidemia (principal)
CPT/HCPCS: 36415; 80061; 84450; 84460